=== PATIENT | female | born 1950 | race Caucasian/White ===

== ENCOUNTER → 2019-11-29 15:09 | Outpatient (BNVA) | payer MEDICARE, OTHER, SELFPAY | PROVIDERS: Family Provider Nurse Practitioner; PCP Urology; Visit Provider Nurse Practitioner | DX: R53.83 Other fatigue (principal) | CPT/HCPCS: 82728; 83540; 83550; 84443; 85025 ==

== ENCOUNTER → 2020-03-19 09:16 | Outpatient (BNVA) | payer MEDICARE, OTHER, SELFPAY | PROVIDERS: Family Provider Nurse Practitioner; PCP Nurse Practitioner; Referring Provider Nurse Practitioner; Visit Provider Specialist | DX: M25.531 Pain in right wrist (principal); M25.532 Pain in left wrist | CPT/HCPCS: 73110 ==

== ENCOUNTER → 2020-05-29 09:54 | Outpatient (BNVA) | payer MEDICARE, OTHER, SELFPAY | PROVIDERS: Family Provider Nurse Practitioner; PCP Nurse Practitioner; Visit Provider Internal Medicine | DX: Z11.59 Encounter for screening for other viral diseases (principal) | CPT/HCPCS: 87635 ==

== ENCOUNTER 2020-05-31 13:49 | Outpatient (CLI) | payer MEDICARE, OTHER, SELFPAY ==
--- NOTE | 2020-05-31 14:20 | PFTS_ITS ---
Date of Study:05/31/20 Date of Dictation: MECHANICS: Forced vital capacity (FVC) is normal. Forced expiratory volume in one second (FEV1) is normal. FEV1/FVC is normal. FLOW VOLUME LOOP: . LUNG VOLUMES: Total lung capacity (TLC) is normal. Residual volume (RV) is normal. DIFFUSING CAPACITY FOR CARBON MONOXIDE: Normal. INTERPRETATION: The pulmonary function tests are normal. Lung volumes are normal. Gas exchange (DLCO) is normal. MTDD
--- NOTE | 2020-05-31 14:41 | PFTS_ITS ---
Date of Study:05/31/20 Date of Dictation: 06/01/2020 MECHANICS: Forced vital capacity (FVC) is Normal Forced expiratory volume in one second (FEV1) is . Normal FEV1/FVC is Normal No significant bronchodilator response FLOW VOLUME LOOP: Slight scooping of expiratory limb suggestive of small airway obstruction . LUNG VOLUMES: Total lung capacity (TLC) is normal. Residual volume (RV) is . Normal DIFFUSING CAPACITY FOR CARBON MONOXIDE: Normal . INTERPRETATION: Normal study but FV loop showing slight scooping of expiratory limb suggestive of lower airway obstruction. Please correlate clinically MTDD
== END 2020-05-31 13:50 | disposition home or self-care (01) ==
LOC: RT 13:49
PROVIDERS: PCP Nurse Practitioner; Visit Provider Internal Medicine Pulmonary Disease
DX: J45.909 Unspecified asthma, uncomplicated (principal); K21.9 Gastro-esophageal reflux disease without esophagitis
CPT/HCPCS: 94060; 94070; 94726; 94729; J7611

== ENCOUNTER 2020-06-01 06:53 | Day surgery (SDC) | payer MEDICARE, OTHER, SELFPAY ==
[2020-05-31 13:18] VITALS: BMI 29.6
[2020-06-01 07:11] VITALS: BP 171/74; PULSE 77; RESP 18; TEMP 37.2; O2SAT 96
[2020-06-01] MEDS: CELEcoxib 200 mg Capsule 400 MG PO (07:21)
[2020-06-01] MEDS: sodium chloride 0.9% 1,000 ML 30 ML IV (07:40)
--- NOTE | 2020-06-01 07:53 | ANES.PREANE2 ---
Pre-Anesthetic Assessment Pre-Anesthetic Assessment: Height/Weight: Height 1.57 m Weight 73.482 kg Temp Pulse Resp BP Pulse Ox 99.0 F 77 18 171/74 96 06/01/20 07:11 06/01/20 07:11 06/01/20 07:11 06/01/20 07:11 06/01/20 07:11 Preop Diagnosis: Left carpal tunnel syndrome Proposed Procedure: Operation Date: 06/01/20 08:30 Proposed Procedures p Carpal Tunnel Release 53082 G56.02(Left) - Kristen Winters MD Familial anesthetic complications: None Was Beta Mp taken within 24 hours: N/A Last intake: Intake Last Liquid Date 05/31/20 Last Liquid Time 20:30 Last Solid Date 05/31/20 Last Solid Time 20:30 Social: Social History: No alcohol and No tobacco Exam: Pre-Anes Outpt Exam: alert, oriented x 3, clear to auscultation bilaterally and regular rate & rhythm Airway: Cervical ROM: WNL MP: 1 Dentition: Full Pulmonary: Pulmonary: Cough (seasonal allergies vs asthma (chronic) seeing Dr. Garcia - no dyspnea) GI: GI: GERD Metabolic: Metabolic: Hyperlipidemia and Thyroid Musc/skel: Comments: breast cancer L Neuropsych: Neuropsych: Neuropathy Anesthetic Plan: ASA status: 2 Anesthesia: MAC and Regional (specify below) Risk of > 500 ml blood loss (7ml/kg in children): No Meds/Allergies Current Medications: Current Medications Generic Name Dose Route Start Last Admin Trade Name Freq PRN Reason Stop Dose Admin Sodium Chloride 1,000 mls @ 30 ml s/hr 06/01/20 06:30 06/01/20 07:40 Sodium Chloride 0.9% IV 06/02/20 06:29 30 mls/hr .Q24H KAMILLA Administration PFSH Anesthesia PFSH: Medical History (Updated 05/31/20 @ 13:17 by Estefania Phelan) Breast cancer, left Chronic cystitis Chronic GERD Environmental and seasonal allergies Hx of radiation therapy Hyperlipidemia Hypertension 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 Surgical History (Updated 05/31/20 @ 13:18 by Estefania Phelan) History of cholecystectomy Laparoscopic 09/09/19 History of hysterectomy 1982 Hx of breast surgery Family History Other CAD (coronary artery disease) Cancer Chronic kidney disease (CKD) Diabetes Hyperlipidemia Hypertension Psychiatric illness Social History Smoking and tobacco status: never smoked Alcohol intake: never Adopted: No Caregiver/support person: No Lives independently: No Household members: spouse Housing: House Marital status: Number of children: 3 Number of grandchildren: 4 Current occupational status: retired Female Reproductive History: Date of last menstrual period: 02/19/82 Data Anesthesia Cardiac Studies: No Data to Display
--- NOTE | 2020-06-01 08:09 | W.PM.OPSUD ---
Surgery/Procedure H&P Update DATE OF PROCEDURE: June 01, 2020 DATE H&P PERFORMED: 05/14/20 H&P UPDATE INFORMATION: I have reviewed H&P completed within last 30 days, I have examined patient prior to procedure and Changes to prior documentation as noted here CHANGES TO PREVIOUS DOCUMENTATION: Recent pulmonary test and provisional diagnosis of asthma. To see Dr. Garcia. PREOP DIAGNOSIS: Left carpal tunnel syndrome PLANNED PROCEDURE: Operation Date: 06/01/20 08:30 Proposed Procedures p Carpal Tunnel Release 62373 G56.02(Left) - Kristen Winters MD Related Problem List Diagnoses (1) Carpal tunnel syndrome, left:
[2020-06-01 09:17] VITALS: BP 129/72; PULSE 75; RESP 18; TEMP 36.1; O2SAT 96
--- NOTE | 2020-06-01 09:20 | PM.OP ---
Operative Report Date of procedure: June 01, 2020 Pre-op Diagnosis: Left carpal tunnel syndrome Post-op diagnosis: same Post-op Findings: Severe compression across the carpal canal with hourglass shape and purplish discoloration of the median nerve. Procedure Done: Left carpal tunnel release Pathology: none sent Surgeon: Kristen Winters Network Services Project Manager: None Anesthesia: MAC (With Nina block) Estimated blood loss (mL): 5 Tourniquet time (min): 30 (At 250 mmHg) IV fluids (mL): 400 Urine output (mL): 0 Complications: None Findings: As noted above Condition: stable Disposition: same day Brief History: This 69-year-old woman presented with complaints of pain and numbness in left the hand secondary to symptoms consistent with carpal tunnel syndrome. She had difficulties with her activities of daily living. The patient wished to proceed with carpal tunnel release. Risks and complications were discussed with him and consents were signed. Procedure: The patient was brought to the operating theater. The patient had a [place] block with MAC. The tourniquet was elevated to 250 mmHg for a total tourniquet time of 30 minutes. The patient was also given Ancef 2 g preoperatively. The arm was then prepped and draped with DuraPrep in usual fashion with the arm draped free. A surgical pause was performed. At the time, the surgical pause, we confirmed the site and side of surgery. We also confirmed the patient's identity, appropriate and timely administration of preoperative antibiotics and preoperative surgical markings. An incision was then made along the thenar crease. The incision crossed the wrist joint in a curvilinear fashion. Dissection continued through skin and soft tissues using a scalpel. The palmaris longus was identified along with the transverse carpal ligament. Each of these was released carefully to avoid injury to the median nerve. We were able to dissect gently into the carpal canal which was noted to be quite tight with significant compression across the median nerve. The nerve was visualized and was an hourglass shape with purplish discoloration. The canal was subsequently palpated to assure there was no bony encroachment upon the canal. There was a quite thickened fibrous tissue within the canal, and this was opened longitudinally as well. The canal was then palpated distally and proximally to assure that my small finger was passed easily without impingement. Finding this to be so, attention was directed to closure. The wound was irrigated with ropivacaine plain. It was then closed with 3-0 nylon in an interrupted mattress fashion. Sterile dressing was then placed consisting of Xeroform gauze, fluffed fluffs, sterile soft roll, a volar splint, and an [place] wrap. The tourniquet was released after 30 minutes. There were no complications. There were no specimens. The procedure was well tolerated. Plan is the patient will be discharged home. Associated Problem List Diagnoses (1) Carpal tunnel syndrome, left:
[2020-06-01 09:31] VITALS: BP 131/60; PULSE 73; RESP 18; O2SAT 96
--- NOTE | 2020-06-01 10:10 | ANE.PACU2 ---
Inpatient post-anesthesia follow up: Airway intact: Yes Vital signs: Temperature 97.0 F Pulse Rate 73 Respiratory Rate 18 Blood Pressure 131/60 Pulse Oximetry 96 Oxygen Delivery Me thod Room Air Oxygen Flow Rate Fraction of Inspir ed Oxygen Hydration adequate: Yes Nausea and vomiting: No Pain level: 1 Mental status: Baseline
== END 2020-06-01 09:50 | disposition home or self-care (01) ==
PROVIDERS: PCP Nurse Practitioner; Visit Provider Specialist
PROC: (CPT 64721; principal; 2020-06-01 08:30)
DX: G56.02 Carpal tunnel syndrome, left upper limb (principal); E78.2 Mixed hyperlipidemia; I10 Essential (primary) hypertension
CPT/HCPCS: 64721; 12345; 96365; J0131; J0690; J2250; J2704; J3490; J7030

== ENCOUNTER 2020-07-12 01:13 | Emergency (ER) | payer MEDICARE, OTHER, SELFPAY ==
--- NOTE | 2020-07-12 01:14 | ECG_ITS ---
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 Measurements Intervals [place] Rate: 73 P: 11 AR: 183 QRS: -14 QRSD: 84 T: 15 QT: 391 QTc: 433 Interpretive Statements SINUS RHYTHM Compared to ECG 10/14/2018 12:08:56 No significant changes Electronically Signed On 07-12-2020 18:25:31 CDT by Kavon Koehler M.D. [email or web address]
--- NOTE | 2020-07-12 01:14 | XR_ITS ---
WS: [id number] Portable AP upright chest, 07/12/2020 Clinical Data: sob Comparison: Portable chest, 07/14/2019. Findings: Bilateral patchy opacities are seen throughout both lungs. No nodules, masses or effusions are seen. The heart is normal. The aortic arch and descending aorta shows mild tortuosity. Monitor le ads are on the chest wall. There are clips in the left upper quadrant and left axilla from surgery. XR/XR chest 1V portable [id number] Impression: 1. Diffuse bilateral patchy opacities most consistent with pneumonia. 2. Recommend repeat chest x-ray in one to 2 days.
[2020-07-12 01:20] VITALS: BP 171/80; PULSE 88; RESP 26; O2SAT 94; BMI 28.9
--- NOTE | 2020-07-12 01:25 | ED_ITS ---
HPI - SOB/Dyspnea General: Chief Complaint: Shortness of Breath/Dyspnea Stated Complaint: sob/covid recovered Time Seen by Provider: 07/12/20 01:16 Source: patient Mode of arrival: ambulatory Limitations: no limitations History of Present Illness: HPI Narrative: 69-year-old female states she been having cough low-grade wheezing or shortness of breath over the last week. Patient tested positive for Covid 10 days ago. Patient states she has been on steroids for 2 days along with inhalers with minimal improvement. Patient denies any vomiting or diarrhea. States her dyspnea improves with deep breaths and rest and is worse with exertion. Her pulse ox here is 93% on room air. MD elicited complaint: shortness of breath Associated symptoms: Deny abdominal pain, chest pain, fever(s), nausea or vomiting Review of Systems Const: Denies: fever(s), chills, body aches or change in appetite Eyes: Denies: blurry vision or eye discomfort ENMT: Denies: throat pain or dental pain Card: Denies: chest pain Resp: Reports: dyspnea GI: Denies: abdominal pain, nausea, vomiting or diarrhea : Denies: dysuria Musc: Denies: neck pain or back pain Skin/Breast: Denies: rash Neuro: Denies: headache(s) Psych: Denies: depression Kana/Lymph: Denies: easy bruising All/Imm: Denies: urticaria PFSH ED PFSH: Medical History Breast cancer, left Chronic cystitis Chronic GERD Environmental and seasonal allergies Hx of radiation therapy Hyperlipidemia Hypertension 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 Surgical History History of cholecystectomy Laparoscopic 09/09/19 History of hysterectomy 1982 Hx of breast surgery Family History Other CAD (coronary artery disease) Cancer Chronic kidney disease (CKD) Diabetes Hyperlipidemia Hypertension Psychiatric illness Social History Smoking and tobacco status: never smoked Second hand smoke exposure: Yes Alcohol intake: never Adopted: No Caregiver/support person: No Lives independently: Yes Household members: spouse and children Housing: House Marital status: Number of children: 3 Number of grandchildren: 4 Current occupational status: retired History of recent travel: No Current gender identity: Female Female Reproductive History: Date of last menstrual period: 02/19/82 Physical Exam Const: COMMON NORMALS: no acute distress, patient oriented x3 and healthy appearing HENMT: COMMON NORMALS: normocephalic and atraumatic HEAD & SCALP: normocephalic and atraumatic Eye: COMMON NORMALS: Equal, round and reactive pupils present and EOMs intact bilaterally PUPIL: Yes Equal, round and reactive pupils present Neck/C-Spine: COMMON NORMALS: full ROM and supple Chest: COMMONS NORMALS: normal inspection of the chest and normal palpation of entire chest wall Resp: COMMON NORMALS: normal respiratory effort, No retractions, No use of accessory muscles and clear to auscultation bilaterally AUSCULTATION: clear to auscultation bilaterally Cardio: COMMON NORMALS: regular rate, regular rhythm and No murmurs present (Cardio) RATE: regular rate RHYTHM: regular rhythm GI: COMMON NORMALS: Normal to inspection, nondistended, normoactive bowel sounds present, Soft to palpation, non-tender and no masses PALPATION: Yes Soft to palpation Extremity: COMMON NORMALS: normal to inspection and full ROM Neuro: COMMON NORMALS: patient oriented x3, moves all extremities and no focal motor deficits Psych: COMMON NORMALS: mental status grossly normal, Normal thought process present and cooperative THOUGHT PROCESS: Normal thought process present Skin: COMMON NORMALS: no rashes or lesions noted and no wounds GENERAL SKIN EXAM: no rashes or lesions noted Course Vital Signs: Vital signs: Vital Signs Pulse Rate 72 07/12/20 01:56 Respiratory Rate 18 07/12/20 01:56 Blood Pressure 155/77 07/12/20 01:56 Pulse Oximetry 93 07/12/20 01:56 MDM - SOB/Dyspnea MDM Narrative: Medical decision making narrative: Vanessa presents here with COVID-19 pneumonia. X-ray does show a left-sided infiltrate to be viral we will start her on doxycycline no. Patient here has normal saturation and blood work is all normal with no increased inflammatory markers. Patient's D-dimer is negative as well with no signs of pulmonary embolism. She does have a pulse ox at home and she is to return if she has any readings less than 90%. Patient is continue breathing treatments at home. She understands and agrees to the plan. Lab Data: Labs: Lab Results 07/12/20 07/12/20 07/12/20 Range/Units 01:49 01:49 01:49 WBC 3.8 L (4.0-10.0) 10^3/ uL RBC 3.81 L (4.1-5.3) 10^6/u L Hgb 11.5 (11.5-15.3) g/dL Hct 35.4 L (37.0-47.0) % MCV 92.9 (81-99) fL MCH 30.2 (28.0-34.0) pg MCHC 32.5 (30.0-36.0) g/dL RDW 15.3 H (12.1-15.1) % Plt Count 86 L (130-400) 10^3/c mm MPV 11.5 H (7.4-10.4) fL Neut % (Auto) 74.2 % Lymph % (Auto) 15.5 % [place] % (Auto) 9.5 % Eos % (Auto) 0.0 % Baso % (Auto) 0.0 % Neut # (Auto) 2.82 (1.8-7.7) 10^3/u L Lymph # (Auto) 0.6 L (0.8-4.8) 10^3/u L [place] # (Auto) 0.4 (0.2-0.9) 10^3/u L Eos # (Auto) 0.0 (0.0-0.8) 10^3/u L Baso # (Auto) 0.0 (0.0-0.1) 10^3/u L Nucleated RBC % (a uto) 0 % Nucleated RBCs # 0.0 /100WBC PT 14.50 (12.1-14.9) SECO NDS INR 1.09 (0.8-1.2) Fibrinogen (174-498) mg/dL D-Dimer 0.46 (0-0.59) ug/mIFE U Sodium 136 (136-145) mmol/L Potassium 3.8 (3.5-5.1) mmol/L Chloride 105 (98-107) mmol/L Carbon Dioxide 20 L (22-29) mmol/L Anion Gap 14.8 (5-19) BUN 8 (8-23) mg/dL Creatinine 0.6 (0.5-0.9) mg/dL GFR Calculation 98.8 (90-130) mL/min Glucose 159 H (65-115) mg/dL Calculated Osmolal ity 284 L (285-295) mOsm/k g Calcium 8.4 L (8.5-10.5) mg/dL Total Bilirubin 0.8 (0.15-1.2) mg/dL AST 56 H (0-32) U/L ALT 24 (0-33) U/L Alkaline Phosphata se 101 (35-105) IU/L C-Reactive Protein (0.0-4.9) mg/L NT-Pro-B Natriuret Pep 154 H (0-125) pg/mL Total Protein 5.5 L (6.6-8.7) g/dL Albumin 3.2 L (3.5-5.2) g/dL Globulin 2.3 (1.3-4.6) g/dL 07/12/20 07/12/20 Range/Units 01:49 01:49 WBC (4.0-10.0) 10^3/ uL RBC (4.1-5.3) 10^6/u L Hgb (11.5-15.3) g/dL Hct (37.0-47.0) % MCV (81-99) fL MCH (28.0-34.0) pg MCHC (30.0-36.0) g/dL RDW (12.1-15.1) % Plt Count (130-400) 10^3/c mm MPV (7.4-10.4) fL Neut % (Auto) % Lymph % (Auto) % [place] % (Auto) % Eos % (Auto) % Baso % (Auto) % Neut # (Auto) (1.8-7.7) 10^3/u L Lymph # (Auto) (0.8-4.8) 10^3/u L [place] # (Auto) (0.2-0.9) 10^3/u L Eos # (Auto) (0.0-0.8) 10^3/u L Baso # (Auto) (0.0-0.1) 10^3/u L Nucleated RBC % (a uto) % Nucleated RBCs # /100WBC PT (12.1-14.9) SECO NDS INR (0.8-1.2) Fibrinogen 334 (174-498) mg/dL D-Dimer (0-0.59) ug/mIFE U Sodium (136-145) mmol/L Potassium (3.5-5.1) mmol/L Chloride (98-107) mmol/L Carbon Dioxide (22-29) mmol/L Anion Gap (5-19) BUN (8-23) mg/dL Creatinine (0.5-0.9) mg/dL GFR Calculation (90-130) mL/min Glucose (65-115) mg/dL Calculated Osmolal ity (285-295) mOsm/k g Calcium (8.5-10.5) mg/dL Total Bilirubin (0.15-1.2) mg/dL AST (0-32) U/L ALT (0-33) U/L Alkaline Phosphata se (35-105) IU/L C-Reactive Protein 4.0 (0.0-4.9) mg/L NT-Pro-B Natriuret Pep (0-125) pg/mL Total Protein (6.6-8.7) g/dL Albumin (3.5-5.2) g/dL Globulin (1.3-4.6) g/dL Imaging Data^: CXR: Attestation: I personally reviewed and interpreted this imaging study as follows: My impression: infiltrates noted EKG Data^: EKG 1: Attestation: I personally reviewed and interpreted this EKG as follows: EKG Interpretation Date: 07/12/20 EKG interpretation time: 01:42 Interpretation: nsr hr [address] or t wave abnormalities qrs 84 qtc 417 Discharge Plan Discharge Patient Disposition: Home Clinical Impression: Pneumonia due to COVID-19 virus Condition: Stable Prescriptions: New doxycycline hyclate 100 mg tablet 100 mg PO BID 7 Days Qty: 14 RF: 0 No Action alendronate 70 mg tablet 70 mg PO DAILY RF: 0 Probiotic and Acidophilus 300-250 million cell-mg capsule 1 cap PO DAILY RF: 0 naproxen sodium [Aleve] 220 mg capsule 220 mg PO BID PRN (Reason: Pain) RF: 0 Hold Instructions: Resume on 06/29/20. calcium carbonate 500 mg calcium (1,250 mg) capsule 500 mg PO DAILY RF: 0 montelukast 10 mg tablet 10 mg PO DAILY Qty: 90 RF: 3 omeprazole 20 mg capsule,delayed release(DR/EC) 20 mg PO DAILY Qty: 90 RF: 3 simvastatin 20 mg tablet 20 mg PO DAILY Qty: 90 RF: 3 levothyroxine 100 mcg capsule 50 mcg PO DAILY RF: 0 albuterol sulfate [Ventolin HFA] 90 mcg/actuation HFA aerosol inhaler 2 puff INHALATION Q6H MDD 8 puffs PRN (Reason: shortness of breath or wheezing) Qty: 8.5 RF: 3 amoxicillin-pot clavulanate [Augmentin] 875-125 mg tablet 1 tab PO ONCE PRN (Reason: dysuria) Qty: 90 RF: 0 Symbicort 160-4.5 mcg/actuation HFA aerosol inhaler 2 puff INHALATION BID Qty: 10.2 RF: 3 fluticasone propionate 50 mcg/actuation spray,suspension 1 spray INTRANASAL BID RF: 0 ipratropium bromide 17 mcg/actuation Hfa Aerosol Inhaler 1 puff INHALATION BID RF: 0 Celebrex 200 mg capsule 200 mg PO DAILY Qty: 30 RF: 0 hydrocodone-acetaminophen 5-325 mg tablet 1 tab PO Q4H PRN (Reason: pain) Qty: 30 RF: 0 Discharge Orders: Discharge Order (Routine); Ordered 07/12/20 Ordered By: Mani Fuchs Referrals: Carlota Jefferson 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
[2020-07-12 01:55] LABS: Hematocrit 35.4 % (37.0-47.0); Hemoglobin 11.5 g/dL (11.5-15.3); Lymphocytes # 0.6 10^3/uL (0.8-4.8); Lymphocytes % 15.5 %; Mean Corpuscular HGB Conc 32.5 g/dL (30.0-36.0); Mean Corpuscular Hemoglobin 30.2 pg (28.0-34.0); Mean Corpuscular Volume 92.9 fL (81-99); Mean Platelet Volume 11.5 fL (7.4-10.4); Monocytes # 0.4 10^3/uL (0.2-0.9); Monocytes % 9.5 %; Neutrophils # 2.82 10^3/uL (1.8-7.7); Neutrophils % 74.2 %; Nucleated Red Blood Cells % 0 %; Platelet Count 86 10^3/cmm (130-400); Red Blood Count 3.81 10^6/uL (4.1-5.3); Red Cell Distribution Width 15.3 % (12.1-15.1); White Blood Count 3.8 10^3/uL (4.0-10.0)
[2020-07-12 01:56] VITALS: BP 155/77; PULSE 72; RESP 18; O2SAT 93
[2020-07-12] MEDS: dexamethasone 10 mg/mL INJ IVP (01:57)
[2020-07-12 02:06] LABS: INR 1.09 (0.8-1.2)
[2020-07-12 02:08] LABS: D Dimer 0.46 ug/mIFEU (0-0.59)
[2020-07-12 02:20] LABS: Fibrinogen 334 mg/dL (174-498)
[2020-07-12 02:22] LABS: Alanine Aminotransferase 24 U/L (0-33); Albumin Level 3.2 g/dL (3.5-5.2); Alkaline Phosphatase 101 IU/L (35-105); Anion Gap 14.8 (5-19); Aspartate Amino Transferase 56 U/L (0-32); Blood Urea Nitrogen 8 mg/dL (8-23); Calcium 8.4 mg/dL (8.5-10.5); Carbon Dioxide 20 mmol/L (22-29); Chloride 105 mmol/L (98-107); Globulin 2.3 g/dL (1.3-4.6); Glomerular Filtration Rate 98.8 mL/min (90-130); Glucose 159 mg/dL (65-115); NT Pro B Type Natriuretic Pept 154 pg/mL (0-125); Osmolality Calculated 284 mOsm/kg (285-295); Potassium 3.8 mmol/L (3.5-5.1); Sodium 136 mmol/L (136-145); Total Bilirubin 0.8 mg/dL (0.15-1.2); Total Protein 5.5 g/dL (6.6-8.7)
[2020-07-12 02:53] VITALS: BP 148/74; PULSE 65; RESP 20; O2SAT 94
[2020-07-12] MEDS: doxycycline 100 mg Tablet PO (02:53)
== END 2020-07-12 02:53 | disposition home or self-care (01) ==
PROVIDERS: Emergency Provider Emergency Medicine; PCP Nurse Practitioner
DX: U07.1 COVID-19 (principal); J12.89 Other viral pneumonia; Z77.22 Contact with and (suspected) exposure to environmental tobacco smoke (acute) (chronic); Z85.3 Personal history of malignant neoplasm of breast; E78.5 Hyperlipidemia, unspecified; I10 Essential (primary) hypertension; R06.02 Shortness of breath
CPT/HCPCS: 12345; 71045; 80053; 83880; 85025; 85378; 85384; 85610; 86140; 87040; 93005; 96374; 96375; 99282; 99283; J1100

== ENCOUNTER 2020-07-27 08:46 | Outpatient (CLI) | payer MEDICARE, OTHER, SELFPAY ==
--- NOTE | 2020-07-27 08:45 | USCV_ITS ---
Vanessa Stewart Age: 69 Gender: F : 1950 Exam Date: 07/27/2020 09:13 Ordering Phys: Ziyad Garcia Technologist: Sayra Lui Exam Location: [facility] [place]_ Indication: SOB 30 DAYS POST COVID PNEUMONIA BP: 117 / 67 HR: 46 Rhythm: Sinus Technical Quality: Fair MEASUREMENTS (Male / Female) Normal Values 2D ECHO LV Diastolic Diameter PLAX 3.9 cm 4.2 - 5.9 / 3.9 - 5.3 cm LV Systolic Diameter PLAX 2.7 cm LV Chamber Size 4.1 cm IVS Diastolic Thickness 1.0 cm 0.6 - 1.0 / 0.6 - 0.9 cm IVS Systolic Thickness 1.3 cm LVPW Diastolic Thickness 1.1 cm 0.6 - 1.0 / 0.6 - 0.9 cm LVPW Systolic Thickness 1.5 cm RV Chamber Size 2.8 cm LVOT Diameter 2.0 cm LV Ejection Fraction 2D Teich 57.2 % LV Ejection Fraction MOD 2C 64.6 % LV Ejection Fraction 2C AL 68.2 % LA Diameter 3.4 cm LA Width 3.1 cm LA Height 4.7 cm RA Width 3.7 cm RA Height 3.3 cm Aorta at Sinotubular Diameter 2.8 cm M-MODE LV Diastolic Diameter MM 4.4 cm 4.2 - 5.9 / 3.9 - 5.3 cm LV Systolic Diameter MM 2.5 cm LV Ejection Fraction MM Teich 76.2 % IVS Diastolic Thickness MM 1.3 cm 0.6 - 1.0 / 0.6 - 0.9 cm IVS Systolic Thickness MM 1.6 cm LVPW Diastolic Thickness MM 1.3 cm 0.6 - 1.0 / 0.6 - 0.9 cm LVPW Systolic Thickness MM 1.8 cm RV Diastolic Diameter MM 0.6 cm Aortic Annulus Diameter 3.5 cm LA Ao Ratio MM 1.1 MV E Point Septal Separation 0.3 cm DOPPLER AV Peak Velocity 182.0 cm/s LVOT Peak Velocity 91.7 cm/s AV Area Cont Eq vti 1.9 cm squared AV Area Cont Eq pk 1.6 cm squared MV Area PHT 2.5 cm squared Mitral E to A Ratio 0.8 MV E' Velocity 49.0 cm/s Mitral E to MV E' Ratio 11.1 Mitral E to LV E' Lateral Ratio 11.7 Mitral E to LV E' Septal Ratio 10.7 TR Peak Velocity 190.4 cm/s TR Peak Gradient 14.5 mmHg TR Mean Velocity 149.6 cm/s TR Mean Gradient 10.1 mmHg TR Velocity Time Integral 61.1 cm TV Peak E Velocity 66.0 cm/s Right Atrial Pressure 3.0 mmHg Pulmonary Artery Systolic Pressu 17.5 mmHg FINDINGS Left Ventricle Normal left ventricular size, systolic function and wall thickness, with no regional wall motion abnormalities. Left ventricular ejection fraction is estimated at 64%. Normal diastolic function. Right Ventricle Normal right ventricular size and systolic function. Right ventricular systolic pressure 17.5 mmHg. Right Atrium Normal right atrial size. Right atrial pressure estimated at 3 mmHg. Left Atrium Normal left atrial size. Mitral Valve Structurally normal mitral valve. No mitral valve stenosis. No mitral valve regurgitation. Aortic Valve Structurally normal trileaflet aortic valve. No aortic valve stenosis. No aortic valve regurgitation. Tricuspid Valve Structurally normal tricuspid valve. No tricuspid valve stenosis. Trace tricuspid valve regurgitation. Pulmonic Valve Pulmonic valve not well visualized. Trace pulmonary valve regurgitation. Pericardium No pericardial effusion. Aorta Normal size aortic root and proximal ascending aorta. Normal- sized inferior vena cava. CONCLUSIONS 1. Normal left ventricular size, systolic function and wall thickness, with no regional wall motion abnormalities. Left ventricular ejection fraction is estimated at 64%. Normal diastolic function. 2. Normal right ventricular size and systolic function. 3. Normal pulmonary artery pressure. 4. No significant valvular abnormality. 5. No prior similar studies to compare. Macrina Castillo MD (Electronically Signed) Final Date: 27 July 2020 13:55 S
== END 2020-07-27 08:47 | disposition home or self-care (01) ==
LOC: RAD 08:51
PROVIDERS: PCP Nurse Practitioner; Visit Provider Internal Medicine Pulmonary Disease
DX: R22.43 Localized swelling, mass and lump, lower limb, bilateral (principal); R05 Cough; K21.9 Gastro-esophageal reflux disease without esophagitis; J30.89 Other allergic rhinitis
CPT/HCPCS: 93306

== ENCOUNTER 2020-08-28 13:00 | Outpatient (CLI) | payer MEDICARE, OTHER, SELFPAY ==
--- NOTE | 2020-08-28 | USCV_ITS ---
Vanessa Stewart Age: 69 Gender: F : 1950 Exam Date: 08/28/2020 13:31 Ordering Phys: Carlota Jefferson Technologist: Sayra Lui Exam Location: [facility] [place] Indication: POST COVID AND EDEMA AND SOB BP: 116 / 62 HR: 57 Rhythm: Sinus Technical Quality: Adequate MEASUREMENTS (Male / Female) Normal Values 2D ECHO LV Diastolic Diameter PLAX 3.5 cm 4.2 - 5.9 / 3.9 - 5.3 cm LV Systolic Diameter PLAX 1.8 cm LV Chamber Size 3.5 cm IVS Diastolic Thickness 1.3 cm 0.6 - 1.0 / 0.6 - 0.9 cm IVS Systolic Thickness 2.1 cm LVPW Diastolic Thickness 1.2 cm 0.6 - 1.0 / 0.6 - 0.9 cm LVPW Systolic Thickness 1.5 cm RV Chamber Size 2.3 cm LVOT Diameter 2.0 cm LV Ejection Fraction 2D Teich 79.4 % LV Ejection Fraction MOD 2C 80.5 % LV Ejection Fraction 2C AL 81.4 % LA Diameter 3.2 cm LA Width 3.4 cm LA Height 4.7 cm RA Width 3.5 cm RA Height 3.6 cm Aorta at Sinotubular Diameter 3.0 cm M-MODE LV Diastolic Diameter MM 5.0 cm 4.2 - 5.9 / 3.9 - 5.3 cm LV Systolic Diameter MM 2.5 cm LV Ejection Fraction MM Teich 80.7 % IVS Diastolic Thickness MM 1.0 cm 0.6 - 1.0 / 0.6 - 0.9 cm IVS Systolic Thickness MM 1.4 cm LVPW Diastolic Thickness MM 0.8 cm 0.6 - 1.0 / 0.6 - 0.9 cm LVPW Systolic Thickness MM 1.3 cm RV Diastolic Diameter MM 0.3 cm Aortic Annulus Diameter 3.1 cm LA Ao Ratio MM 1.3 MV E Point Septal Separation 0.4 cm DOPPLER AV Peak Velocity 142.0 cm/s LVOT Peak Velocity 122.0 cm/s AV Area Cont Eq vti 3.0 cm squared AV Area Cont Eq pk 2.8 cm squared MV Area PHT 2.4 cm squared Mitral E to A Ratio 0.8 MV E' Velocity 43.5 cm/s Mitral E to MV E' Ratio 11.6 Mitral E to LV E' Lateral Ratio 12.9 Mitral E to LV E' Septal Ratio 10.7 TR Peak Velocity 263.0 cm/s TR Peak Gradient 27.7 mmHg TR Mean Velocity 199.7 cm/s TR Mean Gradient 17.7 mmHg TR Velocity Time Integral 81.8 cm TV Peak E Velocity 93.0 cm/s Right Atrial Pressure 3.0 mmHg Pulmonary Artery Systolic Pressu 30.7 mmHg PV Peak Velocity 108.0 cm/s RV Acceleration Time 0.1 s RV Ejection Time 0.4 s RV AcT/ET 0.3 FINDINGS Left Ventricle Normal left ventricular size and systolic function, EF 67 %. Mild left ventricular hypertrophy. No regional wall motion abnormalities. Grade I/IV diastolic dysfunction (abnormal relaxation filling pattern), normal to mildly elevated filling pressures. Right Ventricle The right ventricle is normal in size and function. Right Atrium The right atrium is normal in size. Left Atrium Mildly increased left atrial size. Mitral Valve No gross abnormalities noted Aortic Valve Structurally normal aortic valve without significant sclerosis or stenosis. There is no aortic regurgitation. Tricuspid Valve Trace tricuspid valve regurgitation. Pulmonic Valve Pulmonic valve not well visualized. Pericardium Normal pericardium without effusion. Aorta Normal ascending aorta dimension. CONCLUSIONS Normal left ventricular size and systolic function, EF 67 %. Mild left ventricular hypertrophy. No regional wall motion abnormalities. Grade I/IV diastolic dysfunction (abnormal relaxation filling pattern), normal to mildly elevated filling pressures. Mildly increased left atrial size. Trace tricuspid valve regurgitation. Normal pulmonary artery peak systolic pressure. There is no pericardial effusion. There are no intracardiac masses. Compared to the study from 07/27/2020, there may not be a significant change Dr Darci Hazel MD FAC (Electronically Signed) Final Date: 29 August 2020 09:38 S
== END 2020-08-28 13:01 | disposition home or self-care (01) ==
PROVIDERS: PCP Nurse Practitioner; Visit Provider Nurse Practitioner
DX: R60.9 Edema, unspecified (principal); R06.02 Shortness of breath; I07.1 Rheumatic tricuspid insufficiency
CPT/HCPCS: 93306

== ENCOUNTER 2020-10-22 10:05 | Outpatient (CLI) | payer MEDICARE, OTHER, SELFPAY ==
[2020-10-22 11:00] LABS: Alanine Aminotransferase 29 U/L (0-33); Albumin Level 2.2 g/dL (3.5-5.2); Alkaline Phosphatase 86 IU/L (35-105); Anion Gap 12.7 (5-19); Aspartate Amino Transferase 58 U/L (0-32); Blood Urea Nitrogen 8 mg/dL (8-23); Calcium 8.2 mg/dL (8.5-10.5); Carbon Dioxide 26 mmol/L (22-29); Chloride 97 mmol/L (98-107); Globulin 1.9 g/dL (1.3-4.6); Glucose 98 mg/dL (65-115); Osmolality Calculated 272 mOsm/kg (285-295); Potassium 3.7 mmol/L (3.5-5.1); Sodium 132 mmol/L (136-145); Total Bilirubin 4.8 mg/dL (0.15-1.2); Total Protein 4.1 g/dL (6.6-8.7)
== END 2020-10-22 10:06 | disposition home or self-care (01) ==
PROVIDERS: PCP Nurse Practitioner; Visit Provider Nurse Practitioner
DX: N28.9 Disorder of kidney and ureter, unspecified (principal)
CPT/HCPCS: 80053

== ENCOUNTER 2020-11-06 15:10 | Outpatient (CLI) | payer MEDICARE, OTHER, SELFPAY ==
[2020-11-06 15:49] LABS: Alanine Aminotransferase 35 U/L (0-33); Albumin Level 2.4 g/dL (3.5-5.2); Alkaline Phosphatase 87 IU/L (35-105); Anion Gap 11.6 (5-19); Aspartate Amino Transferase 73 U/L (0-32); Blood Urea Nitrogen 9 mg/dL (8-23); Calcium 8.1 mg/dL (8.5-10.5); Carbon Dioxide 25 mmol/L (22-29); Chloride 98 mmol/L (98-107); Glucose 98 mg/dL (65-115); Osmolality Calculated 271 mOsm/kg (285-295); Potassium 3.6 mmol/L (3.5-5.1); Sodium 131 mmol/L (136-145); Total Protein 4.4 g/dL (6.6-8.7)
== END 2020-11-06 15:11 | disposition home or self-care (01) ==
PROVIDERS: PCP Nurse Practitioner; Visit Provider Nurse Practitioner
DX: K75.81 Nonalcoholic steatohepatitis (NASH) (principal)
CPT/HCPCS: 80053

== ENCOUNTER 2020-12-06 10:52 | Outpatient (CLI) | payer MEDICARE, OTHER, SELFPAY ==
[2020-12-06 11:34] LABS: Free T4 Free Thyroxine 1.14 ng/dL (0.82-1.77); T3 Free 1.9 PG/ML (2.0-4.4); Thyroid Stimulating Hormone 6.89 uIU/mL (0.27-4.20)
== END 2020-12-06 10:53 | disposition home or self-care (01) ==
PROVIDERS: PCP Nurse Practitioner; Visit Provider Nurse Practitioner
DX: E03.9 Hypothyroidism, unspecified (principal)
CPT/HCPCS: 84439; 84443; 84481

== ENCOUNTER → 2021-01-03 11:44 | Day surgery (SDC) | payer MEDICARE, OTHER, SELFPAY ==
[2021-01-03 12:11] VITALS: BP 122/62; PULSE 80; RESP 18; TEMP 36.5
[2021-01-03 12:49] LABS: INR 3.76 (0.8-1.2)
--- NOTE | 2021-01-03 13:43 | SUR.PREOP ---
RADIOLOGIST (DR. STEVENSON) DID NOT PREFORM PROCEDURE DUE TO PT/INR LEVELS. DR. MILLER (REFERRING DR) OFFICE RECOMMENDED PATIENT GO THROUGH ER TO BE SEEN AND POSSIBLY DRAINED.
== END ==
PROVIDERS: PCP Nurse Practitioner; Visit Provider Internal Medicine Gastroenterology
DX: R18.8 Other ascites (principal)
CPT/HCPCS: 85610

== ENCOUNTER 2021-01-08 10:50 | Outpatient (RCR) | payer MEDICARE, OTHER, SELFPAY | END 2021-01-18 23:59 | disposition home or self-care (01) | LOC: SPT 10:50 | PROVIDERS: PCP Nurse Practitioner; Referring Provider Transplant Surgery; Visit Provider Transplant Surgery | DX: K74.60 Unspecified cirrhosis of liver (principal); K75.81 Nonalcoholic steatohepatitis (NASH); Z01.818 Encounter for other preprocedural examination; R53.81 Other malaise | CPT/HCPCS: 97110; 97161 ==

== ENCOUNTER 2021-01-19 06:00 | Outpatient (RCR) | payer MEDICARE, OTHER, SELFPAY | END 2021-02-18 23:59 | disposition home or self-care (01) | LOC: SPT 06:00 | PROVIDERS: PCP Nurse Practitioner; Referring Provider Transplant Surgery; Visit Provider Transplant Surgery | DX: K75.81 Nonalcoholic steatohepatitis (NASH) (principal); K74.60 Unspecified cirrhosis of liver; R53.81 Other malaise | CPT/HCPCS: 97110 ==

== ENCOUNTER 2021-02-19 06:00 | Outpatient (RCR) | payer MEDICARE, OTHER, SELFPAY | END 2021-03-20 23:59 | disposition home or self-care (01) | LOC: SPT 06:00 | PROVIDERS: PCP Nurse Practitioner; Referring Provider Transplant Surgery; Visit Provider Transplant Surgery | DX: K75.81 Nonalcoholic steatohepatitis (NASH) (principal); K74.60 Unspecified cirrhosis of liver; R53.81 Other malaise | CPT/HCPCS: 97110 ==

== ENCOUNTER 2021-03-21 06:00 | Outpatient (RCR) | payer MEDICARE, OTHER, SELFPAY | END 2021-04-20 23:59 | disposition home or self-care (01) | LOC: SPT 06:00 | PROVIDERS: PCP Nurse Practitioner; Referring Provider Transplant Surgery; Visit Provider Transplant Surgery | DX: K75.81 Nonalcoholic steatohepatitis (NASH) (principal); K74.60 Unspecified cirrhosis of liver; R53.81 Other malaise | CPT/HCPCS: 97110 ==

== ENCOUNTER 2021-04-21 06:00 | Outpatient (RCR) | payer MEDICARE, OTHER, SELFPAY | END 2021-05-21 23:59 | disposition home or self-care (01) | LOC: SPT 06:00 | PROVIDERS: PCP Nurse Practitioner; Referring Provider Transplant Surgery; Visit Provider Transplant Surgery | DX: K75.81 Nonalcoholic steatohepatitis (NASH) (principal); K74.60 Unspecified cirrhosis of liver; Z01.818 Encounter for other preprocedural examination; R53.81 Other malaise | CPT/HCPCS: 97110 ==

== ENCOUNTER 2021-05-22 06:00 | Outpatient (RCR) | payer MEDICARE, OTHER, SELFPAY | END 2021-06-20 23:59 | disposition home or self-care (01) | LOC: SPT 06:00 | PROVIDERS: Referring Provider Transplant Surgery; Visit Provider Transplant Surgery | DX: K74.60 Unspecified cirrhosis of liver (principal); R53.81 Other malaise | CPT/HCPCS: 97110 ==

== ENCOUNTER 2021-05-25 22:25 | Emergency (ER) | payer MEDICARE, OTHER, SELFPAY ==
[2021-05-25 22:38] VITALS: BP 130/64; PULSE 72; RESP 18; TEMP 36.7; O2SAT 97; BMI 23.8
--- NOTE | 2021-05-25 23:15 | XRR_ITS ---
PROCEDURE INFORMATION: Exam: XR Chest Exam date and time: 05/25/2021 11:15 PM Age: 70 years old Clinical indication: Pain; Other: Tightness; Additional info: Chest tightness TECHNIQUE: Imaging protocol: XR of the chest. Views: 1 view. COMPARISON: CR XR chest 2V* [id number] 03/20/2021 12:51 PM FINDINGS: Tubes, catheters and devices: Surgical haim overlie the lower left thorax. Lungs: No consolidative pulmonary infiltrates are noted. Pleural spaces: No pleural effusion. No pneumothorax. Heart/Mediastinum: No cardiomegaly. Bones/joints: Mild degenerative thoracic spine changes. XR/XR chest 1V portable [id number] IMPRESSION: 1. No acute abnormality demonstrated. 2. There is no interval change from the prior examination.
--- NOTE | 2021-05-25 23:16 | ECG_ITS ---
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1950 Requested By: Patrick Vela Order Number: [id number] Radha MD: ROSCOE JULIAN Measurements Intervals [place] Rate: 72 P: SD: QRS: 3 QRSD: 86 T: 34 QT: 392 QTc: 431 Interpretive Statements Sinus RHYTHM POSSIBLE ANTERIOR MYOCARDIAL INFARCTION [30 ms Q WAVE IN V3/V4, OR R < 0.2 mV IN V4], OF INDETERMINATE AGE INTERPRETATION BASED ON A DEFAULT AGE OF 40 YEARS Compared to ECG 07/12/2020 01:42:05 Supraventricular rhythm now present Myocardial infarct finding now present Sinus rhythm no longer present Electronically Signed On 05-26-2021 15:03:51 CDT by ROSCOE JULIAN [id number]
[2021-05-26] MEDS: sodium chloride 0.9% 500 ML IV (00:46)
[2021-05-26 00:52] LABS: Add Urine Microscopic? NO; Charge for UA Resulting for Rev
[2021-05-26 00:55] LABS: Bilirubin Urine Neg (Negative); Blood Urine Neg (Negative); Glucose Urine UA Norm (Normal); Ketones Urine Negative (Negative); Leukocyte Esterase Urine Negative (Negative); Nitrate Urine Negative (Negative); Protein Urine Neg (Negative); Urine Appearance Clear (CLEAR); Urine Color Yellow (Yellow); Urobilinogen Urine 1 mg/dL (Negative); pH Urine 5 (5-7)
[2021-05-26 00:56] LABS: Basophils % 0.4 %; Eosinophils # 0.1 10^3/uL (0.0-0.8); Eosinophils % 1.1 %; Hematocrit 29.3 % (37.0-47.0); Hemoglobin 9.9 g/dL (11.5-15.3); Lymphocytes # 1.1 10^3/uL (0.8-4.8); Lymphocytes % 11.2 %; Mean Corpuscular HGB Conc 33.8 g/dL (30.0-36.0); Mean Corpuscular Volume 100.7 fl (81-99); Mean Platelet Volume 11.1 fL (7.4-10.4); Monocytes # 1.2 10^3/uL (0.2-0.9); Monocytes % 12.3 %; Neutrophils # 7.24 10^3/uL (1.8-7.7); Neutrophils % 74.4 %; Nucleated Red Blood Cells % 0 %; Platelet Count 97 10^3/cmm (130-400); Red Blood Count 2.91 10^6/uL (4.1-5.3); Red Cell Distribution Width 13.6 % (12.1-15.1); White Blood Count 9.7 10^3/uL (4.0-10.0)
[2021-05-26 01:08] LABS: INR 1.87 (0.8-1.2)
[2021-05-26 01:15] LABS: Troponin(5th) Baseline 12 ng/L (0-10)
--- NOTE | 2021-05-26 01:16 | ECG_ITS ---
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
[2021-05-26 01:17] LABS: Alanine Aminotransferase 17 U/L (0-33); Albumin Level 3.3 g/dL (3.5-5.2); Alkaline Phosphatase 103 IU/L (35-105); Anion Gap 16.3 (5-19); Aspartate Amino Transferase 30 U/L (0-32); Blood Urea Nitrogen 18 mg/dL (8-23); C Reactive Protein 2.5 mg/L (0.0-4.9); Calcium 8.9 mg/dL (8.5-10.5); Carbon Dioxide 21 mmol/L (22-29); Chloride 100 mmol/L (98-107); Globulin 1.7 g/dL (1.3-4.6); Glucose 108 mg/dL (65-115); Magnesium 1.6 mg/dL (1.7-2.3); Osmolality Calculated 278 mOsm/kg (285-295); Potassium 4.3 mmol/L (3.5-5.1); Sodium 133 mmol/L (136-145); Total Bilirubin 3.4 mg/dL (0.15-1.2)
[2021-05-26 01:18] LABS: Ammonia 24 umol/L (11-51)
[2021-05-26 01:23] LABS: Procalcitonin 0.19 ng/mL (0-0.5)
[2021-05-26 01:55] LABS: Troponin 5 2HR 11.09 ng/L (0-10)
[2021-05-26 01:56] LABS: Troponin 5 2HR Delta -0.91 ABS# (0-10)
[2021-05-26] MEDS: LORazepam 2 mg/mL INJ 1 mL 0.5 MG IVP (01:57)
--- NOTE | 2021-05-26 02:08 | W.ED.ANXIETY ---
HPI - Anxiety General: Chief Complaint: Anxiety Stated Complaint: Panic Attach Time Seen by Provider: 05/25/21 22:54 History of Present Illness: HPI narrative: 70-year-old female with a history of chronic liver disease, on a transplant list at [facility], presents with what she believes is a panic attack. She has had some chest tightness, trouble breathing, and a feeling of anxiety earlier in the evening. She calmed her self down, and went to sleep, but got out of bed with the same feelings around 11 PM. She denies fever. She does state that she has had some pressure in her head over her sinuses and is prone to sinus infections. MD complaint: anxiety and shortness of breath Symptoms: dyspnea, chest pain and palpitations Severity: moderate Quality: improving Place: home History of similar episodes: Yes Provoking factors: other Relieving factors: nothing Exacerbating factors: nothing Associated symptoms: Reports chest pain, diaphoresis, palpitations and short of breath; Deny anorexia, fever(s), nausea, syncope or vomiting Review of Systems Const: Reports: diaphoresis; Denies: fever(s) Card: Reports: chest pain and palpitations; Denies: syncope Resp: Reports: dyspnea; Denies: productive cough or non-productive cough GI: Denies: nausea or vomiting PFS ED PFSH: Medical History (Updated 05/26/21 @ 02:17 by Patrick Jimenez DO) Breast cancer, left Chronic cystitis Chronic GERD Environmental and seasonal allergies Hx of radiation therapy Hyperlipidemia Hypertension 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 Surgical History History of cholecystectomy Laparoscopic 09/09/19 History of hysterectomy 1982 Hx of breast surgery Family History Other CAD (coronary artery disease) Cancer Chronic kidney disease (CKD) Diabetes Hyperlipidemia Hypertension Psychiatric illness Social History Smoking and tobacco status: never smoked Second hand smoke exposure: Yes Alcohol intake: never Adopted: No Caregiver/support person: No Lives independently: Yes Household members: spouse and children Housing: House Marital status: Number of children: 3 Number of grandchildren: 4 Current occupational status: retired History of recent travel: No Current gender identity: Female Female Reproductive History: Date of last menstrual period: 02/19/82 Physical Exam Const: GENERAL APPEARANCE: cooperative, anxious (mildly) and frail appearing ORIENTATION/CONSCIOUSNESS: Yes awake, Yes oriented to person, Yes oriented to place and Yes oriented to time HENMT: COMMON NORMALS: normocephalic HEAD & SCALP: normocephalic Chest: COMMONS NORMALS: normal inspection of the chest Resp: COMMON NORMALS: normal respiratory effort, No use of accessory muscles and clear to auscultation bilaterally AUSCULTATION: clear to auscultation bilaterally Cardio: COMMON NORMALS: regular rate and regular rhythm RATE: regular rate RHYTHM: regular rhythm HEART SOUNDS: Murmur heart sound present Neuro: SENSORIUM/ORIENTATION: Yes oriented to person, Yes oriented to place and Yes oriented to time Course Vital Signs: Vital signs: Vital Signs Temperature 98.0 F 05/25/21 22:38 Pulse Rate 78 05/26/21 02:41 Respiratory Rate 18 05/26/21 02:41 Blood Pressure 139/82 05/26/21 02:41 Pulse Oximetry 98 05/26/21 02:41 MDM - Anxiety MDM Narrative: Medical decision making narrative: Patient is improved after Ativan and IV fluid. Hemoglobin is 10 which is stable for her. Bicarbonate is 21. Chest x-ray is negative for any acute disease. INR is 1.87 which is improved from her last. Urinalysis is negative. Troponin did not elevated 2 hours significantly. She will be treated for a sinus infection. Because of this, Covid PCR was sent. Lab Data: Labs: Lab Results 05/25/21 05/26/21 05/26/21 Range/Units 23:21 00:30 00:30 WBC 9.7 (4.0-10.0) 10^3/ uL RBC 2.91 L (4.1-5.3) 10^6/u L Hgb 9.9 L (11.5-15.3) g/dL Hct 29.3 L (37.0-47.0) % MCV 100.7 H (81-99) fl MCH 34.0 (28.0-34.0) pg MCHC 33.8 (30.0-36.0) g/dL RDW 13.6 (12.1-15.1) % Plt Count 97 L (130-400) 10^3/c mm MPV 11.1 H (7.4-10.4) fL Neut % (Auto) 74.4 % Lymph % (Auto) 11.2 % Foard % (Auto) 12.3 % Eos % (Auto) 1.1 % Baso % (Auto) 0.4 % Neut # (Auto) 7.24 (1.8-7.7) 10^3/u L Lymph # (Auto) 1.1 (0.8-4.8) 10^3/u L Foard # (Auto) 1.2 H (0.2-0.9) 10^3/u L Eos # (Auto) 0.1 (0.0-0.8) 10^3/u L Baso # (Auto) 0.0 (0.0-0.1) 10^3/u L Nucleated RBC % (a uto) 0 % Nucleated RBCs # 0.0 /100WBC PT 22.00 H (12.1-14.9) SECO NDS INR 1.87 H (0.8-1.2) Sodium (136-145) mmol/L Potassium (3.5-5.1) mmol/L Chloride (98-107) mmol/L Carbon Dioxide (22-29) mmol/L Anion Gap (5-19) BUN (8-23) mg/dL Creatinine (0.5-0.9) mg/dL GFR Calculation Glucose (65-115) mg/dL Calculated Osmolal ity (285-295) mOsm/k g Calcium (8.5-10.5) mg/dL Magnesium (1.7-2.3) mg/dL Total Bilirubin (0.15-1.2) mg/dL AST (0-32) U/L ALT (0-33) U/L Alkaline Phosphata se (35-105) IU/L Ammonia (11-51) umol/L Troponin T Baselin e (0-10) ng/L Troponin T 120 [place] (0-10) ng/L Delta Troponin T (0-10) ABS# C-Reactive Protein (0.0-4.9) mg/L Total Protein (6.6-8.7) g/dL Albumin (3.5-5.2) g/dL Globulin (1.3-4.6) g/dL Procalcitonin (0-0.5) ng/mL Urine Color Yellow (Yellow) Urine Appearance Clear (CLEAR) Urine pH 5 (5-7) Ur Specific Gravit y 1.020 (1.005-1.030) Urine Protein Neg (Negative) Urine Glucose (UA) Norm (Normal) Urine Ketones Negative (Negative) Urine Blood Neg (Negative) Urine Nitrate Negative (Negative) Urine Bilirubin Neg (Negative) Urine Urobilinogen 1 H (Negative) mg/dL Ur Leukocyte Vivi ase Negative (Negative) 05/26/21 05/26/21 05/26/21 Range/Units 00:30 00:30 00:30 WBC (4.0-10.0) 10^3/ uL RBC (4.1-5.3) 10^6/u L Hgb (11.5-15.3) g/dL Hct (37.0-47.0) % MCV (81-99) fl MCH (28.0-34.0) pg MCHC (30.0-36.0) g/dL RDW (12.1-15.1) % Plt Count (130-400) 10^3/c mm MPV (7.4-10.4) fL Neut % (Auto) % Lymph % (Auto) % Foard % (Auto) % Eos % (Auto) % Baso % (Auto) % Neut # (Auto) (1.8-7.7) 10^3/u L Lymph # (Auto) (0.8-4.8) 10^3/u L Foard # (Auto) (0.2-0.9) 10^3/u L Eos # (Auto) (0.0-0.8) 10^3/u L Baso # (Auto) (0.0-0.1) 10^3/u L Nucleated RBC % (a uto) % Nucleated RBCs # /100WBC PT (12.1-14.9) SECO NDS INR (0.8-1.2) Sodium 133 L (136-145) mmol/L Potassium 4.3 (3.5-5.1) mmol/L Chloride 100 (98-107) mmol/L Carbon Dioxide 21 L (22-29) mmol/L Anion Gap 16.3 (5-19) BUN 18 (8-23) mg/dL Creatinine 1.0 H (0.5-0.9) mg/dL GFR Calculation Not Reportable Glucose 108 (65-115) mg/dL Calculated Osmolal ity 278 L (285-295) mOsm/k g Calcium 8.9 (8.5-10.5) mg/dL Magnesium 1.6 L (1.7-2.3) mg/dL Total Bilirubin 3.4 H (0.15-1.2) mg/dL AST 30 (0-32) U/L ALT 17 (0-33) U/L Alkaline Phosphata se 103 (35-105) IU/L Ammonia 24 (11-51) umol/L Troponin T Baselin e 12 H (0-10) ng/L Troponin T 120 [place] (0-10) ng/L Delta Troponin T (0-10) ABS# C-Reactive Protein 2.5 (0.0-4.9) mg/L Total Protein 5.0 L (6.6-8.7) g/dL Albumin 3.3 L (3.5-5.2) g/dL Globulin 1.7 (1.3-4.6) g/dL Procalcitonin 0.19 (0-0.5) ng/mL Urine Color (Yellow) Urine Appearance (CLEAR) Urine pH (5-7) Ur Specific Gravit y (1.005-1.030) Urine Protein (Negative) Urine Glucose (UA) (Normal) Urine Ketones (Negative) Urine Blood (Negative) Urine Nitrate (Negative) Urine Bilirubin (Negative) Urine Urobilinogen (Negative) mg/dL Ur Leukocyte Vivi ase (Negative) 05/26/21 Range/Units 01:30 WBC (4.0-10.0) 10^3/ uL RBC (4.1-5.3) 10^6/u L Hgb (11.5-15.3) g/dL Hct (37.0-47.0) % MCV (81-99) fl MCH (28.0-34.0) pg MCHC (30.0-36.0) g/dL RDW (12.1-15.1) % Plt Count (130-400) 10^3/c mm MPV (7.4-10.4) fL Neut % (Auto) % Lymph % (Auto) % Foard % (Auto) % Eos % (Auto) % Baso % (Auto) % Neut # (Auto) (1.8-7.7) 10^3/u L Lymph # (Auto) (0.8-4.8) 10^3/u L Foard # (Auto) (0.2-0.9) 10^3/u L Eos # (Auto) (0.0-0.8) 10^3/u L Baso # (Auto) (0.0-0.1) 10^3/u L Nucleated RBC % (a uto) % Nucleated RBCs # /100WBC PT (12.1-14.9) SECO NDS INR (0.8-1.2) Sodium (136-145) mmol/L Potassium (3.5-5.1) mmol/L Chloride (98-107) mmol/L Carbon Dioxide (22-29) mmol/L Anion Gap (5-19) BUN (8-23) mg/dL Creatinine (0.5-0.9) mg/dL GFR Calculation Glucose (65-115) mg/dL Calculated Osmolal ity (285-295) mOsm/k g Calcium (8.5-10.5) mg/dL Magnesium (1.7-2.3) mg/dL Total Bilirubin (0.15-1.2) mg/dL AST (0-32) U/L ALT (0-33) U/L Alkaline Phosphata se (35-105) IU/L Ammonia (11-51) umol/L Troponin T Baselin e (0-10) ng/L Troponin T 120 [place] 11.09 H (0-10) ng/L Delta Troponin T -0.91 L (0-10) ABS# C-Reactive Protein (0.0-4.9) mg/L Total Protein (6.6-8.7) g/dL Albumin (3.5-5.2) g/dL Globulin (1.3-4.6) g/dL Procalcitonin (0-0.5) ng/mL Urine Color (Yellow) Urine Appearance (CLEAR) Urine pH (5-7) Ur Specific Gravit y (1.005-1.030) Urine Protein (Negative) Urine Glucose (UA) (Normal) Urine Ketones (Negative) Urine Blood (Negative) Urine Nitrate (Negative) Urine Bilirubin (Negative) Urine Urobilinogen (Negative) mg/dL Ur Leukocyte Vivi ase (Negative) Discharge Plan Discharge Patient Disposition: Home Clinical Impression: Acute anxiety Sinusitis Qualifiers: Sinusitis location: maxillary Chronicity: acute Recurrence: non-recurrent Qualified Code(s): J01.00 - Acute maxillary sinusitis, unspecified Condition: Stable Prescriptions: New doxycycline hyclate 100 mg tablet 100 mg PO BID 10 Days Qty: 20 RF: 0 Afrin (oxymetazoline) 0.05 % spray,non-aerosol 2 spray intranasal Q12H PRN (Reason: nasal congestion) 3 Days Qty: 15 RF: 0 No Action alendronate 70 mg tablet 70 mg PO DAILY RF: 0 Probiotic and Acidophilus 300-250 million cell-mg capsule 1 cap PO DAILY RF: 0 naproxen sodium [Aleve] 220 mg capsule 220 mg PO BID PRN (Reason: Pain) RF: 0 Hold Instructions: Resume on 06/29/20. calcium carbonate 500 mg calcium (1,250 mg) capsule 500 mg PO DAILY RF: 0 montelukast 10 mg tablet 10 mg PO DAILY Qty: 90 RF: 3 omeprazole 20 mg capsule,delayed release(DR/EC) 20 mg PO DAILY Qty: 90 RF: 3 simvastatin 20 mg tablet 20 mg PO DAILY Qty: 90 RF: 3 levothyroxine 100 mcg capsule 50 mcg PO DAILY RF: 0 albuterol sulfate [Ventolin HFA] 90 mcg/actuation HFA aerosol inhaler 2 puff INHALATION Q6H MDD 8 puffs PRN (Reason: shortness of breath or wheezing) Qty: 8.5 RF: 3 Symbicort 160-4.5 mcg/actuation HFA aerosol inhaler 2 puff INHALATION BID Qty: 10.2 RF: 3 fluticasone propionate 50 mcg/actuation spray,suspension 1 spray INTRANASAL BID RF: 0 nystatin 100,000 unit/mL suspension 1 ml PO BID Qty: 2 RF: 0 ipratropium bromide 17 mcg/actuation Hfa Aerosol Inhaler 1 puff INHALATION BID RF: 0 Discharge Orders: Discharge ED (Routine); Ordered 05/26/21 Ordered By: Patrick Jimenez Patient Instructions: Sinusitis (ED), Anxiety (ED) Activity Restrictions/Additional Instructions: Return for worsening symptoms despite treatment including worsening chest discomfort, shortness of breath, any mental status changes, other concerns. Coding Level of Care Code ED Adjunct Phlebotomy Instructor for Chg Fwd Exam Detailed
[2021-05-26 02:41] VITALS: BP 139/82; PULSE 78; RESP 18; O2SAT 98
[2021-05-26 02:58] VITALS: BP 141/72; PULSE 75; RESP 18; O2SAT 99
[2021-05-27 19:58] LABS: Quest SARS-CoV-2 RNA NOT DETECTED (NOT DETECTED)
== END 2021-05-26 02:50 | disposition home or self-care (01) ==
PROVIDERS: Emergency Provider Emergency Medicine
DX: F41.9 Anxiety disorder, unspecified (principal); J01.00 Acute maxillary sinusitis, unspecified; Z85.3 Personal history of malignant neoplasm of breast; E78.5 Hyperlipidemia, unspecified; I10 Essential (primary) hypertension; Z77.22 Contact with and (suspected) exposure to environmental tobacco smoke (acute) (chronic); Z20.822 Contact with and (suspected) exposure to COVID-19
CPT/HCPCS: 71045; 80053; 81003; 82140; 83735; 84145; 84484; 85025; 85610; 86140; 87635; 93005; 96361; 96374; 99283; J2060; J7040

== ENCOUNTER 2021-06-01 20:26 | Emergency (ER) | payer MEDICARE, OTHER, SELFPAY ==
[2021-06-01 20:32] VITALS: BP 102/64; PULSE 68; RESP 16; TEMP 36.1; O2SAT 95; BMI 23.6
[2021-06-01 22:48] VITALS: BP 111/45; PULSE 70; RESP 16; O2SAT 98
--- NOTE | 2021-06-01 23:08 | W.ED.ANXIETY ---
HPI - Anxiety General: Chief Complaint: Anxiety Stated Complaint: anxity Time Seen by Provider: 06/01/21 23:08 History of Present Illness: HPI narrative: Ms. 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 She reports no longstanding history of psychiatric concerns however for the past year has had intermittent increasing anxiety regarding her medical illness. She has difficulty precisely describing symptoms however notes episodes where she has racing thoughts and just cannot stop thinking about her medical illness. These are not usually provoked by any specific changes or findings. The description of symptoms is not the classic panic attack type. She earlier today endorsed having gradual onset of symptoms that have pretty much lasted all day. She tried Valium which she had leftover from a procedure which did provide mild relief. She has never been diagnosed with any psychiatric diagnosis and has not been treated with medication. Otherwise she denies specific medical complaints. Of note her liver disease has actually been somewhat improving with a number of weeks now where she has not had to have paracentesis. No HI or SI. No other specific exacerbating, alleviating, or provoking factors identified. Review of Systems General: Reports: 10 or more systems reviewed and unremarkable except in HPI and below Narrative: CONSTITUTIONAL: denies fever, fatigue, weakness EYES - denies pain, denies loss of vision NOSE - denies congestion or rhinorrhea. THROAT - denies sore throat or difficulty swallowing. CARDIOVASCULAR - denies chest pain and palpitations RESPIRATORY - denies shortness of breath and cough GASTROINTESTINAL - denies abdominal pain, no nausea vomiting, no changes in bowel habits GENITOURINARY - denies dysuria or urinary frequency MUSCULOSKELETAL- denies deformity or pain SKIN - denies rashes or new changed skin lesions NEUROLOGIC - denies focal weakness or sensory changes HEMATOLOGIC/LYMPHATIC -positive for easy bruising. Denies lymphadenopathy. Psych- see HPI PFS ED PFSH: Medical History Breast cancer, left Chronic cystitis Chronic GERD Environmental and seasonal allergies Hx of radiation therapy Hyperlipidemia Hypertension 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 Surgical History History of cholecystectomy Laparoscopic 09/09/19 History of hysterectomy 1982 Hx of breast surgery Family History Other CAD (coronary artery disease) Cancer Chronic kidney disease (CKD) Diabetes Hyperlipidemia Hypertension Psychiatric illness Social History Smoking and tobacco status: never smoked Second hand smoke exposure: Yes Alcohol intake: never Adopted: No Caregiver/support person: No Lives independently: Yes Household members: spouse and children Housing: House Marital status: Number of children: 3 Number of grandchildren: 4 Current occupational status: retired History of recent travel: No Current gender identity: Female Female Reproductive History: Date of last menstrual period: 02/19/82 Physical Exam Narrative: EXAM NARRATIVE: GENERAL/CONSTITUTIONAL - well-appearing. No acute distress. Mildly anxious Eyes - PERRL, no conjunctival injection ENMT - Atraumatic external nose and ears. Moist mucous membranes NECK - supple. trachea midline CARDIOVASCULAR - regular rate and rhythm. Peripheral pulses 2+ and equal RESPIRATORY -clear to auscultation bilaterally. No retractions or accessory muscle use. ABDOMEN/GI - Nontender/Nondistended. No tenderness to percussion or evidence of peritonitis MSK - Extremities without obvious deformity or tenderness to palpation SKIN - Warm, Dry NEURO - alert and appropriately oriented. strength and sensation intact. Moves all extremities equally. PSYCH -anxious affect Course ED course: - Patient was seen and evaluated by me at bedside - Patient placed on cardiac monitors, IV access obtained - Initial evaluation notable for somewhat anxious appearance, no acute distress. - Given complex past medical history including thyroid disorder which the patient reports is poorly controlled and absence of longstanding anxiety disorder reviewed labs are warranted. - Labs notable for similar to baseline findings. - I discussed the case with Dr. Lauren of the psychiatry department who said I could consider starting the patient on buspirone. - I had extensive discussion with the patient regarding the challenges of medication initiation from the emergency department. I did offer her buspirone but discussed the risks of hepatic metabolism associated with this medication. At this time she declined this medication. She did receive some relief with Valium, I will give the patient a short course of these so that she can have decent quality of life and functionality between now and follow-up with a primary care provider. I discussed the risks of benzodiazepines. The patient verbalized understanding. - Based on patient history, evaluation, labs, and imaging as interpreted the most likely cause of the patient's condition is anxiety related to medical condition - The results of ED evaluation were discussed with the patient including prescriptions and/or symptomatic cares (if applicable) including appropriate and responsible use, followup plan, and return precautions. The patient verbalized understanding and felt safe for discharge. - Patient discharged in satisfactory condition. Vital Signs: Vital signs: Vital Signs Temperature 96.9 F L 06/01/21 20:32 Pulse Rate 73 06/02/21 03:48 Respiratory Rate 15 06/02/21 03:48 Blood Pressure 107/56 06/02/21 03:48 Pulse Oximetry 97 06/02/21 03:48 MDM - Anxiety Medical Records: Attestation: I reviewed the patient's medical records. EKG Data^: EKG 1: Attestation: I personally reviewed and interpreted this EKG as follows: EKG interpretation date: 06/01/21 EKG interpretation time: 23:53 Prior EKG tracings: available for review Interpretation: Chest X-Ray 06/01/21 23:53 IMPRESSION: 1. Mild emphysema. 2. No acute disease. Twelve-lead EKG shows a regular sinus rhythm at a rate 71. DC interval 181, QRS duration 83, QTc 377. Left axis deviation. Interpretation: Sinus rhythm, nonspecific ST segment abnormalities. Other EKG comments: Chest X-Ray 06/01/21 23:53 IMPRESSION: 1. Mild emphysema. 2. No acute disease. EKG 2: Attestation: I personally reviewed and interpreted this EKG as follows: EKG interpretation date: 06/02/12 EKG interpretation time: 02:15 Prior EKG tracings: available for review Interpretation: Chest X-Ray 06/01/21 23:53 IMPRESSION: 1. Mild emphysema. 2. No acute disease. EKG shows a regular sinus rhythm at a rate of 72. DC interval 178, QRS duration 86, QTc 472. Left axis deviation. Interpretation: Sinus rhythm. Nonspecific ST segment abnormalities. Similar to prior. Other EKG comments: Chest X-Ray 06/01/21 23:53 IMPRESSION: 1. Mild emphysema. 2. No acute disease. Lab Data: Attestation: I reviewed the patient's lab results. Labs: Lab Results 06/01/21 06/01/21 06/01/21 Range/Units 23:11 23:11 23:21 WBC 9.6 (4.0-10.0) 10^3/ uL RBC 2.83 L (4.1-5.3) 10^6/u L Hgb 9.8 L (11.5-15.3) g/dL Hct 29.2 L (37.0-47.0) % MCV 103.2 H (81-99) fl MCH 34.6 H (28.0-34.0) pg MCHC 33.6 (30.0-36.0) g/dL RDW 14.3 (12.1-15.1) % Plt Count 95 L (130-400) 10^3/c mm MPV 11.3 H (7.4-10.4) fL Neut % (Auto) 62.5 % Lymph % (Auto) 19.8 % Sutton % (Auto) 14.3 % Eos % (Auto) 2.6 % Baso % (Auto) 0.3 % Neut # (Auto) 6.01 (1.8-7.7) 10^3/u L Lymph # (Auto) 1.9 (0.8-4.8) 10^3/u L Sutton # (Auto) 1.4 H (0.2-0.9) 10^3/u L Eos # (Auto) 0.3 (0.0-0.8) 10^3/u L Baso # (Auto) 0.0 (0.0-0.1) 10^3/u L Nucleated RBC % (a uto) 0 % Nucleated RBCs # 0.0 /100WBC Sodium 135 L (136-145) mmol/L Potassium 4.8 (3.5-5.1) mmol/L Chloride 104 (98-107) mmol/L Carbon Dioxide 23 (22-29) mmol/L Anion Gap 12.8 (5-19) BUN 19 (8-23) mg/dL Creatinine 1.0 H (0.5-0.9) mg/dL GFR Calculation Not Reportable Glucose 105 (65-115) mg/dL Calculated Osmolal ity 283 L (285-295) mOsm/k g Calcium 8.3 L (8.5-10.5) mg/dL Total Bilirubin 2.9 H (0.15-1.2) mg/dL AST 29 (0-32) U/L ALT 16 (0-33) U/L Alkaline Phosphata se 91 (35-105) IU/L Troponin T Baselin e 11 H (0-10) ng/L Troponin T 120 Min [place] (0-10) ng/L Delta Troponin T (0-10) ABS# Total Protein 4.7 L (6.6-8.7) g/dL Albumin 3.0 L (3.5-5.2) g/dL Globulin 1.7 (1.3-4.6) g/dL TSH 7.78 H (0.27-4.20) uIU/ mL Free T4 (0.82-1.77) ng/d L Urine Color (Yellow) Urine Appearance (CLEAR) Urine pH (5-7) Ur Specific Gravit y (1.005-1.030) Urine Protein (Negative) Urine Glucose (UA) (Normal) Urine Ketones (Negative) Urine Blood (Negative) Urine Nitrate (Negative) Urine Bilirubin (Negative) Urine Urobilinogen (Negative) mg/dL Ur Leukocyte Vivi ase (Negative) 06/02/21 06/02/21 06/02/21 Range/Units 00:21 02:15 02:15 WBC (4.0-10.0) 10^3/ uL RBC (4.1-5.3) 10^6/u L Hgb (11.5-15.3) g/dL Hct (37.0-47.0) % MCV (81-99) fl MCH (28.0-34.0) pg MCHC (30.0-36.0) g/dL RDW (12.1-15.1) % Plt Count (130-400) 10^3/c mm MPV (7.4-10.4) fL Neut % (Auto) % Lymph % (Auto) % Sutton % (Auto) % Eos % (Auto) % Baso % (Auto) % Neut # (Auto) (1.8-7.7) 10^3/u L Lymph # (Auto) (0.8-4.8) 10^3/u L Sutton # (Auto) (0.2-0.9) 10^3/u L Eos # (Auto) (0.0-0.8) 10^3/u L Baso # (Auto) (0.0-0.1) 10^3/u L Nucleated RBC % (a uto) % Nucleated RBCs # /100WBC Sodium (136-145) mmol/L Potassium (3.5-5.1) mmol/L Chloride (98-107) mmol/L Carbon Dioxide (22-29) mmol/L Anion Gap (5-19) BUN (8-23) mg/dL Creatinine (0.5-0.9) mg/dL GFR Calculation Glucose (65-115) mg/dL Calculated Osmolal ity (285-295) mOsm/k g Calcium (8.5-10.5) mg/dL Total Bilirubin (0.15-1.2) mg/dL AST (0-32) U/L ALT (0-33) U/L Alkaline Phosphata se (35-105) IU/L Troponin T Baselin e (0-10) ng/L Troponin T 120 Min [place] 11.01 H (0-10) ng/L Delta Troponin T 0.01 (0-10) ABS# Total Protein (6.6-8.7) g/dL Albumin (3.5-5.2) g/dL Globulin (1.3-4.6) g/dL TSH (0.27-4.20) uIU/ mL Free T4 1.33 (0.82-1.77) ng/d L Urine Color Yellow (Yellow) Urine Appearance Clear (CLEAR) Urine pH 5 (5-7) Ur Specific Gravit y 1.025 (1.005-1.030) Urine Protein Neg (Negative) Urine Glucose (UA) Norm (Normal) Urine Ketones 1+ H (Negative) Urine Blood Neg (Negative) Urine Nitrate Negative (Negative) Urine Bilirubin 1+ H (Negative) Urine Urobilinogen 4 H (Negative) mg/dL Ur Leukocyte Vivi ase Negative (Negative) Discharge Plan Discharge Patient Disposition: Home Clinical Impression: Anxiety and depression Condition: Stable Prescriptions: New Valium 2 mg tablet 2 mg PO BID PRN (Reason: anxiety) Qty: 10 RF: 0 No Action alendronate 70 mg tablet 70 mg PO DAILY RF: 0 Probiotic and Acidophilus 300-250 million cell-mg capsule 1 cap PO DAILY RF: 0 naproxen sodium [Aleve] 220 mg capsule 220 mg PO BID PRN (Reason: Pain) RF: 0 Hold Instructions: Resume on 06/29/20. calcium carbonate 500 mg calcium (1,250 mg) capsule 500 mg PO DAILY RF: 0 montelukast 10 mg tablet 10 mg PO DAILY Qty: 90 RF: 3 omeprazole 20 mg capsule,delayed release(DR/EC) 20 mg PO DAILY Qty: 90 RF: 3 simvastatin 20 mg tablet 20 mg PO DAILY Qty: 90 RF: 3 levothyroxine 100 mcg capsule 50 mcg PO DAILY RF: 0 albuterol sulfate [Ventolin HFA] 90 mcg/actuation HFA aerosol inhaler 2 puff INHALATION Q6H MDD 8 puffs PRN (Reason: shortness of breath or wheezing) Qty: 8.5 RF: 3 Symbicort 160-4.5 mcg/actuation HFA aerosol inhaler 2 puff INHALATION BID Qty: 10.2 RF: 3 fluticasone propionate 50 mcg/actuation spray,suspension 1 spray INTRANASAL BID RF: 0 nystatin 100,000 unit/mL suspension 1 ml PO BID Qty: 2 RF: 0 doxycycline hyclate 100 mg tablet 100 mg PO BID 10 Days Qty: 20 RF: 0 ipratropium bromide 17 mcg/actuation Hfa Aerosol Inhaler 1 puff INHALATION BID RF: 0 Discharge Orders: Discharge ED (Routine); Ordered 06/02/21 Ordered By: Miguel Verma Discharge Diet: Usual diet Discharge Activity: Resume usual activity Patient Instructions: Medication Safety, Depression (ED), Anxiety (ED) Activity Restrictions/Additional Instructions: Thank you for visiting the emergency department. You were seen and evaluated for anxiety and depression. There is no obvious laboratory abnormality to explain your symptoms so they will likely primary symptoms. As discussed, this is best handled by a primary care provider. Please follow-up with your primary care provider. Please return to the emergency department for anything that you are concerned about and feel needs emergency department evaluation. Coding Level of Care Code ED Branch Operations Manager for Jessica Boyd
--- NOTE | 2021-06-01 23:12 | ECG_ITS ---
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 Measurements Intervals [place] Rate: 71 P: 25 CT: 181 QRS: -5 QRSD: 83 T: 5 QT: 347 QTc: 377 Interpretive Statements SINUS RHYTHM POSSIBLE LEFT ATRIAL ENLARGEMENT [-0.1mV P-WAVE IN V1/V2] LOW QRS VOLTAGE IN PRECORDIAL LEADS [QRS DEFLECTION < 1.0 mV IN CHEST LEADS] POSSIBLE ANTERIOR MYOCARDIAL INFARCTION , PROBABLY OLD [30 ms Q WAVE IN V3/V4, OR R < 0.2 mV IN V4] Compared to ECG 05/26/2021 01:15:00 Low QRS voltage now present Myocardial infarct finding now present T-wave abnormality no longer present Electronically Signed On 06-03-2021 21:36:39 CDT by Macrina Castillo M.D. [id number]
[2021-06-01 23:41] LABS: Basophils % 0.3 %; Eosinophils # 0.3 10^3/uL (0.0-0.8); Eosinophils % 2.6 %; Hematocrit 29.2 % (37.0-47.0); Hemoglobin 9.8 g/dL (11.5-15.3); Lymphocytes # 1.9 10^3/uL (0.8-4.8); Lymphocytes % 19.8 %; Mean Corpuscular HGB Conc 33.6 g/dL (30.0-36.0); Mean Corpuscular Hemoglobin 34.6 pg (28.0-34.0); Mean Corpuscular Volume 103.2 fl (81-99); Mean Platelet Volume 11.3 fL (7.4-10.4); Monocytes # 1.4 10^3/uL (0.2-0.9); Monocytes % 14.3 %; Neutrophils # 6.01 10^3/uL (1.8-7.7); Neutrophils % 62.5 %; Nucleated Red Blood Cells % 0 %; Platelet Count 95 10^3/cmm (130-400); Red Blood Count 2.83 10^6/uL (4.1-5.3); Red Cell Distribution Width 14.3 % (12.1-15.1); White Blood Count 9.6 10^3/uL (4.0-10.0)
--- NOTE | 2021-06-01 23:53 | XRR_ITS ---
PROCEDURE INFORMATION: Exam: XR Chest Exam date and time: 06/01/2021 11:53 PM Age: 70 years old Clinical indication: Pain; Chest pressure; Additional info: Chest pain TECHNIQUE: Imaging protocol: XR of the chest. Views: 1 view. COMPARISON: CR (CHEST, ) 05/25/2021 11:21 PM FINDINGS: Lungs: Mild emphysema. Pleural spaces: Unremarkable. No pleural effusion. No pneumothorax. Heart/Mediastinum: Unremarkable. No cardiomegaly. Bones/joints: Anterior cervical fixation hardware is in place. Soft tissues: Surgical clips overlie the region of the left chest wall. Organs: There has been a cholecystectomy. XR/XR chest 1V portable [id number] IMPRESSION: 1. Mild emphysema. 2. No acute disease.
[2021-06-02 00:16] LABS: Alanine Aminotransferase 16 U/L (0-33); Alkaline Phosphatase 91 IU/L (35-105); Anion Gap 12.8 (5-19); Aspartate Amino Transferase 29 U/L (0-32); Blood Urea Nitrogen 19 mg/dL (8-23); Calcium 8.3 mg/dL (8.5-10.5); Carbon Dioxide 23 mmol/L (22-29); Chloride 104 mmol/L (98-107); Globulin 1.7 g/dL (1.3-4.6); Glucose 105 mg/dL (65-115); Osmolality Calculated 283 mOsm/kg (285-295); Potassium 4.8 mmol/L (3.5-5.1); Sodium 135 mmol/L (136-145); Thyroid Stimulating Hormone 7.78 uIU/mL (0.27-4.20); Total Bilirubin 2.9 mg/dL (0.15-1.2); Total Protein 4.7 g/dL (6.6-8.7)
[2021-06-02 00:32] LABS: Add Urine Microscopic? NO; Charge for UA Resulting for Rev
[2021-06-02 00:40] LABS: Bilirubin Urine 1+ (Negative); Blood Urine Neg (Negative); Glucose Urine UA Norm (Normal); Ketones Urine 1+ (Negative); Leukocyte Esterase Urine Negative (Negative); Nitrate Urine Negative (Negative); Protein Urine Neg (Negative); Specific Gravity, Urine 1.025 (1.005-1.030); Urine Appearance Clear (CLEAR); Urine Color Yellow (Yellow); Urobilinogen Urine 4 mg/dL (Negative); pH Urine 5 (5-7)
[2021-06-02 01:22] LABS: Troponin(5th) Baseline 11 ng/L (0-10)
[2021-06-02 01:45] VITALS: BP 122/51; PULSE 75; RESP 15; O2SAT 96
--- NOTE | 2021-06-02 01:53 | ECG_ITS ---
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 Measurements Intervals [place] Rate: 72 P: 22 VT: 178 QRS: -2 QRSD: 86 T: 11 QT: 430 QTc: 472 Interpretive Statements SINUS RHYTHM POSSIBLE LEFT ATRIAL ENLARGEMENT [-0.1mV P-WAVE IN V1/V2] LOW QRS VOLTAGE IN PRECORDIAL LEADS [QRS DEFLECTION < 1.0 mV IN CHEST LEADS] POSSIBLE ANTERIOR MYOCARDIAL INFARCTION , PROBABLY OLD [30 ms Q WAVE IN V3/V4, OR R < 0.2 mV IN V4] Compared to ECG 06/01/2021 23:47:15 No significant changes Electronically Signed On 06-03-2021 21:36:28 CDT by Macrina Castillo M.D. [id number]
[2021-06-02 02:48] LABS: Troponin 5 2HR 11.01 ng/L (0-10); Troponin 5 2HR Delta 0.01 ABS# (0-10)
[2021-06-02 02:57] LABS: Free T4 Free Thyroxine 1.33 ng/dL (0.82-1.77)
[2021-06-02 03:48] VITALS: BP 107/56; PULSE 73; RESP 15; O2SAT 97
== END 2021-06-02 03:36 | disposition home or self-care (01) ==
PROVIDERS: Emergency Provider Emergency Medicine
DX: F41.8 Other specified anxiety disorders (principal); Z85.3 Personal history of malignant neoplasm of breast; E78.5 Hyperlipidemia, unspecified; I10 Essential (primary) hypertension; Z77.22 Contact with and (suspected) exposure to environmental tobacco smoke (acute) (chronic)
CPT/HCPCS: 71045; 80053; 81003; 84439; 84443; 84484; 85025; 93005; 99283

== ENCOUNTER 2021-06-21 06:00 | Outpatient (RCR) | payer MEDICARE, OTHER, SELFPAY | END 2021-07-21 23:59 | disposition home or self-care (01) | LOC: SPT 06:00 | PROVIDERS: PCP Nurse Practitioner; Visit Provider Transplant Surgery | DX: Z01.818 Encounter for other preprocedural examination (principal); K75.81 Nonalcoholic steatohepatitis (NASH); R53.81 Other malaise | CPT/HCPCS: 97110 ==

== ENCOUNTER 2021-07-03 08:34 | Outpatient (CLI) | payer MEDICARE, OTHER, SELFPAY ==
--- NOTE | 2021-07-03 08:42 | USCV_ITS ---
Vanessa Stewart Age: 70 Gender: F : 1950 Exam Date: 07/03/2021 09:21 Ordering Phys: Carlota Jefferson Technologist: Sayra Lui Exam Location: [facility] [place] Indication: MURMUR BP: 110 / 48 HR: 67 Rhythm: Sinus Technical Quality: Adequate MEASUREMENTS (Male / Female) Normal Values 2D ECHO LV Diastolic Diameter PLAX 3.8 cm 4.2 - 5.9 / 3.9 - 5.3 cm LV Systolic Diameter PLAX 2.6 cm LV Chamber Size 3.0 cm IVS Diastolic Thickness 1.1 cm 0.6 - 1.0 / 0.6 - 0.9 cm IVS Systolic Thickness 1.5 cm LVPW Diastolic Thickness 0.8 cm 0.6 - 1.0 / 0.6 - 0.9 cm LVPW Systolic Thickness 1.3 cm RV Chamber Size 3.1 cm LVOT Diameter 2.0 cm LV Ejection Fraction 2D Teich 59.2 % LV Ejection Fraction MOD 2C 60.2 % LV Ejection Fraction 2C AL 59.6 % LA Diameter 4.2 cm LA Width 2.8 cm LA Height 5.2 cm RA Width 3.2 cm RA Height 3.8 cm Aorta at Sinotubular Diameter 2.6 cm M-MODE LV Diastolic Diameter MM 4.1 cm 4.2 - 5.9 / 3.9 - 5.3 cm LV Systolic Diameter MM 1.8 cm LV Ejection Fraction MM Teich 87.5 % IVS Diastolic Thickness MM 0.9 cm 0.6 - 1.0 / 0.6 - 0.9 cm IVS Systolic Thickness MM 1.6 cm LVPW Diastolic Thickness MM 0.9 cm 0.6 - 1.0 / 0.6 - 0.9 cm LVPW Systolic Thickness MM 1.4 cm RV Diastolic Diameter MM 1.1 cm Aortic Annulus Diameter 3.2 cm LA Ao Ratio MM 1.5 MV E Point Septal Separation 0.3 cm DOPPLER AV Peak Velocity 211.0 cm/s LVOT Peak Velocity 141.0 cm/s AV Area Cont Eq vti 2.2 cm squared AV Area Cont Eq pk 2.1 cm squared MV Area PHT 2.7 cm squared Mitral E to A Ratio 1.1 MV E' Velocity 72.0 cm/s Mitral E to MV E' Ratio 10.7 Mitral E to LV E' Lateral Ratio 10.9 Mitral E to LV E' Septal Ratio 10.4 TR Peak Velocity 195.8 cm/s TR Peak Gradient 15.3 mmHg TR Mean Velocity 152.9 cm/s TR Mean Gradient 10.3 mmHg TR Velocity Time Integral 55.1 cm TV Peak E Velocity 86.0 cm/s Right Atrial Pressure 3.0 mmHg Pulmonary Artery Systolic Pressu 18.3 mmHg PV Peak Velocity 108.0 cm/s RV Acceleration Time 0.2 s RV Ejection Time 0.4 s RV AcT/ET 0.6 FINDINGS Left Ventricle Normal left ventricular size and wall thickness. Hyperdynamic left ventricular systolic function with no regional wall motion abnormalities. Left ventricular ejection fraction is estimated at 75 %. Normal diastolic function. Right Ventricle Normal right ventricular size and systolic function. Right ventricular systolic pressure 22 mmHg. Right Atrium Normal right atrial size. Right atrial pressure estimated at 3 mmHg. Left Atrium Mildly increased left atrial size. Mitral Valve Mild bowing of posterior mitral valve leaflet without significant prolapse. No mitral valve stenosis. No significant mitral valve regurgitation. Aortic Valve Structurally normal trileaflet aortic valve. No aortic valve stenosis. No aortic valve regurgitation. Tricuspid Valve Structurally normal tricuspid valve. Mild tricuspid valve regurgitation. Pulmonic Valve Structurally normal pulmonic valve. No pulmonary valve stenosis. Trace pulmonary valve regurgitation. Pericardium No pericardial effusion. Aorta Normal size aortic root and proximal ascending aorta. Normal- sized inferior vena cava with greater than 50% respiratory variation. CONCLUSIONS 1. Normal left ventricular size and mildly increased wall thickness. Hyperdynamic left ventricular systolic function with no regional wall motion abnormalities. Left ventricular ejection fraction is estimated at 75 %. Normal diastolic function. 2. Normal right ventricular size and systolic function. 3. Mild tricuspid valve regurgitation. 4. Mild bowing of posterior mitral valve leaflet without significant prolapse. 5. Normal pulmonary artery pressure. 6. No significant change when compared to prior echocardiogram dated 10/29/2019. Macrina Castillo MD (Electronically Signed) Final Date: 04 July 2021 13:45 S
== END 2021-07-03 08:35 | disposition home or self-care (01) ==
LOC: RAD 08:40
PROVIDERS: PCP Nurse Practitioner; Visit Provider Nurse Practitioner
DX: R01.1 Cardiac murmur, unspecified (principal); I07.1 Rheumatic tricuspid insufficiency
CPT/HCPCS: 93306

== ENCOUNTER 2021-07-22 06:00 | Outpatient (RCR) | payer MEDICARE, OTHER, SELFPAY | END 2021-08-20 23:59 | disposition home or self-care (01) | LOC: SPT 06:00 | PROVIDERS: PCP Nurse Practitioner; Visit Provider Transplant Surgery | DX: K75.81 Nonalcoholic steatohepatitis (NASH) (principal); K74.60 Unspecified cirrhosis of liver; R53.81 Other malaise | CPT/HCPCS: 97110 ==

== ENCOUNTER 2021-08-21 06:00 | Outpatient (RCR) | payer MEDICARE, OTHER, SELFPAY | END 2021-09-20 23:59 | disposition home or self-care (01) | LOC: SPT 06:00 | PROVIDERS: PCP Nurse Practitioner; Visit Provider Transplant Surgery | DX: K75.81 Nonalcoholic steatohepatitis (NASH) (principal); K74.60 Unspecified cirrhosis of liver; Z01.818 Encounter for other preprocedural examination; R53.81 Other malaise | CPT/HCPCS: 97110 ==

== ENCOUNTER 2021-09-09 14:58 | Outpatient (CLI) | payer MEDICARE, OTHER, SELFPAY ==
--- NOTE | 2021-09-09 15:02 | XR_ITS ---
WS: [id number] Exam: XR DEXA axial skeleton* [id number] Date/Time of Exam: 09/09/2021 3:02 PM Reason For Exam: POST MENOPAUSAL DEXA BONE DENSITOMETRY Outbrain The L1-L4 bone mineral density measures 0.988 g/cm2. This corresponds to a T score of -1.6 and Z scor e of 0.3. Left femoral neck bone mineral density measures 0.828 g/cm2. This corresponds to T score of -1.4 and Z score of 0.3. Right femoral neck bone mineral density measures 0.877 g/cm2. This corresponds to a T score of -1.0 a nd Z score of 0.7. Mean femoral neck bone mineral density measures 0.853 g/cm2. This corresponds to a T score of -1.2 an d Z score of 0.5 XR/XR DEXA axial skeleton* [id number] IMPRESSION: Bone mineral density lies in the osteopenic range. Refer to detailed summary.
== END 2021-09-09 14:59 | disposition home or self-care (01) ==
PROVIDERS: PCP Nurse Practitioner; Visit Provider Nurse Practitioner
DX: Z78.0 Asymptomatic menopausal state (principal)
CPT/HCPCS: 77080

== ENCOUNTER 2021-09-21 06:00 | Outpatient (RCR) | payer MEDICARE, OTHER, SELFPAY | END 2021-10-21 23:59 | disposition home or self-care (01) | LOC: SPT 06:00 | PROVIDERS: PCP Nurse Practitioner; Visit Provider Transplant Surgery | DX: K75.81 Nonalcoholic steatohepatitis (NASH) (principal); K74.60 Unspecified cirrhosis of liver; R53.81 Other malaise | CPT/HCPCS: 97110 ==

== ENCOUNTER 2021-10-22 06:00 | Outpatient (RCR) | payer MEDICARE, OTHER, SELFPAY | END 2021-11-18 23:59 | disposition home or self-care (01) | LOC: SPT 06:00 | PROVIDERS: PCP Nurse Practitioner; Visit Provider Transplant Surgery | DX: K75.81 Nonalcoholic steatohepatitis (NASH) (principal); K74.60 Unspecified cirrhosis of liver; R53.81 Other malaise | CPT/HCPCS: 97110 ==

== ENCOUNTER 2021-11-19 06:00 | Outpatient (RCR) | payer MEDICARE, OTHER, SELFPAY | END 2021-12-19 23:59 | disposition home or self-care (01) | LOC: SPT 06:00 | PROVIDERS: PCP Nurse Practitioner; Visit Provider Transplant Surgery | DX: K75.81 Nonalcoholic steatohepatitis (NASH) (principal); K74.60 Unspecified cirrhosis of liver; Z01.818 Encounter for other preprocedural examination; R53.81 Other malaise | CPT/HCPCS: 97110 ==

== ENCOUNTER 2022-02-04 06:00 | Outpatient (RCR) | payer MEDICARE, OTHER, SELFPAY | END 2022-02-18 23:59 | disposition home or self-care (01) | LOC: SPT 06:00 | PROVIDERS: PCP Nurse Practitioner; Visit Provider Transplant Surgery | DX: M62.81 Muscle weakness (generalized) (principal); Z94.4 Liver transplant status | CPT/HCPCS: 97110; 97161 ==

== ENCOUNTER 2022-02-19 06:00 | Outpatient (RCR) | payer MEDICARE, OTHER, SELFPAY | END 2022-03-20 23:59 | disposition home or self-care (01) | LOC: SPT 06:00 | PROVIDERS: PCP Nurse Practitioner; Visit Provider Transplant Surgery | DX: M62.81 Muscle weakness (generalized) (principal); Z94.4 Liver transplant status | CPT/HCPCS: 97110 ==

== ENCOUNTER 2022-03-21 06:00 | Outpatient (RCR) | payer MEDICARE, OTHER, SELFPAY | END 2022-04-20 23:59 | disposition home or self-care (01) | LOC: SPT 06:00 | PROVIDERS: PCP Nurse Practitioner; Visit Provider Transplant Surgery | DX: R53.1 Weakness (principal); Z48.23 Encounter for aftercare following liver transplant | CPT/HCPCS: 97110 ==

== ENCOUNTER 2022-04-21 06:00 | Outpatient (RCR) | payer MEDICARE, OTHER, SELFPAY | END 2022-05-21 23:59 | disposition home or self-care (01) | LOC: SPT 06:00 | PROVIDERS: PCP Nurse Practitioner; Visit Provider Transplant Surgery | DX: M62.81 Muscle weakness (generalized) (principal); Z94.4 Liver transplant status | CPT/HCPCS: 97110 ==

== ENCOUNTER 2022-05-22 06:00 | Outpatient (RCR) | payer MEDICARE, OTHER, SELFPAY | END 2022-06-20 23:59 | disposition home or self-care (01) | LOC: SPT 06:00 | PROVIDERS: PCP Nurse Practitioner; Visit Provider Transplant Surgery | DX: M62.81 Muscle weakness (generalized) (principal); Z94.4 Liver transplant status | CPT/HCPCS: 97110 ==

== ENCOUNTER 2022-06-21 06:00 | Outpatient (RCR) | payer MEDICARE, OTHER, SELFPAY | END 2022-07-21 23:59 | disposition home or self-care (01) | LOC: SPT 06:00 | PROVIDERS: PCP Nurse Practitioner; Visit Provider Transplant Surgery | DX: R55 Syncope and collapse (principal) | CPT/HCPCS: 97110 ==

== ENCOUNTER 2022-07-22 06:00 | Outpatient (RCR) | payer MEDICARE, OTHER, SELFPAY | END 2022-08-20 23:59 | disposition home or self-care (01) | LOC: SPT 06:00 | PROVIDERS: PCP Nurse Practitioner; Visit Provider Transplant Surgery | DX: R55 Syncope and collapse (principal) | CPT/HCPCS: 97110; 97164 ==

== ENCOUNTER 2022-08-21 06:00 | Outpatient (RCR) | payer MEDICARE, OTHER, SELFPAY | END 2022-09-20 23:59 | disposition home or self-care (01) | LOC: SPT 06:00 | PROVIDERS: PCP Nurse Practitioner; Visit Provider Transplant Surgery | DX: R55 Syncope and collapse (principal) | CPT/HCPCS: 97110 ==

== ENCOUNTER → 2023-05-01 10:07 | Outpatient (BNVA) | payer MEDICARE, OTHER, SELFPAY | PROVIDERS: PCP Nurse Practitioner; Visit Provider Dermatology | DX: L72.0 Epidermal cyst (principal); L82.1 Other seborrheic keratosis; D18.01 Hemangioma of skin and subcutaneous tissue; D69.2 Other nonthrombocytopenic purpura; L81.8 Other specified disorders of pigmentation; Z92.25 Personal history of immunosuppression therapy; L57.0 Actinic keratosis | CPT/HCPCS: 17000; 99213 ==

== ENCOUNTER → 2023-07-21 12:54 | Outpatient (BNVA) | payer MEDICARE, OTHER, SELFPAY | PROVIDERS: PCP Nurse Practitioner; Visit Provider Student in an Organized Health Care Education/Training Program | DX: M65.311 Trigger thumb, right thumb; R20.0 Anesthesia of skin; R20.2 Paresthesia of skin | CPT/HCPCS: 73130; 99214 ==

== ENCOUNTER → 2023-08-06 14:01 | Outpatient (BNVA) | payer MEDICARE, OTHER, SELFPAY | PROVIDERS: PCP Nurse Practitioner; Visit Provider Orthopaedic Surgery | DX: M54.2 Cervicalgia (principal); Z98.1 Arthrodesis status | CPT/HCPCS: 72050; 99204 ==

== ENCOUNTER 2023-09-10 08:34 | Outpatient (CLI) | payer MEDICARE, OTHER, SELFPAY ==
--- NOTE | 2023-09-10 08:45 | MR_ITS ---
WS: [id number] MRI CERVICAL SPINE NONCONTRAST HISTORY: cervical pain COMPARISON: Radiograph 08/06/2023 Technique: Multiplanar, multisequence noncontrast imaging of the cervical spine. Prior anterior cervical fusion from C4-C6. Straightening of the normal cervical lordosis. Advanced degenerative disc disease with loss of height and osteophytosis throughout the cervical spine. No signal abnormality within the cervical cord. Craniocervical junction, C1 and C2 relationship, odontoid process and soft tissues are normal. C2-C3: Diffuse annular disc bulging and osteophytic ridging. No stenosis. C3-C4: Osteophytic ridging encroaching upon the ventral thecal sac. Mild facet arthritis. Very mild L EFT foraminal narrowing. Mild central stenosis. C4-C5: Small LEFT foraminal osteophyte with only mild narrowing. C5-C6: Mild annular disc bulge and osteophytic ridging. Mild bilateral foraminal stenosis, RIGHT grea ter than LEFT due to an osteophyte. C6-C7: Small disc osteophyte proximal LEFT foramen causing a moderate stenosis. Very mild central can al stenosis. C7-T1: Facet joint arthritis encroaching into the posterior lateral thecal sac. Mild bilateral forami nal narrowing. T1-T2: Mild annular disc bulging. Paraspinal soft tissue are normal. IMPRESSION: 1. Prior anterior cervical fusion from C4-C6. 2. C3-4: Mild central and LEFT foraminal stenosis due to disc osteophyte disease and facet arthritis. 3. C4-5: Very small LEFT foraminal osteophyte. 4. C5-6: Mild bilateral foraminal stenosis, RIGHT greater than LEFT. 5. C6-7: Small disc osteophyte proximal LEFT foramen causing moderate stenosis. Mild central stenosis . 6. Mild bilateral foraminal stenosis at C7-T1.
== END 2023-09-10 08:35 | disposition home or self-care (01) ==
LOC: RAD 08:34
PROVIDERS: PCP Physician Assistant; Visit Provider Orthopaedic Surgery
DX: M48.02 Spinal stenosis, cervical region (principal); M25.78 Osteophyte, vertebrae; M48.03 Spinal stenosis, cervicothoracic region; M54.2 Cervicalgia; Z98.1 Arthrodesis status
CPT/HCPCS: 72141

== ENCOUNTER → 2023-09-17 10:30 | Outpatient (BNVA) | payer MEDICARE, OTHER, SELFPAY | PROVIDERS: PCP Physician Assistant; Visit Provider Physician Assistant | DX: M47.812 Spondylosis without myelopathy or radiculopathy, cervical region; M50.30 Other cervical disc degeneration, unspecified cervical region; Z98.1 Arthrodesis status | CPT/HCPCS: 99213 ==

== ENCOUNTER → 2023-11-23 13:26 | Outpatient (BNVA) | payer MEDICARE, OTHER, SELFPAY | PROVIDERS: PCP Physician Assistant; Visit Provider Podiatrist Foot & Ankle Surgery | DX: M72.2 Plantar fascial fibromatosis; G57.91 Unspecified mononeuropathy of right lower limb | CPT/HCPCS: 20550; 73630; 99203; J1100; J3301; J3490 ==

== ENCOUNTER → 2023-11-25 10:14 | Outpatient (BNVA) | payer MEDICARE, OTHER, SELFPAY | PROVIDERS: PCP Physician Assistant; Referring Provider Physician Assistant; Visit Provider Anesthesiology Pain Medicine | DX: M50.30 Other cervical disc degeneration, unspecified cervical region; Z98.1 Arthrodesis status; M47.812 Spondylosis without myelopathy or radiculopathy, cervical region; M79.18 Myalgia, other site | CPT/HCPCS: 99204 ==

== ENCOUNTER → 2023-12-09 14:24 | Outpatient (BNVA) | payer MEDICARE, OTHER, SELFPAY | PROVIDERS: PCP Physician Assistant; Visit Provider Anesthesiology Pain Medicine | DX: M79.18 Myalgia, other site (principal); M54.9 Dorsalgia, unspecified; M50.30 Other cervical disc degeneration, unspecified cervical region; Z98.1 Arthrodesis status; M47.812 Spondylosis without myelopathy or radiculopathy, cervical region | CPT/HCPCS: 20553; 99213; J1030; J3490 ==

== ENCOUNTER → 2023-12-21 12:58 | Outpatient (BNVA) | payer MEDICARE, OTHER, SELFPAY | PROVIDERS: PCP Physician Assistant; Visit Provider Podiatrist Foot & Ankle Surgery | DX: M72.2 Plantar fascial fibromatosis (principal); G57.91 Unspecified mononeuropathy of right lower limb | CPT/HCPCS: 99213 ==

== ENCOUNTER 2024-03-01 06:00 | Outpatient (RCR) | payer MEDICARE, OTHER, SELFPAY | END 2024-03-20 23:59 | disposition home or self-care (01) | LOC: SPT 06:00 | PROVIDERS: Visit Provider Chiropractor | DX: M54.50 Low back pain, unspecified (principal) | CPT/HCPCS: 97110; 97162 ==

== ENCOUNTER → 2024-03-10 11:11 | Outpatient (BNVA) | payer MEDICARE, OTHER, SELFPAY | PROVIDERS: Visit Provider Anesthesiology Pain Medicine | DX: M79.18 Myalgia, other site (principal); M50.30 Other cervical disc degeneration, unspecified cervical region; Z98.1 Arthrodesis status; M47.812 Spondylosis without myelopathy or radiculopathy, cervical region | CPT/HCPCS: 20553; 99214; J1010; J3490 ==

== ENCOUNTER → 2024-03-20 17:01 | Outpatient (BNVA) | payer MEDICARE, OTHER, SELFPAY | PROVIDERS: Visit Provider Emergency Medicine | DX: U07.1 COVID-19 (principal); D84.9 Immunodeficiency, unspecified; Z20.822 Contact with and (suspected) exposure to COVID-19; Z94.4 Liver transplant status | CPT/HCPCS: 87426 ==

== ENCOUNTER 2024-03-21 06:00 | Outpatient (RCR) | payer MEDICARE, OTHER, SELFPAY | END 2024-04-20 23:59 | disposition home or self-care (01) | LOC: SPT 06:00 | PROVIDERS: Visit Provider Chiropractor | DX: M54.50 Low back pain, unspecified (principal) | CPT/HCPCS: 97110 ==

== ENCOUNTER 2024-04-21 06:00 | Outpatient (RCR) | payer MEDICARE, OTHER, SELFPAY | END 2024-05-21 23:59 | disposition home or self-care (01) | LOC: SPT 06:00 | PROVIDERS: Visit Provider Chiropractor | DX: M54.50 Low back pain, unspecified (principal) | CPT/HCPCS: 97110 ==

== ENCOUNTER 2024-05-09 10:50 | Outpatient (CLI) | payer MEDICARE, OTHER, SELFPAY ==
--- NOTE | 2024-05-09 11:03 | MR_ITS ---
WS: [id number] MRI LUMBAR SPINE NONCONTRAST TECHNIQUE: Sagittal T1, T2 and STIR imaging. Axial T1 and T2 imaging. CLINICAL INFORMATION: MYELOPATHY COMPARISON: None. FINDINGS: Mild lumbar curve. No acute compression. Slight anterolisthesis L4 on L5. Disc bulging worse at L3-L4 L4-L5. L1-L2: Mild annular bulging. Mild facet arthropathy. Small LEFT foraminal protrusion with mild LEFT f oraminal narrowing. L2-L3: Mild annular bulging. Mild facet arthropathy. Mild LEFT foraminal narrowing. Spinal canal is p atent. L3-L4: Mild annular bulging with mild central canal stenosis. Slight impingement of the subarticular recess bilaterally. Moderate facet arthropathy. Mild bilateral foraminal narrowing. L4-L5: Slight anterolisthesis. Mild annular bulging with impingement on the LEFT subarticular recess and traversing LEFT L5 nerve root. LEFT foraminal protrusion with moderate LEFT foraminal narrowing. Moderate facet arthropathy. L5-S1: Mild annular bulging with endplate ridging. Moderate facet arthropathy with small facet effusi ons. Foramen are patent. Visualized pelvic bony structures: Normal. Paravertebral soft tissues: Normal. MR/MR lumbar spine wo con* [id number] IMPRESSION: 1. Mild lumbar curve. No acute compression. Slight anterolisthesis L4 on L5 wi th endplate degenerative changes. 2. Mild central canal stenosis L4-5 with impingement on the LEFT subarticular recess and traversing LEFT L5 nerve root. 3. Moderate LEFT L4-5 foraminal narrowing impinges the exiting LEFT L4 nerve r oot. 4. Mild central canal stenosis L3-4 with impingement on the subarticular reces s bilaterally. Mild bilateral foraminal narrowing. 5. Moderate facet arthropathy L3-L4 L4-L5 and L5-S1.
== END 2024-05-09 10:51 | disposition home or self-care (01) ==
LOC: RAD 10:52
PROVIDERS: PCP Physician Assistant; Visit Provider Physician Assistant
DX: M48.061 Spinal stenosis, lumbar region without neurogenic claudication (principal); M99.63 Osseous and subluxation stenosis of intervertebral foramina of lumbar region; M47.896 Other spondylosis, lumbar region
CPT/HCPCS: 72148

== ENCOUNTER → 2024-05-31 13:20 | Outpatient (BNVA) | payer MEDICARE, OTHER, SELFPAY | PROVIDERS: PCP Physician Assistant; Visit Provider Nurse Practitioner Family | DX: L82.1 Other seborrheic keratosis (principal); D18.01 Hemangioma of skin and subcutaneous tissue; L81.4 Other melanin hyperpigmentation; D69.2 Other nonthrombocytopenic purpura; L81.8 Other specified disorders of pigmentation; L81.1 Chloasma; L57.0 Actinic keratosis; Z92.25 Personal history of immunosuppression therapy | CPT/HCPCS: 17000; 99213 ==

== ENCOUNTER → 2024-07-18 07:55 | Outpatient (BNVA) | payer MEDICARE, OTHER, SELFPAY | PROVIDERS: PCP Physician Assistant; Visit Provider Podiatrist Foot & Ankle Surgery | DX: M72.2 Plantar fascial fibromatosis (principal) | CPT/HCPCS: 20550; J1100; J3301; J3490 ==

== ENCOUNTER → 2024-09-06 13:50 | Outpatient (BNVA) | payer MEDICARE, OTHER, SELFPAY | PROVIDERS: PCP Physician Assistant; Visit Provider Podiatrist Foot & Ankle Surgery | DX: M72.2 Plantar fascial fibromatosis (principal) | CPT/HCPCS: 99213 ==

== ENCOUNTER 2024-10-16 09:02 | Inpatient (IN) | payer MEDICARE, OTHER, SELFPAY ==
[2024-10-16] VITALS (19 sets, daily range): BP systolic 95–115; BP diastolic 56–68; PULSE 68–128; RESP 16–174; TEMP 36.5–37.2; O2SAT 89–96; BMI 25.4; BMI 27.3
--- NOTE | 2024-10-16 09:17 | ECG_ITS ---
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 Measurements Intervals [place] Rate: 113 P: 30 AK: 173 QRS: 3 QRSD: 80 T: 43 QT: 303 QTc: 416 Interpretive Statements SINUS TACHYCARDIA POSSIBLE LEFT ATRIAL ENLARGEMENT [-0.1mV P-WAVE IN V1/V2] Compared to ECG 06/02/2021 02:12:38 Sinus rhythm no longer present Myocardial infarct finding no longer present Electronically Signed On 10-22-2024 13:26:27 [employer]PER[employer] by Kavon Koehler M.D. [id number]
--- NOTE | 2024-10-16 09:18 | XRR_ITS ---
PROCEDURE INFORMATION: Exam: XR Chest Exam date and time: 10/16/2024 9:35 AM Age: 74 years old Clinical indication: Dyspnea TECHNIQUE: Imaging protocol: Radiologic exam of the chest. Views: 1 view. COMPARISON: CR XR chest 2V* [id number] 09/17/2021 4:12 PM FINDINGS: Lungs: Hypoinflation with bronchovascular crowding. Left retrocardiac and lower lobe opacity obscuring the left cardiac border. Streaky opacity at the right costophrenic angle. Pleural spaces: See Lungs finding. Heart/Mediastinum: Unremarkable. No cardiomegaly. Bones/joints: Status post ACDF of the lower cervical spine. Mild degenerative change of the thoracic spine with slight dextroconvex curvature. Soft tissues: Probable surgical material within the left breast. Intraperitoneal space: Surgical haim within the right upper quadrant. XR/XR chest 1V portable [id number] IMPRESSION: Left lingular and lower lobe consolidation.
[2024-10-16 09:42] LABS: Basophils % 0.1 %; Eosinophils # 0.1 10^3/uL (0.0-0.8); Eosinophils % 0.8 %; Hematocrit 36.1 % (36-47); Lymphocytes # 1.6 10^3/uL (0.8-4.8); Mean Corpuscular HGB Conc 33.2 g/dL (30-55); Mean Corpuscular Volume 87.2 fl (85-98); Mean Platelet Volume 8.9 fL (7.4-10.4); Monocytes # 1.2 10^3/uL (0.2-0.9); Monocytes % 8.1 %; Neutrophils # 11.53 10^3/uL (1.8-7.7); Neutrophils % 79.4 %; Nucleated Red Blood Cells % 0 %; Platelet Count 196 10^3/cmm (157-399); Red Blood Count 4.14 10^6/uL (3.85-5.65); Red Cell Distribution Width 13.4 % (12.1-15.1); White Blood Count 14.51 10^3/uL (3.29-11.43)
--- NOTE | 2024-10-16 09:58 | W.ED.SOB ---
HPI - SOB/Dyspnea General: Chief Complaint: Upper Respiratory Infection Stated Complaint: n/v, cough Time Seen by Provider: 10/16/24 09:19 History of Present Illness: HPI Narrative: 74-year-old female with a history of liver transplant for nonalcoholic cirrhosis 3 years ago who presents to the emergency department with 3 weeks of illness that she felt she was recovering from this week and then suddenly started getting worse over the last 24 hours. Patient explains that she takes tacrolimus as an immunosuppressant which puts her at risk of increased infection. Both her and her got sick 3 weeks ago with cough cold and flulike symptoms. She took a course of Augmentin from her primary care doctor and thought she was getting better until yesterday. She has decreased appetite, shortness of breath, generalized weakness, increased cough, sometimes with sputum production. She reports she has had her pneumonia vaccination. Associated symptoms: Reports chest congestion and lightheadedness; Deny chest pain, hemoptysis or palpitations Related Data Home Medications Medication Instructions Recorded Confirmed fluticasone propionate 50 1 spray intranasal BID PRN 06/07/20 10/16/24 mcg/actuation nasal allergies spray,suspension aspirin 325 mg tablet 325 mg PO QAM 10/16/22 10/16/24 buspirone 5 mg tablet 5 mg PO BID 10/16/22 10/16/24 calcium carbonate 500 mg PO BID 11/25/23 10/16/24 cetirizine 10 mg tablet 10 mg PO QAM 10/16/24 10/16/24 fluticasone furoate 100 1 inh inhalation .9AM 10/16/24 10/16/24 mcg-vilanterol 25 mcg/dose inhalation powder (Breo Ellipta) ipratropium 0.5 mg-albuterol 3 mg 3 ml inhalation Q4H PRN Shortness 10/16/24 10/16/24 (2.5 mg base)/3 mL nebulization Of Breath soln levothyroxine 50 mcg tablet 50 mcg PO QAM 10/16/24 10/16/24 melatonin 3 mg tablet 6 mg PO QPM 10/16/24 10/16/24 multivitamin 1 tab PO QAM 10/16/24 10/16/24 omeprazole 20 mg capsule,delayed 20 mg PO QAM 10/16/24 10/16/24 release sodium zirconium cyclosilicate 5 5 g PO DAILY 10/16/24 10/16/24 gram oral powder packet (Lokelma) tacrolimus 1 mg tablet,extended 1 mg PO QAM 10/16/24 10/16/24 release 24 hr (Envarsus XR) Previous Rx's Medication Instructions Recorded albuterol sulfate 90 mcg/actuation 2 puff inhalation Q6H PRN 09/22/19 aerosol inhaler (Ventolin HFA) shortness of breath or wheezing #8.5 grams montelukast 10 mg tablet 10 mg PO DAILY #90 tabs 11/30/19 Allergies Allergy/AdvReac Type Severity Reaction Status Date / Time No Known Allergies Allergy Verified 10/16/24 09:09 Review of Systems Const: Reports: chills, body aches, change in appetite, fatigue and malaise Card: Reports: lightheadedness and dyspnea on exertion; Denies: chest pain, palpitations or irregular heart rhythm Resp: Reports: dyspnea, productive cough, wheezing and chest congestion; Denies: pain on inspiration or hemoptysis Musc: Reports: other (body aches) [facility] ED PFSH: Medical History (Updated 10/16/24 @ 10:44 by Elio Franco MD) Mixed stress and urge urinary incontinence Hx of radiation therapy Chronic GERD Hyperlipidemia Chronic cystitis Environmental and seasonal allergies Hypertension Hypothalamic hypothyroidism Breast cancer, left Surgical History Hx of breast surgery History of cholecystectomy Laparoscopic 09/09/19 History of hysterectomy 1982 Family History Other CAD (coronary artery disease) Cancer Chronic kidney disease (CKD) Diabetes Hyperlipidemia Hypertension Psychiatric illness Social History Smoking and tobacco/nicotine status: never used tobacco/nicotine Second hand smoke exposure: Yes Alcohol intake: never Substance/Drug Use: never Adopted: No Caregiver/support person: No Lives independently: Yes Household members: spouse and children Housing: House Marital status: Number of children: 3 Number of grandchildren: 4 Current occupational status: retired Do you think of yourself as: Straight/Heterosexual Current gender identity: Female Physical Exam Const: COMMON NORMALS: no limitations, alert and well nourished EXAM LIMITATIONS: no altered mental status HENMT: COMMON NORMALS: normocephalic, atraumatic and external ears normal HEAD & SCALP: normocephalic and atraumatic EXTERNAL EAR: Yes external ears normal MOUTH: no muffled voice Eye: COMMON NORMALS: EOMs intact bilaterally, conjunctivae normal and no scleral icterus CONJUNCTIVA: Yes conjunctivae normal Neck/C-Spine: COMMON NORMALS: no JVD GENERAL: Yes normal visual inspection and Yes trachea midline Resp: OTHER: cough, tachypnea, rales, increased work of breathing Cardio: COMMON NORMALS: no JVD and regular rhythm RHYTHM: regular rhythm Extremity: COMMON NORMALS: normal to inspection Neuro: COMMON NORMALS: moves all extremities, no focal motor deficits and no sensory deficits noted SENSORIUM/ORIENTATION: Yes alert SPEECH: speech normal Psych: COMMON NORMALS: mental status grossly normal, Normal thought process present, cooperative, normal affect and speech normal SPEECH: Yes normal speech THOUGHT PROCESS: Normal thought process present Skin: COMMON NORMALS: no rashes or lesions noted, turgor normal and no jaundice GENERAL SKIN EXAM: no rashes or lesions noted and turgor normal Course Vital Signs: Vital signs: Vital Signs Temperature 99.0 F 10/16/24 09:09 Pulse Rate 99 10/16/24 10:33 Respiratory Rate 21 H 10/16/24 10:33 Blood Pressure 115/66 10/16/24 10:33 Pulse Oximetry 96 10/16/24 10:33 MDM - SOB/Dyspnea Medical Decision Making Patient presents with positive systemic inflammatory response syndrome along with suggestion of pneumonia based on history and physical exam. Sepsis protocol has been initiated. Patient's mean arterial pressure is 66 during the examination. She has risk factors including immunosuppression on tacrolimus. She has tachycardia, borderline hypotension, tachypnea, low-grade fever, and SpO2 ranging from 91 to 96% on room air with a history of obstructive lung disease and sleep apnea on CPAP. IV fluids, blood cultures, lactic acid, broad-spectrum antibiotics will be initiated. Chest x-ray shows infiltrate primarily in the left lower lung. Flu and COVID are pending. Pulmonary embolism lower on the differential diagnosis. Expect patient will require admission to the hospital. EKG obtained at 9:54 AM. EP interpretation. Sinus tachycardia, pulmonary P wave pattern suggesting left atrial enlargement, axis is borderline left, QRS duration 80 ms, no concerning ST segment elevations or depressions to suggest ischemia. Update 10:45 AM Patient's white blood cell count is elevated to 14.5, her BUN is elevated to 27 and her creatinine is up to 1.4. Both her sodium and chloride are low. The support clinical dehydration along with the physical exam and history. 2 L of IV fluid are being given. After 1 L of IV fluid, her heart rate has already improved and her blood pressure is already improved. Her lactic acid is within normal limits. Her COVID, flu, RSV PCR was negative for COVID and flu but positive for RSV. This must have been what caused the initial illness 3 weeks ago. I recommend that the patient be admitted overnight at least overnight for IV fluids, antibiotics, trending of vital signs. I have reached out to a hospitalist for admission. Lab Data 10/16/24 09:37 10/16/24 09:37 Labs/Radiology: Laboratory Results WBC 14.51 10^3/uL (3.29-11.43) H 10/16/24 09:37 RBC 4.14 10^6/uL (3.85-5.65) 10/16/24 09:37 Hgb 12.00 g/dL (11.27-16.99) 10/16/24 09:37 Hct 36.1 % (36-47) 10/16/24 09:37 MCV 87.2 fl (85-98) 10/16/24 09:37 MCH 29.0 pg (27-33) 10/16/24 09:37 MCHC 33.2 g/dL (30-55) 10/16/24 09:37 RDW 13.4 % (12.1-15.1) 10/16/24 09:37 Plt Count 196 10^3/cmm (157-399) 10/16/24 09:37 MPV 8.9 fL (7.4-10.4) 10/16/24 09:37 Neut % (Auto) 79.4 % 10/16/24 09:37 Lymph % (Auto) 11.0 % 10/16/24 09:37 Burke % (Auto) 8.1 % 10/16/24 09:37 Eos % (Auto) 0.8 % 10/16/24 09:37 Baso % (Auto) 0.1 % 10/16/24 09:37 Neut # (Auto) 11.53 10^3/uL (1.8-7.7) H 10/16/24 09:37 Lymph # (Auto) 1.6 10^3/uL (0.8-4.8) 10/16/24 09:37 Burke # (Auto) 1.2 10^3/uL (0.2-0.9) H 10/16/24 09:37 Eos # (Auto) 0.1 10^3/uL (0.0-0.8) 10/16/24 09:37 Baso # (Auto) 0.0 10^3/uL (0.0-0.1) 10/16/24 09:37 Nucleated RBC % (auto) 0 % 10/16/24 09:37 Nucleated RBCs # 0.0 /100WBC 10/16/24 09:37 Sodium 131 mmol/L (136-145) L 10/16/24 09:37 Potassium 4.1 mmol/L (3.5-5.1) 10/16/24 09:37 Chloride 96 mmol/L (98-107) L 10/16/24 09:37 Carbon Dioxide 23 mmol/L (22-29) 10/16/24 09:37 Anion Gap 16.1 (5-19) 10/16/24 09:37 BUN 27 mg/dL (8-23) H 10/16/24 09:37 Creatinine 1.4 mg/dL (0.5-0.9) H 10/16/24 09:37 GFR Calculation Not Reportable 10/16/24 09:37 Glucose 109 mg/dL (65-115) 10/16/24 09:37 Calculated Osmolality 278 mOsm/kg (285-295) L 10/16/24 09:37 Lactic Acid 1.1 mmol/L (0.5-2.2) 10/16/24 09:37 Calcium 9.0 mg/dL (8.5-10.5) 10/16/24 09:37 Magnesium 1.3 mg/dL (1.7-2.3) L 10/16/24 09:37 Total Bilirubin 0.7 mg/dL (0.15-1.2) 10/16/24 09:37 AST 24 U/L (0-32) 10/16/24 09:37 ALT 18 U/L (0-33) 10/16/24 09:37 Alkaline Phosphatase 69 U/L (35-105) 10/16/24 09:37 Total Protein 6.7 g/dL (6.6-8.7) 10/16/24 09:37 Albumin 3.5 g/dL (3.5-5.2) 10/16/24 09:37 Globulin 3.2 g/dL (1.3-4.6) 10/16/24 09:37 Coronavirus (PCR) Negative (Negative) 10/16/24 09:22 Influenza A (PCR) Negative (Negative) 10/16/24 09:22 Influenza Type B (PCR) Negative (Negative) 10/16/24 09:22 RSV (PCR) Positive (Negative) A 10/16/24 09:22 XR interpretation done by ED provider, pending radiology final review Discharge Plan Discharge Patient Disposition: Placed in Observation Clinical Impression: Community acquired pneumonia, Sepsis, Acute dehydration, Hypomagnesemia, Acquired immunocompromised state Condition: Stable Prescriptions: No Action montelukast 10 mg tablet 10 mg PO DAILY Qty: 90 3RF albuterol sulfate [Ventolin HFA] 90 mcg/actuation HFA aerosol inhaler 2 puff INHALATION Q6H MDD 8 puffs PRN (Reason: shortness of breath or wheezing) Qty: 8.5 3RF fluticasone propionate 50 mcg/actuation spray,suspension 1 spray INTRANASAL BID PRN (Reason: allergies) Rx Instructions: administer into each nostril buspirone 5 mg tablet 5 mg PO BID aspirin 325 mg tablet 325 mg PO QAM calcium carbonate 500 mg calcium (1,250 mg) tablet 500 mg PO BID multivitamin Tablet 1 tab PO QAM ipratropium-albuterol [DuoNeb] 0.5 mg-3 mg(2.5 mg base)/3 mL Solution For Nebulization 3 ml INHALATION Q4H PRN (Reason: Shortness Of Breath) cetirizine 10 mg tablet 10 mg PO QAM melatonin 3 mg Tablet 6 mg PO QPM levothyroxine 50 mcg tablet 50 mcg PO QAM fluticasone furoate-vilanterol [Breo Ellipta] 100-25 mcg/dose blister with device 1 inh INHALATION .9AM Envarsus XR 1 mg Tablet Extended Release 24 Hr 1 mg PO QAM Rx Instructions: must be taken on empty stomach Lokelma 5 gram Powder In Packet 5 g PO DAILY omeprazole 20 mg capsule,delayed release(DR/EC) 20 mg PO QAM Referrals: Julia Ortiz PA [Primary Care Provider] - Coding Level of Care Code [employer] Consultant for Jessica Boyd
[2024-10-16 10:01] LABS: Covid PCR NEGATIVE (Negative); Influenza A NEGATIVE (Negative); Influenza B NEGATIVE (Negative)
[2024-10-16] MEDS: ondansetron 2 mg/ML SDV 2 mL 4 MG IVP (10:06)
[2024-10-16] MEDS: sodium chloride 0.9% 1,000 ML 999 ML IV ×2 (10:06→11:13)
[2024-10-16 10:07] LABS: Alanine Aminotransferase 18 U/L (0-33); Albumin Level 3.5 g/dL (3.5-5.2); Alkaline Phosphatase 69 U/L (35-105); Anion Gap 16.1 (5-19); Aspartate Amino Transferase 24 U/L (0-32); Blood Urea Nitrogen 27 mg/dL (8-23); Carbon Dioxide 23 mmol/L (22-29); Chloride 96 mmol/L (98-107); Creatinine Clr Calc Pharmacy 27.8918; Globulin 3.2 g/dL (1.3-4.6); Glucose 109 mg/dL (65-115); Magnesium 1.3 mg/dL (1.7-2.3); Osmolality Calculated 278 mOsm/kg (285-295); Potassium 4.1 mmol/L (3.5-5.1); Sodium 131 mmol/L (136-145); Total Bilirubin 0.7 mg/dL (0.15-1.2); Total Protein 6.7 g/dL (6.6-8.7)
[2024-10-16 10:08] LABS: Lactic Sepsis W/Reflex 1.1 mmol/L (0.5-2.2)
[2024-10-16 10:17] LABS: Respiratory Syncytial Virus Ce POSITIVE (Negative)
[2024-10-16] MEDS: piperacillin-tazobactam 3.375 GM in sodium chloride 0.9% (plus) 50 ML IV ×2 (10:17→17:46)
--- NOTE | 2024-10-16 10:32 | PC.PHAR ---
Pt is a transplant and has a current med list and medications with her. Updated on pts' chart
--- NOTE | 2024-10-16 11:07 | CTR_ITS ---
PROCEDURE INFORMATION: Exam: CTA Chest With Contrast Exam date and time: 10/16/2024 11:23 AM Age: 74 years old Clinical indication: Shortness of breath; Additional info: SOB TECHNIQUE: Imaging protocol: Computed tomographic angiography of the chest with contrast. Exam focused on the arteries. 3D rendering (Not supervised by radiologist): MIP and/or 3D reconstructed images were created by the technologist. Radiation optimization: All CT scans at this facility use at least one of these dose optimization techniques: automated exposure control; mA and/or kV adjustment per patient size (includes targeted exams where dose is matched to clinical indication); or iterative reconstruction. Contrast material: OMNI 350; Contrast volume: 60 ml; Contrast route: INTRAVENOUS (IV); COMPARISON: CR (CHEST, ) 10/16/2024 9:35 AM RADIATION DOSE METRICS: Total DLP (mGy-cm): 243.7 FINDINGS: Tubes, catheters and devices: Nonspecific surgical material at the right upper quadrant. Pulmonary arteries: Contrast in the main pulmonary artery only measures 170 Hounsfield units. Ideally, for the exclusion of pulmonary emboli, contrast should measure 250 Hounsfield units or greater. No definite filling defects are appreciated in the main pulmonary artery, proximal right pulmonary artery, or proximal left pulmonary artery. Aorta: Unremarkable. No aortic aneurysm. No aortic dissection. Thyroid: Prominent right thyroid lobe. Lungs: Consolidation within the left lingula with air bronchograms and patchy opacities within the left lower lobe with bronchial wall thickening. Scattered patchy opacities within the right lower lobe. Pleural spaces: Unremarkable. No pneumothorax. No pleural effusion. Heart: Unremarkable. No cardiomegaly. No pericardial effusion. Lymph nodes: Scattered prominent mediastinal lymph nodes largest of which is precarinal and measures 9 mm in short axis. Left calcified hilar nodes. Prominent right hilar lymph node measuring 1.3 cm. Liver: Mild nodularity of the liver with left hepatic lobe hypertrophy suggestive of cirrhosis. Gallbladder and biliary ducts: Status post cholecystectomy. Mild associated intrahepatic ductal dilatation. Spleen: Splenic granulomas. Adrenal glands: Query right adrenalectomy. Bones/joints: Unremarkable. No acute fracture. Soft tissues: Unremarkable. CT/CT angio chest PE protcl [id number] IMPRESSION: 1. No large pulmonary embolism. 2. Left lingular consolidation. Patchy opacities within the bilateral bases, [id number] likely representing multifocal pneumonia. 3. Other chronic findings as above.
[2024-10-16] MEDS: magnesium sulfate premix 2 GM/50 ML PIGGYBACK IV (11:12)
--- NOTE | 2024-10-16 11:12 | P.HP_ITS ---
Providers/Chief Complaint 2 Primary Care Provider: Julia Ortiz Chief Complaint: n/v, cough History of Present Illness Vanessa Stewart is a 74 year old female with a past medical history of liver transplant 3 years ago for READ, on tacrolimus, follows up with her packager machine at [facility] every 6 months, history of asthma, hyperlipidemia, history of pulmonary embolism not on anticoagulation therapy associate with COVID, history of right lower extremity DVT off anticoagulant therapy, who presents for shortness of breath, cough, fatigue, malaise, chills. Patient tells me that she has chronic shortness of breath, her tobacco stemmer Dr. King has referred her to cardiology for further evaluation, she has had multiple stress test which have been within normal limits. She is supposed to follow-up with cardiology. She tells me that for the last 3 weeks she has been sick, she saw her primary care provider was given a shot of steroids but continues to have worsening shortness of breath, fatigue, malaise, cough, shortness of breath with exertion. This morning she had fatigue, malaise, feeling unwell, lightheadedness no chest pain, no palpitations, no abdominal pain, does have a poor appetite so she presented to [facility] for evaluation Review of Systems 2 Const: Reports: chills, fatigue and malaise; Denies: fever(s) Card: Denies: chest pain Resp: Reports: dyspnea GI: Reports: nausea; Denies: abdominal pain or vomiting Medications/Allergies Home Medications Medication Instructions Recorded Confirmed Last Taken Type albuterol sulfate 90 mcg/actuation 2 puff inhalation Q6H PRN 09/22/19 10/16/24 Unknown Rx aerosol inhaler (Ventolin HFA) shortness of breath or wheezing #8.5 grams montelukast 10 mg tablet 10 mg PO DAILY #90 tabs 11/30/19 10/16/24 10/15/24 Rx fluticasone propionate 50 1 spray intranasal BID PRN 06/07/20 10/16/24 Unknown History mcg/actuation nasal allergies spray,suspension aspirin 325 mg tablet 325 mg PO QAM 10/16/22 10/16/24 10/15/24 History buspirone 5 mg tablet 5 mg PO BID 10/16/22 10/16/24 10/15/24 History calcium carbonate 500 mg PO BID 11/25/23 10/16/24 10/15/24 History cetirizine 10 mg tablet 10 mg PO QAM 10/16/24 10/16/24 10/15/24 History fluticasone furoate 100 1 inh inhalation .9AM 10/16/24 10/16/24 10/15/24 History mcg-vilanterol 25 mcg/dose inhalation powder (Breo Ellipta) ipratropium 0.5 mg-albuterol 3 mg 3 ml inhalation Q4H PRN Shortness 10/16/24 10/16/24 Unknown History (2.5 mg base)/3 mL nebulization Of Breath soln levothyroxine 50 mcg tablet 50 mcg PO QAM 10/16/24 10/16/24 10/15/24 History melatonin 3 mg tablet 6 mg PO QPM 10/16/24 10/16/24 10/15/24 History multivitamin 1 tab PO QAM 10/16/24 10/16/24 10/15/24 History omeprazole 20 mg capsule,delayed 20 mg PO QAM 10/16/24 10/16/24 10/15/24 History release sodium zirconium cyclosilicate 5 5 g PO DAILY 10/16/24 10/16/24 10/15/24 History gram oral powder packet (Lokelma) tacrolimus 1 mg tablet,extended 1 mg PO QAM 10/16/24 10/16/24 10/15/24 History release 24 hr (Envarsus XR) Allergies Allergy/AdvReac Type Severity Reaction Status Date / Time No Known Allergies Allergy Verified 10/16/24 09:09 PFSH Acute 2 PFSH: Medical History (Updated 10/16/24 @ 11:17 by Elvis Benitez MD) Mixed stress and urge urinary incontinence Hx of radiation therapy Chronic GERD Hyperlipidemia Chronic cystitis Environmental and seasonal allergies Hypertension Hypothalamic hypothyroidism Breast cancer, left Surgical History Hx of breast surgery History of cholecystectomy Laparoscopic 09/09/19 History of hysterectomy 1982 Family History Other CAD (coronary artery disease) Cancer Chronic kidney disease (CKD) Diabetes Hyperlipidemia Hypertension Psychiatric illness Social History Smoking and tobacco/nicotine status: never used tobacco/nicotine Second hand smoke exposure: Yes Alcohol intake: never Substance/Drug Use: never Adopted: No Caregiver/support person: No Lives independently: Yes Household members: spouse and children Housing: House Marital status: Number of children: 3 Number of grandchildren: 4 Current occupational status: retired Do you think of yourself as: Straight/Heterosexual Current gender identity: Female Vitals/I&O/Wt Last Vital Signs Temp 99.0 F 10/16/24 09:09 Pulse 105 H 10/16/24 11:05 Resp 18 10/16/24 11:05 BP 111/61 10/16/24 11:05 Pulse Ox 90 10/16/24 11:05 10/15/24 10/16/24 10/16/24 22:59 06:59 14:59 Intake Total 0 / 0 Balance 0 / 0 Weight last 48 hrs Weight 58.967 kg Physical Exam 2 Const: COMMON NORMALS: no acute distress and patient oriented x3 HENMT: COMMON NORMALS: normocephalic HEAD & SCALP: normocephalic Eye: COMMON NORMALS: Equal, round and reactive pupils present and EOMs intact bilaterally Neck/C-Spine: COMMON NORMALS: no JVD Lymph: LYMPHATIC: no lymphadenopathy noted Resp: EFFORT & INSPECTION: Yes symmetric chest movement, Yes tachypneic, Yes Actively coughing, Yes retractions and Yes uses accessory muscles A USCULTATION: crackles OTHER: Tachypnea, sob with a few words, mild to moderate respiratory distress Cardio: COMMON NORMALS: no JVD, regular rhythm, S1 normal heart sound present and S2 normal heart sound present RATE: tachycardic RHYTHM: regular rhythm HEART SOUNDS: S1 normal heart sound present and S2 normal heart sound present GI: COMMON NORMALS: Normal to inspection, nondistended, normoactive bowel sounds present, Soft to palpation and non-tender PALPATION: Yes No hepatosplenomegaly present Extremity: COMMON NORMALS: no calf tenderness and no pedal edema Neuro: COMMON NORMALS: patient oriented x3, CN's II-XII intact bilaterally and moves all extremities Psych: COMMON NORMALS: mental status grossly normal Sepsis: Is patient septic: Yes Focused sepsis exam performed: Yes F ocused sepsis exam: No mottling lower extremities, Date exam was performed: 10/16/24 Time exam was performed: 11:16 Data 10/16/24 09:37 10/16/24 09:37 Micro: Microbiology 10/16/24 10:06 Blood Culture - Preliminary Blood SPECIMEN COLLECTED 10/16/24 10:04 Blood Culture - Preliminary Blood SPECIMEN COLLECTED A&P Assessment and plan (1) Acute hypoxic respiratory failure: (2) RSV infection: (3) Sepsis: (4) Pneumonia: (5) Hyponatremia: (6) JAMES (acute kidney injury): (7) Hypomagnesemia: Plan Acute hypoxic respiratory failure -Secondary to pneumonia -Secondary to RSV Plan -Monitor respiratory status closely -Order ABG -CT angiogram the chest -Solu-Medrol 125 mg -DuoNeb -Budesonide -Vancomycin -Zosyn -Blood culture -Sputum culture History of chronic shortness of breath -Troponin series ordered -Will order cardiac echo based on clinical progress Sepsis -Sepsis features met given source of infection pneumonia, RSV, tachycardia, tachypnea, leukocytosis and limited kidney function Acute kidney injury -IV fluids Hyponatremia -Status post IV fluids History of immunocompromise state with liver transplant History of READ, history of liver transplant -Continue tacrolimus -Check Tac level History of DVT and PE secondary to COVID, surgery -Off anticoagulation Full code Protonix for GI prophylaxis Lovenox for DVT prophylaxis Attestations 2 Medical Necessity Statement*: Patient requires hospitalization, inpatient, greater than 2 midnights for acute hypoxic respiratory failure secondary to pneumonia, sepsis, RSV, JAMES, hyponatremia Diagnoses Acute hypoxic respiratory failure J96.01 RSV infection B33.8 Sepsis A41.9 Pneumonia J18.9 Hyponatremia E87.1 JAMSE (acute kidney injury) N17.9 Hypomagnesemia E83.42
[2024-10-16 11:14] LABS: C Reactive Protein 34.8 mg/L (0.0-4.9)
[2024-10-16 11:20] LABS: Procalcitonin 0.44 ng/mL (0-0.5)
[2024-10-16 11:25] LABS: Troponin(5th) Baseline 21 ng/L (0-10)
[2024-10-16 11:28] LABS: Estmated Average Glucose 103; Hemoglobin A1C 5.2 % (4.0-6.0)
[2024-10-16] MEDS: iohexol 350 mg/mL 500 mL Btl (per mL) IV (11:30)
--- NOTE | 2024-10-16 11:34 | ECG_ITS ---
[facility]24[facility] Pat Name: Vanessa Stewart Department: Room: Gender: Female Website Admin: : 1950 Requested By: Elvis Benitez Order Number: [id number] Radha MD: Kavon Koehler M.D. Measurements Intervals [place] Rate: 105 P: 40 OR: 172 QRS: 11 QRSD: 67 T: 52 QT: 311 QTc: 411 Interpretive Statements SINUS TACHYCARDIA LOW QRS VOLTAGE IN PRECORDIAL LEADS [QRS DEFLECTION < 1.0 mV IN CHEST LEADS] Compared to ECG 10/16/2024 09:54:13 Low QRS voltage now present Electronically Signed On 10-22-2024 13:25:50 ARCHITECTURAL JOB CAPTAIN by Kavon Koehler M.D. [email or web address]
[2024-10-16 11:36] LABS: NT Pro B Type Natriuretic Pept 460 pg/mL (0-450)
[2024-10-16 11:41] LABS: ABG PCO2 26.4 mmHg (35-45); ABG PH Result 7.48 (7.35-7.45); Arterial Blood Gas Hematocrit 33.6 % (37-47); Base Excess ABG -2.7 mmol/L (-2.0-2.0); Blood Gas Allen Test Pos; Blood Gas Operator Identificat MONRO; Blood Gas Sample Site Radial, left; Blood Gas Sample Type Arterial; HCO3 ABG 19.7 mmol/L (22-26); Oxygen Device ROOM AIR; PO2 ABG 61.4 mmHg (80.0-100.0); PO2 FiO2 Ratio Arterial Blood 292
[2024-10-16 12:06] LABS: Troponin 5 2HR 18.47 ng/L (0-10)
[2024-10-16 12:07] LABS: Troponin 5 2HR Delta -2.53 ABS# (0-10)
--- NOTE | 2024-10-16 12:44 | ECG_ITS ---
[employer] [facility] Test Date: 2024-10-16 Pat Name: Vanessa Stewart Department: Room: EDIP Gender: Female [place]: : 1950 Requested By: Elvis Benitez Order Number: [id number] Reading MD: Kavon Koehler M.D. Measurements Intervals [place] Rate: 95 P: 37 OR: 194 QRS: -8 QRSD: 87 T: 47 QT: 340 QTc: 429 Interpretive Statements SINUS RHYTHM WITH OCCASIONAL ECTOPIC PREMATURE COMPLEXES LOW QRS VOLTAGE IN PRECORDIAL LEADS [QRS DEFLECTION < 1.0 mV IN CHEST LEADS] Compared to ECG 10/16/2024 11:34:19 Sinus tachycardia no longer present Electronically Signed On 10-22-2024 13:59:59 VICE PRESIDENT OF BUSINESS DEVELOPMENT by Kavon Koehler M.D. [email or web address]
--- NOTE | 2024-10-16 12:44 | PC.NURSE ---
Pts SPO2 was 86, placed pt on 2L nasal cannula.
[2024-10-16] MEDS: vancomycin 1,250 MG/250 ML PIGGYBACK 166.67 MG IV (12:51)
--- NOTE | 2024-10-16 15:57 | USCV_ITS ---
Vanessa Stewart Age: 74 Gender: F : 1950 Exam Date: 10/16/2024 19:39 Ordering Phys: Elvis Benitez MD Technologist: Arpit Rea Exam Location: [facility] [place] Indication: nstemi BP: 100 / 56 HR: 68 Rhythm: Sinus Technical Quality: Adequate MEASUREMENTS (Male / Female) Normal Values 2D ECHO LV Diastolic Diameter PLAX 4.5 cm 4.2 - 5.9 / 3.9 - 5.3 cm IVS Diastolic Thickness 0.8 cm 0.6 - 1.0 / 0.6 - 0.9 cm IVS Systolic Thickness 1.3 cm LVPW Diastolic Thickness 1.3 cm 0.6 - 1.0 / 0.6 - 0.9 cm LVPW Systolic Thickness 1.3 cm LVOT Diameter 2.0 cm LV Ejection Fraction 2D Teich 72.6 % LV Ejection Fraction MOD 4C 65.8 % LV Ejection Fraction MOD 2C 71.9 % LV Ejection Fraction 2C AL 74.3 % LA Diameter 3.0 cm RA Systolic Volume 4C AL 21.1 ml RA Systolic Volume 4C MOD 21.0 ml LA Sys Volume AL 34.4 cm cubed LA Sys Volume Index AL 20.8 cm cubed/m squared Aorta at Sinotubular Diameter 2.1 cm IVC Diameter 1.4 cm M-MODE LA Ao Ratio MM 1.0 AV Cusp Separation MM 1.9 cm DOPPLER AV Peak Velocity 133.0 cm/s AV Area Cont Eq vti 2.0 cm squared AV Area Cont Eq pk 2.6 cm squared MV Peak Velocity 117.0 cm/s MV Area PHT 4.5 cm squared Mitral E to A Ratio 1.0 TV Peak Velocity 251.5 cm/s TR Peak Velocity 257.0 cm/s TR Peak Gradient 26.4 mmHg TR Mean Velocity 193.0 cm/s TR Mean Gradient 16.4 mmHg TR Velocity Time Integral 71.8 cm PV Peak Velocity 102.3 cm/s RV Ejection Time 0.4 s FINDINGS Left Ventricle Left ventricle is normal in size. LV systolic function is normal with EF of 60-65%. No regional wall motion abnormalities are seen. Right Ventricle Normal in size and function Right Atrium Normal in size. Left Atrium Normal in size. Mitral Valve Mild mitral annular calcification. Mitral mitral regurgitation. Aortic Valve Aortic valve is thickened. No significant stenosis or regurgitation. Tricuspid Valve Mild tricuspid regurgitation. Insufficient TR jet to calculate RVSP Pulmonic Valve Not well visualized Pericardium Normal Aorta Normal in size IVC Appears to be normal CONCLUSIONS LV systolic function is normal with EF of 60-65% Mild mitral regurgitation Mild tricuspid regurgitation Compared to prior echocardiogram from 2020, no significant changes are seen Kavon Koehler MD (Electronically Signed) Final Date: 18 October 2024 09:30 S
[2024-10-16 16:11] LABS: Troponin 5 6HR 16.53 ng/L (0-10)
[2024-10-16 16:13] LABS: Troponin 5 6HR Delta -4.47 ng/L (0-12)
[2024-10-16 17:07] LABS: Thyroid Stimulating Hormone 1.99 uIU/mL (0.27-4.20)
--- NOTE | 2024-10-16 17:19 | PHA.VACGOAL ---
Vancomycin Goal - Goal Vancomycin Goal:: 15-20 mg/L Vancomycin Indication:: Pneumonia (SEPSIS) - Therapy Current therapy:: Pip/Tazo Day of therpy:: Day [1]of [] . Actual body weight (kg): 63.458 kg - Data Labs: WBC 14.51 10^3/uL (3.29-11.43) H 10/16/24 09:37 RBC 4.14 10^6/uL (3.85-5.65) 10/16/24 09:37 Hgb 12.00 g/dL (11.27-16.99) 10/16/24 09:37 Hct 36.1 % (36-47) 10/16/24 09:37 MCV 87.2 fl (85-98) 10/16/24 09:37 MCH 29.0 pg (27-33) 10/16/24 09:37 MCHC 33.2 g/dL (30-55) 10/16/24 09:37 RDW 13.4 % (12.1-15.1) 10/16/24 09:37 Sodium 131 mmol/L (136-145) L 10/16/24 09:37 Potassium 4.1 mmol/L (3.5-5.1) 10/16/24 09:37 Chloride 96 mmol/L (98-107) L 10/16/24 09:37 Carbon Dioxide 23 mmol/L (22-29) 10/16/24 09:37 Anion Gap 16.1 (5-19) 10/16/24 09:37 BUN 27 mg/dL (8-23) H 10/16/24 09:37 Creatinine 1.4 mg/dL (0.5-0.9) H 10/16/24 09:37 GFR Calculation Not Reportable 10/16/24 09:37 Treatment plan:: new consult Regimen:: New start vancomycin for pneumonia/sepsis. No history of vancomycin found. Received 1750 mg load dose. Due to patient's calculated creatinine clearance being <30 ml/min will start on pulse dosing. Vancomycin level ordered for 10/17 @1300.
--- NOTE | 2024-10-16 17:38 | ECG_ITS ---
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 Measurements Intervals [place] Rate: 74 P: 28 ME: 200 QRS: -12 QRSD: 85 T: 30 QT: 376 QTc: 418 Interpretive Statements SINUS RHYTHM WITH OCCASIONAL ECTOPIC PREMATURE COMPLEXES LOW QRS VOLTAGE IN PRECORDIAL LEADS [QRS DEFLECTION < 1.0 mV IN CHEST LEADS] INFERIOR MYOCARDIAL INFARCTION , PROBABLY OLD [40+ ms Q WAVE AND/OR ST/T ABNORMALITY IN II/aVF] Compared to ECG 10/16/2024 12:44:46 Myocardial infarct finding now present Electronically Signed On 10-22-2024 13:59:24 SAMPLE TESTER by Kavon Koehler M.D. [email or web address]
[2024-10-16] MEDS: vancomycin 500 MG in sodium chloride 0.9% (plus) 100 ML 200 MG IV (17:43)
[2024-10-16] MEDS: enoxaparin 40 mg/0.4 mL Syringe SUBCUT (17:44)
[2024-10-16] MEDS: methylPREDNISolone sod succ 125 mg/2 mL INJ IVP (17:44)
[2024-10-16] MEDS: pantoprazole 40 mg SDV IVP (17:45)
[2024-10-16] MEDS: BuSPIRONE 10 mg Tablet 5 MG PO (17:46)
[2024-10-16 19:17] LABS: Bilirubin Urine Negative (Negative); Blood Urine Negative (Negative); Glucose Urine UA Negative (Normal); Ketones Urine Negative (Negative); Leukocyte Esterase Urine Negative (Negative); Nitrate Urine Negative (Negative); Protein Urine Negative (Negative); Specific Gravity, Urine 1.022 (1.005-1.030); Urine Appearance Clear (CLEAR); Urine Color Yellow (Yellow); Urobilinogen Urine 0.2 mg/dL (Negative)
[2024-10-16 19:20] LABS: Add Urine Microscopic? YES; Bacteria Urine None Seen /hpf; RBC Urine 0-2 /hpf (0-2); Squamous Epithelial Cell Urine 0-5 /hpf (0-5); WBC Urine 0-5 /hpf (0-5)
[2024-10-16] MEDS: budesonide 0.5 mg/2 mL Neb INHALATION (20:37)
[2024-10-16] MEDS: ipratropium-albuterol 3 mL Neb INHALATION (20:38)
[2024-10-17] VITALS (14 sets, daily range): BP systolic 101–151; BP diastolic 60–68; PULSE 53–108; RESP 15–20; TEMP 36.4–36.6; O2SAT 93–99
[2024-10-17] MEDS: piperacillin-tazobactam 3.375 GM in sodium chloride 0.9% (plus) 50 ML IV ×3 (00:54→19:53)
[2024-10-17 05:32] LABS: Basophils % 0.1 %; Hematocrit 31.1 % (36-47); Lymphocytes # 0.7 10^3/uL (0.8-4.8); Lymphocytes % 7.7 %; Mean Corpuscular HGB Conc 31.8 g/dL (30-55); Mean Corpuscular Hemoglobin 28.6 pg (27-33); Mean Corpuscular Volume 89.9 fl (85-98); Mean Platelet Volume 10.1 fL (7.4-10.4); Monocytes # 0.1 10^3/uL (0.2-0.9); Monocytes % 1.2 %; Neutrophils # 8.27 10^3/uL (1.8-7.7); Neutrophils % 90.5 %; Nucleated Red Blood Cells % 0 %; Platelet Count 174 10^3/cmm (157-399); Red Blood Count 3.46 10^6/uL (3.85-5.65); Red Cell Distribution Width 13.5 % (12.1-15.1); White Blood Count 9.14 10^3/uL (3.29-11.43)
[2024-10-17] MEDS: levothyroxine 50 mcg Tablet PO (05:34)
[2024-10-17] MEDS: aspirin 325 mg Tablet PO (05:34)
[2024-10-17] MEDS: TACROLIMUS 1 MG 1 EACH PO (05:36)
[2024-10-17 05:56] LABS: Alanine Aminotransferase 17 U/L (0-33); Alkaline Phosphatase 63 U/L (35-105); Anion Gap 15.6 (5-19); Aspartate Amino Transferase 18 U/L (0-32); Blood Urea Nitrogen 25 mg/dL (8-23); Calcium 8.6 mg/dL (8.5-10.5); Carbon Dioxide 20 mmol/L (22-29); Chloride 103 mmol/L (98-107); Creatinine Clr Calc Pharmacy 28.8765; Globulin 2.9 g/dL (1.3-4.6); Glucose 179 mg/dL (65-115); Magnesium 2.1 mg/dL (1.7-2.3); Osmolality Calculated 287 mOsm/kg (285-295); Phosphorus 3.7 mg/dL (2.5-4.5); Potassium 4.6 mmol/L (3.5-5.1); Sodium 134 mmol/L (136-145); Total Bilirubin 0.5 mg/dL (0.15-1.2); Total Protein 5.9 g/dL (6.6-8.7)
[2024-10-17] MEDS: budesonide 0.5 mg/2 mL Neb INHALATION (09:40)
[2024-10-17] MEDS: ipratropium-albuterol 3 mL Neb INHALATION ×3 (09:40→15:57)
[2024-10-17] MEDS: sodium chloride 0.9% 1,000 ML 50 ML IV (09:52)
[2024-10-17] MEDS: BuSPIRONE 10 mg Tablet 5 MG PO ×2 (09:55→17:43)
--- NOTE | 2024-10-17 11:45 | PICC.NOTE ---
Referred to vascular access nurse for US guided IV. Left arm assessed with no viable veins noted below AC. Right arm assessed. First US guided IV to right forearm unsuccessful. Second US guided attempt to right AC successful. Good blood return noted. Flushes without difficulty. Pt vessels very fragile. Suggested to bedside nurse that midline may be more appropriate if current IV fails.
[2024-10-17 13:58] LABS: Vancomycin Trough 12.1 ug/mL (10-15)
[2024-10-17] MEDS: pantoprazole 40 mg SDV IVP (15:56)
[2024-10-17] MEDS: enoxaparin 40 mg/0.4 mL Syringe SUBCUT (15:56)
[2024-10-17] MEDS: vancomycin 500 MG in sodium chloride 0.9% (plus) 100 ML 200 MG IV (17:36)
[2024-10-17] MEDS: SODIUM ZIRCONIUM CYCLOSILICATE 5 EACH PO (17:41)
--- NOTE | 2024-10-17 18:01 | P.PN_ITS ---
Subjective 2 Subjective: Patient was seen this morning, she feels better this morning she is on 2 L, no nausea, no vomiting, no chest pain, does report shortness of breath but improving, no fevers overnight Vitals/I&O/Wt Last Vital Signs Temp 97.5 F L 10/17/24 15:36 Pulse 80 10/17/24 15:57 Resp 18 10/17/24 15:57 BP 110/60 10/17/24 15:36 Pulse Ox 98 10/17/24 15:57 O2 Del Method Nasal Cannula 10/17/24 15:57 O2 Flow Rate 2 10/17/24 15:57 10/17/24 10/17/24 10/17/24 06:59 14:59 22:59 Intake Total 50 / 2850 410 / 410 120 / 530 Output Total 300 / 600 Balance -250 / 2250 410 / 410 120 / 530 Weight last 48 hrs Weight 63.458 kg Weight 63.458 kg Weight 58.967 kg Physical Exam 2 Const: COMMON NORMALS: no acute distress and patient oriented x3 Resp: COMMON NORMALS: normal respiratory effort, No retractions, No use of accessory muscles and clear to auscultation bilaterally AUSCULTATION: clear to auscultation bilaterally Cardio: COMMON NORMALS: regular rate, regular rhythm, S1 normal heart sound present and S2 normal heart sound present RATE: regular rate RHYTHM: r egular rhythm HEART SOUNDS: S1 normal heart sound present and S2 normal heart sound present GI: COMMON NORMALS: Normal to inspection, nondistended, normoactive bowel sounds present and non-tender Extremity: COMMON NORMALS: no pedal edema Neuro: COMMON NORMALS: patient oriented x3 Psych: COMMON NORMALS: mental status grossly normal Data 10/17/24 04:20 10/17/24 04:20 Micro: Microbiology 10/16/24 10:06 Blood Culture - Preliminary Blood NEGATIVE TO DATE 10/16/24 10:04 Blood Culture - Preliminary Blood NEGATIVE TO DATE 10/16/24 16:03 Gram Stain - Final Sputum - Expectorated Sputum Sputum Culture - Preliminary 10/16/24 11:52 Urine Culture - Preliminary Urine,Clean Catch A&P Assessment and plan (1) Acute hypoxic respiratory failure: (2) RSV infection: (3) Sepsis: (4) Pneumonia: (5) Hyponatremia: (6) JAMES (acute kidney injury): (7) Hypomagnesemia: Plan Acute hypoxic respiratory failure -Secondary to pneumonia -Secondary to RSV Plan -Monitor respiratory status closely -Order ABG -CT angiogram the chest 2. Left lingular consolidation. Patchy opacities within the bilateral bases, [id number]-right likely representing multifocal pneumonia. 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
[2024-10-17] MEDS: methylPREDNISolone sod succ 40 mg/mL INJ IVP (19:53)
[2024-10-18] MEDS: piperacillin-tazobactam 3.375 GM in sodium chloride 0.9% (plus) 50 ML IV ×2 (03:24→11:22)
[2024-10-18 03:43] VITALS: PULSE 91
[2024-10-18 04:00] VITALS: BP 110/60; PULSE 84; RESP 19; TEMP 36.5; O2SAT 98
[2024-10-18] MEDS: aspirin 325 mg Tablet PO (06:09)
[2024-10-18] MEDS: levothyroxine 50 mcg Tablet PO (06:09)
[2024-10-18] MEDS: sodium chloride 0.9% 1,000 ML 50 ML IV (06:09)
[2024-10-18] MEDS: TACROLIMUS 1 MG 1 EACH PO (06:10)
[2024-10-18 07:27] VITALS: BP 133/78; PULSE 53; RESP 16; TEMP 36.7; O2SAT 96
[2024-10-18 07:44] LABS: Basophils % 0.1 %; Hematocrit 29.2 % (36-47); Lymphocytes # 0.9 10^3/uL (0.8-4.8); Lymphocytes % 6.8 %; Mean Corpuscular HGB Conc 32.9 g/dL (30-55); Mean Corpuscular Hemoglobin 29.6 pg (27-33); Mean Corpuscular Volume 90.1 fl (85-98); Mean Platelet Volume 9.4 fL (7.4-10.4); Monocytes # 0.4 10^3/uL (0.2-0.9); Monocytes % 3.1 %; Neutrophils % 88.7 %; Nucleated Red Blood Cells % 0 %; Platelet Count 176 10^3/cmm (157-399); Red Blood Count 3.24 10^6/uL (3.85-5.65); Red Cell Distribution Width 13.9 % (12.1-15.1); White Blood Count 12.96 10^3/uL (3.29-11.43)
[2024-10-18 08:00] VITALS: PULSE 68; RESP 18; O2SAT 96
[2024-10-18 08:00] LABS: Vancomycin Random 13.9 ug/mL (20.0-40.0)
[2024-10-18 08:03] LABS: Alanine Aminotransferase 16 U/L (0-33); Albumin Level 2.9 g/dL (3.5-5.2); Alkaline Phosphatase 59 U/L (35-105); Anion Gap 17.8 (5-19); Blood Urea Nitrogen 29 mg/dL (8-23); Calcium 8.7 mg/dL (8.5-10.5); Carbon Dioxide 18 mmol/L (22-29); Chloride 104 mmol/L (98-107); Creatinine Clr Calc Pharmacy 26.8677; Globulin 2.5 g/dL (1.3-4.6); Glucose 163 mg/dL (65-115); Magnesium 1.9 mg/dL (1.7-2.3); Osmolality Calculated 289 mOsm/kg (285-295); Phosphorus 3.6 mg/dL (2.5-4.5); Potassium 4.8 mmol/L (3.5-5.1); Sodium 135 mmol/L (136-145); Total Bilirubin 0.2 mg/dL (0.15-1.2); Total Protein 5.4 g/dL (6.6-8.7)
[2024-10-18 08:10] LABS: Aspartate Amino Transferase 15 U/L (0-32)
[2024-10-18] MEDS: vancomycin 500 MG in sodium chloride 0.9% (plus) 100 ML 200 MG IV (08:35)
[2024-10-18] MEDS: BuSPIRONE 10 mg Tablet 5 MG PO (08:36)
[2024-10-18] MEDS: methylPREDNISolone sod succ 40 mg/mL INJ IVP (08:36)
[2024-10-18] MEDS: budesonide 0.5 mg/2 mL Neb INHALATION (08:46)
[2024-10-18] MEDS: ipratropium-albuterol 3 mL Neb INHALATION ×2 (08:46→11:47)
[2024-10-18 11:27] VITALS: BP 131/76; PULSE 59; RESP 15; TEMP 36.7; O2SAT 95
[2024-10-18 11:53] VITALS: PULSE 74; RESP 18; O2SAT 95
--- NOTE | 2024-10-18 12:13 | PM.DCS ---
Discharge Providers Date of Admission: 10/16/24 11:00 Date of Discharge: October 18, 2024 Attending Provider at Admission: Elvis Benitez MD Attending Provider at Discharge: Elvis Benitez MD Primary Care Provider: Julia Ortiz Diagnoses at Discharge Discharge Diagnosis (1) Acute hypoxic respiratory failure: Status: Resolved (2) RSV infection: Status: Resolved (3) Sepsis: Status: Resolved (4) Pneumonia: Status: Resolved (5) Hyponatremia: Status: Resolved (6) JAMES (acute kidney injury): Status: Resolved (7) Hypomagnesemia: Status: Resolved Reason for Visit Reason for Visit: n/v, cough Hospital Course Hospital Course Vanessa Stewart is a 74 year old female with a past medical history of liver transplant 3 years ago for READ, on tacrolimus, follows up with 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 Patient tells me that she has chronic shortness of breath, her overlay operator Dr. King has referred her to cardiology for further evaluation, she has had multiple stress test which have been within normal limits. She is supposed to follow-up with cardiology. She tells me that for the last 3 weeks she has been sick, she saw her primary care provider was given a shot of steroids but continues to have worsening shortness of breath, fatigue, malaise, cough, shortness of breath with exertion. This morning she had fatigue, malaise, feeling unwell, lightheadedness no chest pain, no palpitations, no abdominal pain, does have a poor appetite so she presented to [facility] for evaluation Patient was admitted to [facility] for acute hypoxic respiratory failure secondary pneumonia, RSV, received broad-spectrum antibiotic therapy, monitored as an inpatient, overall clinically improved, discharged home with close follow-up primary care provider as outpatient JAMES received IV fluids resolved Hyponatremia, received IV fluids resolved Tacrolimus level came low at 3.4 spoke to patient, her transplant team had drawn her Tac level, and they want it under 5, so on 10/26/2024 they want to keep her at her current dose - Please continue to hydrate well drink plenty of electrolyte balanced fluids - follow-up with cardiology -Follow-up with Dr. Rocha next week -You do have a prominent right hilar lymph node 1.3 cm, with scattered prominent mediastinal lymph nodes largest of which precarinal measures 9 mm in short axis, this should be followed up as outpatient either through Dr. Rocha or your primary care for repeat CT imaging in 1 month Physical Exam Const: COMMON NORMALS: no acute distress and patient oriented x3 Resp: COMMON NORMALS: normal respiratory effort, No retractions, No use of accessory muscles and clear to auscultation bilaterally AUSCULTATION: clear to auscultation bilaterally Cardio: COMMON NORMALS: regular rate, regular rhythm, S1 normal heart sound present and S2 normal heart sound present RATE: regular rate RHYTHM: regular rhythm HEART SOUNDS: S1 normal heart sound present and S2 normal heart sound present GI: COMMON NORMALS: Normal to inspection, nondistended, normoactive bowel sounds present and non-tender Extremity: COMMON NORMALS: no pedal edema Neuro: COMMON NORMALS: patient oriented x3 Psych: COMMON NORMALS: mental status grossly normal Discharge Data Studies Completed and Pending Completed Studies During Hospitalization Category Date Time Status CT angio chest PE protcl [id number] Stat Cat Scan 10/16/24 11:07 Completed XR chest 1V portable [id number] Stat Exams 10/16/24 09:18 Completed CV. echo complete* [id number] Routine Ultrasound 10/16/24 15:57 Completed Pending at discharge Category Date Time Status Blood Culture Stat Lab 10/16/24 10:06 Results Complete Blood Count w/Auto AM LABS Lab 10/19/24 04:00 Ordered Comprehensive Metabolic Panel AM LABS Lab 10/19/24 04:00 Ordered Magnesium AM LABS Lab 10/19/24 04:00 Ordered Phosphorus AM LABS Lab 10/19/24 04:00 Ordered Sputum Culture and Gram Stain Stat Lab 10/16/24 16:03 Results Tacrolimus, LS/MS/MS Routine Lab 10/16/24 11:41 Received Vancomycin Random AM LABS Lab 10/19/24 04:00 Ordered US renal BI* [id number] Routine Ultrasound 10/18/24 08:58 Ordered Radiology Impressions Chest X-Ray 10/16/24 09:18 IMPRESSION: Left lingular and lower lobe consolidation. Chest CTA 10/16/24 11:07 IMPRESSION: 1. No large pulmonary embolism. 2. Left lingular consolidation. Patchy opacities within the bilateral bases, [id number]-right likely representing multifocal pneumonia. 3. Other chronic findings as above. Laboratory Results WBC 12.96 10^3/uL (3.29-11.43) H 10/18/24 07:21 RBC 3.24 10^6/uL (3.85-5.65) L 10/18/24 07:21 Hgb 9.60 g/dL (11.27-16.99) L 10/18/24 07:21 Hct 29.2 % (36-47) L 10/18/24 07:21 MCV 90.1 fl (85-98) 10/18/24 07:21 MCH 29.6 pg (27-33) 10/18/24 07:21 MCHC 32.9 g/dL (30-55) 10/18/24 07:21 RDW 13.9 % (12.1-15.1) 10/18/24 07:21 Plt Count 176 10^3/cmm (157-399) 10/18/24 07:21 MPV 9.4 fL (7.4-10.4) 10/18/24 07:21 Neut % (Auto) 88.7 % 10/18/24 07:21 Lymph % (Auto) 6.8 % 10/18/24 07:21 [place] % (Auto) 3.1 % 10/18/24 07:21 Eos % (Auto) 0.0 % 10/18/24 07:21 Baso % (Auto) 0.1 % 10/18/24 07:21 Neut # (Auto) 11.50 10^3/uL (1.8-7.7) H 10/18/24 07:21 Lymph # (Auto) 0.9 10^3/uL (0.8-4.8) 10/18/24 07:21 [place] # (Auto) 0.4 10^3/uL (0.2-0.9) 10/18/24 07:21 Eos # (Auto) 0.0 10^3/uL (0.0-0.8) 10/18/24 07:21 Baso # (Auto) 0.0 10^3/uL (0.0-0.1) 10/18/24 07:21 Nucleated RBC % (auto) 0 % 10/18/24 07:21 Nucleated RBCs # 0.0 /100WBC 10/18/24 07:21 D-Dimer 0.70 ug/mLFEU (0-0.59) H 10/16/24 09:37 Specimen Type Arterial 10/16/24 11:28 Sample Site Radial, left 10/16/24 11:28 ABG pH 7.48 (7.35-7.45) H 10/16/24 11:28 ABG pCO2 26.4 mmHg (35-45) L 10/16/24 11:28 ABG pO2 61.4 mmHg (80.0-100.0) L 10/16/24 11:28 ABG PO2/FiO2 Ratio 292 10/16/24 11:28 ABG HCO3 19.7 mmol/L (22-26) L 10/16/24 11:28 ABG Base Excess -2.7 mmol/L (-2.0-2.0) L 10/16/24 11:28 Tayo Test Pos 10/16/24 11:28 Hematocrit 33.6 % (37-47) L 10/16/24 11:28 O2 Delivery Device Room air 10/16/24 11:28 FiO2 21.0 % 10/16/24 11:28 Embroidery Specialist ID [place] 10/16/24 11:28 Sodium 135 mmol/L (136-145) L 10/18/24 07:21 Potassium 4.8 mmol/L (3.5-5.1) 10/18/24 07:21 Chloride 104 mmol/L (98-107) 10/18/24 07:21 Carbon Dioxide 18 mmol/L (22-29) L 10/18/24 07:21 Anion Gap 17.8 (5-19) 10/18/24 07:21 BUN 29 mg/dL (8-23) H 10/18/24 07:21 Creatinine 1.5 mg/dL (0.5-0.9) H 10/18/24 07:21 GFR Calculation Not Reportable 10/18/24 07:21 Glucose 163 mg/dL (65-115) H 10/18/24 07:21 Estimat Average Glucose 103 10/16/24 09:37 Hemoglobin A1c 5.2 % (4.0-6.0) 10/16/24 09:37 Calculated Osmolality 289 mOsm/kg (285-295) 10/18/24 07:21 Lactic Acid 1.1 mmol/L (0.5-2.2) 10/16/24 09:37 Calcium 8.7 mg/dL (8.5-10.5) 10/18/24 07:21 Phosphorus 3.6 mg/dL (2.5-4.5) 10/18/24 07:21 Magnesium 1.9 mg/dL (1.7-2.3) 10/18/24 07:21 Total Bilirubin 0.2 mg/dL (0.15-1.2) 10/18/24 07:21 AST 15 U/L (0-32) 10/18/24 07:21 ALT 16 U/L (0-33) 10/18/24 07:21 Alkaline Phosphatase 59 U/L (35-105) 10/18/24 07:21 Troponin T Baseline 21 ng/L (0-10) H 10/16/24 09:37 Troponin T 120 Minute 18.47 ng/L (0-10) H 10/16/24 11:41 Delta Troponin T -2.53 ABS# (0-10) L 10/16/24 11:41 Troponin T Hi Sens 6Hr 16.53 ng/L (0-10) H 10/16/24 15:35 Troponin T Hi Sens 6Hr Delta -4.47 ng/L (0-12) L 10/16/24 15:35 C-Reactive Protein 34.8 mg/L (0.0-4.9) H 10/16/24 09:37 NT-Pro-B Natriuret Pep 460 pg/mL (0-450) H 10/16/24 09:37 Total Protein 5.4 g/dL (6.6-8.7) L 10/18/24 07:21 Albumin 2.9 g/dL (3.5-5.2) L 10/18/24 07:21 Globulin 2.5 g/dL (1.3-4.6) 10/18/24 07:21 Procalcitonin 0.44 ng/mL (0-0.5) 10/16/24 09:37 TSH 1.99 uIU/mL (0.27-4.20) 10/16/24 11:41 Urine Color Yellow (Yellow) 10/16/24 17:51 Urine Appearance Clear (CLEAR) 10/16/24 17:51 Urine pH 5.0 (5-7) 10/16/24 17:51 Ur Specific [place] 1.022 (1.005-1.030) 10/16/24 17:51 Urine Protein Negative (Negative) 10/16/24 17:51 Urine Glucose (UA) Negative (Normal) 10/16/24 17:51 Urine Ketones Negative (Negative) 10/16/24 17:51 Urine Blood Negative (Negative) 10/16/24 17:51 Urine Nitrate Negative (Negative) 10/16/24 17:51 Urine Bilirubin Negative (Negative) 10/16/24 17:51 Urine Urobilinogen 0.2 mg/dL (Negative) 10/16/24 17:51 Ur Leukocyte Esterase Negative (Negative) 10/16/24 17:51 Urine RBC 0-2 /hpf (0-2) 10/16/24 17:51 Urine WBC 0-5 /hpf (0-5) 10/16/24 17:51 Ur Squamous Epith Cells 0-5 /hpf (0-5) 10/16/24 17:51 Amorphous Sediment Not Reportable 10/16/24 17:51 Urine Bacteria None seen /hpf (NONE) 10/16/24 17:51 Hyaline Casts 3.30 /lpf 10/16/24 17:51 Vancomycin Trough 12.1 ug/mL (10-15) 10/17/24 13:35 Random Vancomycin 13.9 ug/mL (20.0-40.0) L 10/18/24 07:21 Coronavirus (PCR) Negative (Negative) 10/16/24 09:22 Influenza A (PCR) Negative (Negative) 10/16/24 09:22 Influenza Type B (PCR) Negative (Negative) 10/16/24 09:22 RSV (PCR) Positive (Negative) A 10/16/24 09:22 Vitals Last Vital Signs Temp 98.1 F 10/18/24 11:27 Pulse 74 10/18/24 11:53 Resp 18 10/18/24 11:53 BP 131/76 10/18/24 11:27 Pulse Ox 95 10/18/24 11:53 O2 Del Method Room Air 10/18/24 11:53 O2 Flow Rate 1 10/18/24 07:27 Discharge Plan Discharge Patient Disposition: Home Condition: Stable Prescriptions: Continued montelukast 10 mg tablet 10 mg PO DAILY Qty: 90 3RF albuterol sulfate [Ventolin HFA] 90 mcg/actuation HFA aerosol inhaler 2 puff INHALATION Q6H MDD 8 puffs PRN (Reason: shortness of breath or wheezing) Qty: 8.5 3RF fluticasone propionate 50 mcg/actuation spray,suspension 1 spray INTRANASAL BID PRN (Reason: allergies) Rx Instructions: administer into each nostril buspirone 5 mg tablet 5 mg PO BID aspirin 325 mg tablet 325 mg PO QAM calcium carbonate 500 mg calcium (1,250 mg) tablet 500 mg PO BID multivitamin Tablet 1 tab PO QAM ipratropium-albuterol 0.5 mg-3 mg(2.5 mg base)/3 mL Solution For Nebulization 3 ml INHALATION Q4H PRN (Reason: Shortness Of Breath) cetirizine 10 mg tablet 10 mg PO QAM melatonin 3 mg Tablet 6 mg PO QPM levothyroxine 50 mcg tablet 50 mcg PO QAM fluticasone furoate-vilanterol [Breo Ellipta] 100-25 mcg/dose blister with device 1 inh INHALATION .9AM Envarsus XR 1 mg Tablet Extended Release 24 Hr 1 mg PO QAM Rx Instructions: must be taken on empty stomach Lokelma 5 gram Powder In Packet 5 g PO DAILY omeprazole 20 mg capsule,delayed release(DR/EC) 20 mg PO QAM Discharge Orders: Discharge Order (Routine); Ordered 10/18/24 Ordered By: Elvis Benitez Referrals: Greg Yen MD [Physician] - 1 week (We have notified your physician's clinic of the need for a follow-up appointment to be scheduled. If you have not heard from them within the next 2 business days, please call them directly. ) Julia Ortiz PA [Primary Care Provider] - 11/03/24 9:20 am Discharge Diet: Cardiac Discharge Activity: Resume usual activity Patient Instructions: Levofloxacin (By mouth) (Levaquin, Levaquin Leva-jossie), RSV (Respiratory Syncytial Virus) Infection (GEN), Opioid Safety Activity Restrictions/Additional Instructions: - Please continue to hydrate well drink plenty of electrolyte balanced fluids - follow-up with cardiology -please take antibiotics as prescribed for pneumonia -Follow-up with Dr. Rocha next week -You do have a prominent right hilar lymph node 1.3 cm, with scattered prominent mediastinal lymph nodes largest of which precarinal measures 9 mm in short axis, this should be followed up as outpatient either through Dr. Rocha or your primary care for repeat CT imaging in 1 month Discharge Attestations Time Spent in Discharge Care*: greater than 30 min Quality Metrics Clinical Quality Measures [ No reported AMI, CVA or VTE this stay] Coding Level of Care Code 46786 Total time (in minutes) for Discharge: 45 Diagnoses Acute hypoxic respiratory failure J96.01 RSV infection B33.8 Sepsis A41.9 Pneumonia J18.9 Hyponatremia E87.1 JAMES (acute kidney injury) N17.9 Hypomagnesemia E83.42
--- NOTE | 2024-10-18 12:25 | PC.NURSE ---
financial writer called clinic to schedule hospital discharge appointment. was told that lauryn cohen will be out of office next week and there is no other provider covering so the soonest appointment will be the morning of november 03
[2024-10-18 15:15] LABS: Tacrolimus, Highly Sensitive 3.4 mcg/L
== END 2024-10-18 14:25 | disposition home or self-care (01) | DRG 871 ==
LOC: ER 10:44 → ER IP 13:46 → MEDSURG 14:57
PROVIDERS: Admitting Provider Family Medicine; Emergency Provider Emergency Medicine; PCP Physician Assistant; Visit Provider Family Medicine
DX: A41.9 Sepsis, unspecified organism (principal); J18.9 Pneumonia, unspecified organism; J96.01 Acute respiratory failure with hypoxia; E87.1 Hypo-osmolality and hyponatremia; N17.9 Acute kidney failure, unspecified; Z94.4 Liver transplant status; D84.821 Immunodeficiency due to drugs; B97.4 Respiratory syncytial virus as the cause of diseases classified elsewhere; E83.42 Hypomagnesemia; Z79.621 Long term (current) use of calcineurin inhibitor; J45.909 Unspecified asthma, uncomplicated; E78.5 Hyperlipidemia, unspecified; Z86.711 Personal history of pulmonary embolism; Z86.718 Personal history of other venous thrombosis and embolism; Z86.16 Personal history of COVID-19; N39.46 Mixed incontinence; Z92.3 Personal history of irradiation; E03.9 Hypothyroidism, unspecified; Z85.3 Personal history of malignant neoplasm of breast; Z90.49 Acquired absence of other specified parts of digestive tract
CPT/HCPCS: 36415; 36600; 71045; 71275; 80053; 80197; 80202; 81001; 82803; 83036; 83605; 83735; 83880; 84100; 84145; 84443; 84484; 85025; 85378; 86140; 87040; 87070; 87086; 87205; 87637; 93005; 93306; 94640; 94664; 96365; 96367; 96372; 96375; 99285; G0378; J1650; J2405; J2470; J2543; J2919; J3370; J3475; J7030; J7626

== ENCOUNTER → 2024-10-24 12:59 | Outpatient (BNVA) | payer MEDICARE, OTHER, SELFPAY | PROVIDERS: PCP Physician Assistant; Visit Provider Anesthesiology Pain Medicine | DX: M79.18 Myalgia, other site (principal); M47.812 Spondylosis without myelopathy or radiculopathy, cervical region; M50.30 Other cervical disc degeneration, unspecified cervical region; Z98.1 Arthrodesis status | CPT/HCPCS: 20553; 99214; J1010; J3490 ==

== ENCOUNTER → 2024-11-15 14:16 | Outpatient (BNVA) | payer MEDICARE, OTHER, SELFPAY | PROVIDERS: PCP Physician Assistant; Referring Provider Internal Medicine Pulmonary Disease; Visit Provider Internal Medicine Cardiovascular Disease | DX: R06.02 Shortness of breath (principal); R09.89 Other specified symptoms and signs involving the circulatory and respiratory systems; Z94.4 Liver transplant status | CPT/HCPCS: 99204 ==

== ENCOUNTER → 2024-11-21 08:30 | Outpatient (BNVA) | payer MEDICARE, OTHER, SELFPAY | PROVIDERS: PCP Physician Assistant; Visit Provider Podiatrist Foot & Ankle Surgery | DX: M72.2 Plantar fascial fibromatosis (principal); M79.671 Pain in right foot | CPT/HCPCS: 20550 ==

== ENCOUNTER 2024-11-29 11:10 | Outpatient (CLI) | payer MEDICARE, OTHER, SELFPAY ==
[2024-11-29 12:03] LABS: Basophils % 0.4 %; Eosinophils # 0.1 10^3/uL (0.0-0.8); Eosinophils % 1.4 %; Hematocrit 32.3 % (36-47); Lymphocytes # 1.9 10^3/uL (0.8-4.8); Lymphocytes % 23.7 %; Mean Corpuscular HGB Conc 32.8 g/dL (30-55); Mean Corpuscular Hemoglobin 29.2 pg (27-33); Mean Platelet Volume 9.2 fL (7.4-10.4); Monocytes # 0.9 10^3/uL (0.2-0.9); Monocytes % 10.7 %; Neutrophils # 5.07 10^3/uL (1.8-7.7); Neutrophils % 62.8 %; Nucleated Red Blood Cells % 0 %; Platelet Count 207 10^3/cmm (157-399); Red Blood Count 3.63 10^6/uL (3.85-5.65); Red Cell Distribution Width 13.3 % (12.1-15.1); White Blood Count 8.06 10^3/uL (3.29-11.43)
[2024-11-29 12:28] LABS: INR 0.94 (0.83-1.21); Prothrombin Time (Patient) 13.2 Seconds (12.0-15.1)
[2024-11-29 12:42] LABS: Anion Gap 14.3 (5-19); Blood Urea Nitrogen 30 mg/dL (8-23); Carbon Dioxide 24 mmol/L (22-29); Chloride 103 mmol/L (98-107); Glucose 94 mg/dL (65-115); Osmolality Calculated 290 mOsm/kg (285-295); Potassium 4.3 mmol/L (3.5-5.1); Sodium 137 mmol/L (136-145)
== END 2024-11-29 11:11 | disposition home or self-care (01) ==
PROVIDERS: PCP Physician Assistant; Visit Provider Internal Medicine Cardiovascular Disease
DX: R06.02 Shortness of breath (principal); I20.89 Other forms of angina pectoris; R58 Hemorrhage, not elsewhere classified
CPT/HCPCS: 36415; 80048; 85025; 85610

== ENCOUNTER 2024-12-01 09:43 | Outpatient (RCR) | payer MEDICARE, OTHER, SELFPAY | END 2024-12-19 23:59 | disposition home or self-care (01) | LOC: SPT 09:43 | PROVIDERS: PCP Physician Assistant; Visit Provider Podiatrist Foot & Ankle Surgery | DX: M72.2 Plantar fascial fibromatosis (principal); M79.671 Pain in right foot | CPT/HCPCS: 97110; 97140; 97161 ==

== ENCOUNTER 2024-12-04 14:00 | Inpatient (IN) | payer MEDICARE, OTHER, SELFPAY ==
--- NOTE | 2024-12-04 15:02 | PM.HP ---
Providers/Chief Complaint Admitting Physician: Greg Yen MD Primary Care Provider: Julia Ortiz Chief Complaint: pre hydration for CCL CSU 104 History of Present Illness Vanessa Stewart is a 74 year old female past medical history significant for liver cirrhosis from secondary fatty liver etiology on liver transplant list, hyperlipidemia, bilateral carpal tunnel syndrome, asthma, chronic cough and chronic kidney disease who struggling with unexplained shortness of breath has been referred to us from her cow tester Dr. Andrews to perform left and right heart cath in order to rule out obstructive coronary artery disease pulmonary AVM or intracardiac shunt. Patient baseline creatinine 1.3-1.4. She appeared to be dehydrated being on diuretics. It is the reason she has been admitted for overnight IV hydration for acute on chronic kidney disease in order to prevent contrast induced nephropathy. We will be proceeding with left and right heart cath tomorrow. Review of Systems All/Imm: Reports: acute wheezing Medications/Allergies Home Medications ?Medication ?Instructions ?Recorded ?Confirmed ?Last Taken ?Type albuterol sulfate 90 mcg/actuation 2 puff inhalation Q6H PRN 09/22/19 12/02/24 Unknown Rx aerosol inhaler (Ventolin HFA) shortness of breath or wheezing #8.5 grams montelukast 10 mg tablet 10 mg PO DAILY #90 tabs 11/30/19 12/02/24 10/15/24 Rx fluticasone propionate 50 1 spray intranasal BID PRN 06/07/20 12/02/24 Unknown History mcg/actuation nasal allergies spray,suspension aspirin 325 mg tablet 325 mg PO QAM 10/16/22 12/02/24 10/15/24 History buspirone 5 mg tablet 5 mg PO BID 10/16/22 12/02/24 10/15/24 History calcium carbonate 500 mg PO BID 11/25/23 12/02/24 10/15/24 History cetirizine 10 mg tablet 10 mg PO QAM 10/16/24 12/02/24 10/15/24 History fluticasone furoate 100 1 inh inhalation .9AM 10/16/24 12/02/24 10/15/24 History mcg-vilanterol 25 mcg/dose inhalation powder (Breo Ellipta) ipratropium 0.5 mg-albuterol 3 mg 3 ml inhalation Q4H PRN Shortness 10/16/24 12/02/24 Unknown History (2.5 mg base)/3 mL nebulization Of Breath soln levothyroxine 50 mcg tablet 50 mcg PO QAM 10/16/24 12/02/24 10/15/24 History melatonin 3 mg tablet 6 mg PO QPM 10/16/24 12/02/24 10/15/24 History multivitamin 1 tab PO QAM 10/16/24 12/02/24 10/15/24 History omeprazole 20 mg capsule,delayed 20 mg PO QAM 10/16/24 12/02/24 10/15/24 History release sodium zirconium cyclosilicate 5 5 g PO DAILY 10/16/24 12/02/24 10/15/24 History gram oral powder packet (Lokelma) tacrolimus 1 mg tablet,extended 1 mg PO QAM 10/16/24 12/02/24 10/15/24 History release 24 hr (Envarsus XR) furosemide 20 mg tablet (Lasix) 20 mg PO DAILY #90 tabs 11/15/24 12/02/24 Unknown Rx Allergies Allergy/AdvReac Type Severity Reaction Status Date / Time No Known Allergies Allergy Verified 12/02/24 10:02 PFSH Acute PFSH: Medical History (Updated 12/04/24 @ 18:18 by Greg Yen MD) Shortness of breath Mixed stress and urge urinary incontinence Hx of radiation therapy Chronic GERD Hyperlipidemia Chronic cystitis Environmental and seasonal allergies Hypertension Hypothalamic hypothyroidism Breast cancer, left Surgical History Hx of breast surgery History of cholecystectomy Laparoscopic 09/09/19 History of hysterectomy 1982 Family History Other CAD (coronary artery disease) Cancer Chronic kidney disease (CKD) Diabetes Hyperlipidemia Hypertension Psychiatric illness Social History Smoking and tobacco/nicotine status: never used tobacco/nicotine Second hand smoke exposure: Yes Alcohol intake: never Substance/Drug Use: never Adopted: No Caregiver/support person: No Lives independently: Yes Household members: spouse and children Housing: House Marital status: Number of children: 3 Number of grandchildren: 4 Current occupational status: retired Do you think of yourself as: Straight/Heterosexual Current gender identity: Female Physical Exam Const: OTHER: GENERAL: Patient is alert, awake and oriented x3. HEART: Regular S1 and S2. No murmur, rub or gallop. LUNGS: Clear to auscultate bilaterally. CENTRAL NERVOUS SYSTEM: Grossly nonfocal. EXTREMITIES: Lower extremities with out edema bilaterally. A&P Assessment and plan (1) Shortness of breath: (2) Anginal equivalent: (3) CKD (chronic kidney disease) stage 3, GFR 30-59 ml/min: (4) Dehydration: Plan Patient is admitted to the floor for IV hydration Discontinue Lasix Start IV fluid 100 mL/h for next 12 Check BMP in the Continue home medication Proceed with left and right heart cath in the morning. Further plan will be advised as per progress the patient PDMP PDMP Reviewed: Not Reviewed Attestations Medical Necessity Statement*: I am expecting patient's stay to cross more than 2 midnight Coding Level of Care Code Acute Code for g Fwd Diagnoses Shortness of breath R06.02 Anginal equivalent I20.89 CKD (chronic kidney disease) stage 3, GFR 30-59 ml/min N18.30 Dehydration E86.0
[2024-12-04] MEDS: sodium chloride 0.9% 1,000 ML 50 ML IV (17:06)
[2024-12-04 19:57] VITALS: PULSE 79; RESP 17; O2SAT 99
[2024-12-04] MEDS: albuterol 2.5 mg/3 mL Neb INHALATION (19:57)
[2024-12-04] MEDS: budesonide 0.5 mg/2 mL Neb INHALATION (19:57)
[2024-12-04 20:04] VITALS: BP 134/83; PULSE 80; RESP 18; TEMP 36.7; O2SAT 100
[2024-12-04 20:08] VITALS: PULSE 83
[2024-12-04] MEDS: BuSPIRONE 10 mg Tablet 5 MG PO (20:45)
[2024-12-04] MEDS: calcium carbonate 500 mg Chew Tablet PO (20:45)
[2024-12-04] MEDS: MELATONIN 3 MG TABLET 6 MG PO (20:45)
[2024-12-04 23:40] VITALS: BP 134/83; PULSE 97; RESP 17; TEMP 36.6; O2SAT 99
[2024-12-05] VITALS (10 sets, daily range): BP systolic 104–124; BP diastolic 51–88; PULSE 74–92; RESP 16–22; TEMP 36.6–36.7; O2SAT 94–100
[2024-12-05 03:52] LABS: Basophils % 0.1 %; Eosinophils # 0.1 10^3/uL (0.0-0.8); Eosinophils % 1.2 %; Hematocrit 29.6 % (36-47); Lymphocytes # 2.2 10^3/uL (0.8-4.8); Mean Corpuscular HGB Conc 32.4 g/dL (30-55); Mean Corpuscular Hemoglobin 29.7 pg (27-33); Mean Corpuscular Volume 91.6 fl (85-98); Mean Platelet Volume 9.7 fL (7.4-10.4); Monocytes # 0.6 10^3/uL (0.2-0.9); Neutrophils # 5.69 10^3/uL (1.8-7.7); Neutrophils % 66.1 %; Nucleated Red Blood Cells % 0 %; Platelet Count 203 10^3/cmm (157-399); Red Blood Count 3.23 10^6/uL (3.85-5.65); Red Cell Distribution Width 13.6 % (12.1-15.1)
[2024-12-05 04:13] LABS: Anion Gap 13.4 (5-19); Blood Urea Nitrogen 26 mg/dL (8-23); Calcium 8.8 mg/dL (8.5-10.5); Carbon Dioxide 23 mmol/L (22-29); Chloride 107 mmol/L (98-107); Glucose 92 mg/dL (65-115); Osmolality Calculated 292 mOsm/kg (285-295); Potassium 4.4 mmol/L (3.5-5.1); Sodium 139 mmol/L (136-145)
[2024-12-05] MEDS: cetirizine 10 mg Tablet PO (05:09)
[2024-12-05] MEDS: pantoprazole DR 40 mg Tablet PO (05:09)
[2024-12-05] MEDS: levothyroxine 50 mcg Tablet PO (05:09)
--- NOTE | 2024-12-05 06:23 | XACV_ITS ---
Exam Room: 2 Ht: 152 cm Wt: 59 kg BSA: 1.59 m2 Gender: Female : 1950 Any Known Allergies: No known allergies Exam Priority: Routine Procedure(s): Procedure Description: Diagnostic procedure Procedure Description: Left Heart Catheterization Procedure Description: Right Heart Catheterization Procedure Description: Left ventriculography Procedure Description: O2 saturation Procedure Description: Coronary Angiography Farshad NGUYỄN; Diagnostic Cath Status: Elective Diagnostic Findings * No disease noted in the Left Main, Left Anterior Descending, Right, or Circumflex coronary arteries. * Coronary angiography shows right dominance. Conclusions 1. No disease noted in the Left Main, Left Anterior Descending, Right, or Circumflex coronary arteries. 2. Hyperdynamic left ventricular systolic function. Ejection fraction of 75%. 3. Right heart catheterizationPulmonary capillary wedge pressure: 10 mmHg Pulmonary artery mean pressure: 17 mmHg RV pressure: 22/0 with mean of 5 mmHg RA pressure: 7 mmHgCardiac output by Lara: 5 L/min Cardiac index:3.3 L/mn*m2AO sat: 98% PA sat: 73% RV sat: 76% RA sat: 76%Normal right and left-sided pressures No intracardiac shunt noted Normal cardiac output and cardiac index. Recommendations * Continue current medical management and risk factor modification. Diagnostic RX Recommendation: medical therapy and/or counseling LV EDP: 5 mmHg Ventriculography Ejection Fraction: 75.0 % Pressures Phase:Rest AO : 106 / 63 ( 81 ) @ 11:05:00 AM 108 / 60 ( 84 ) @ 11:19:00 AM 97 / 62 ( 78 ) @ 11:19:00 AM LV : 109 / 1 / 5 @ 11:18:00 AM 120 / 2 / 10 @ 11:19:00 AM 134 / 0 / 14 @ 11:19:00 AM RV : 21 / 1 / 12 @ 10:54:00 AM 22 / 0 / 5 @ 10:55:00 AM PA : 25 / 7 ( 18 ) @ 10:52:00 AM 25 / 9 ( 17 ) @ 10:54:00 AM RA : a wave = 11 v wave = 8 mean = 7 @ 10:55:00 AM PCW : a wave = 13 v wave = 10 mean = 10 @ 10:53:00 AM O2 Content Phase:Rest PA : O2 Content O2: 73.0 @ 11:18:00 AM Saturations Phase:Rest AO : 98 @ 11:05:00 AM RA : 76 @ 11:19:00 AM RV : 76 @ 11:19:00 AM PA : 73 @ 11:18:00 AM Cardiac Output Phase:Rest Lara : 5 @ 10:35:54 AM Lara Cardiac Index: 3 @ 10:35:54 AM Flow Phase:Rest Qp : 5 @ 10:35:54 AM Qs : 6 @ 10:35:54 AM Valves Phase:DefaultPhase AV : 6.0 @ 10:35:54 AM AV Mean Gradient: 9.0 @ 10:35:54 AM AV Flow: 201 @ 10:35:54 AM AV Area: 1.5 @ 10:35:54 AM AV Area Index: 0.97 @ 10:35:54 AM Clinical Evaluation EBL: 5mL-10mL Procedural Details Procedure Consent Obtained. Pre-Procedure Time Out. Identified patient by full name and date of as verbalized by the patient/guarantor. Does the consent match the physician's order: Yes. Accurate & Complete Informed Consent: Yes. Inpatient/Outpatient History & Physical on Chart: Yes. If H&P is completed, is and addenduem needed: No. Visualize and Verify Site with Patient/Guarantor: N/A. Relevant Radiology Images available: Yes. The risks, benefits, and alternatives of sedation and/or procedure were discussed by physician. The patient agrees to continue. Procedure started. [facility] Clinical Fraility Score: 3: Managing Well. Project Economist Indications: SOB. Chest Pain Symptom Assessment: Atypical Angina. Cardiovascular Instability: No. Correct patient, site and procedure confirmed by cath team. PERRLA. Strong, equal hand heel layer bilaterally. Lungs clear x 5 lobes. IV Site on Arrival: 20 gauge in the right anticubital. IV Fluids: 0.9% NaCl at KVO. 900 mL infused prior to medical laboratory technicians. Pre Procedural Pulses: bilateral dorsalis pedis was 2+. Pre Procedural Pulses: bilateral posterior tibial was 3+. Pre Procedural Pulses: bilateral radial was 3+. Patient on Room air for RHC. right groin was prepped with chloroprep then draped in the usual sterile fashion. right radial was prepped with chloroprep then draped in the usual sterile fashion. right brachial was prepped with chloroprep then draped in the usual sterile fashion. Physician notified. Baseline sample Acquired. HR: 116 BPM. Patient's family in the medical laboratory technicians waiting room. Dr. Yen will update a tthe completion of the procedure. Equipment: 6F - Radial. Cardiac Cath Pack. ACIST Manifold Kit Model BT 2000. Heparinized Saline (2 units/mL), 1000 mL bag. Physician arrived. Physician scrubbed in. Immediate Pre-Procedure Time Out. Correct Patient: Yes; Correct Procedure: Yes; Correct Site: Yes; Correct Patient Position: Yes; Correct Supplies: Yes; Dried Flammable Prep: Yes; Blood Products Available: N/A;. Micropuncture wire in through the existing 20g PIV in the right brachial vein. Lidocaine 1% infiltrated to the right brachial. Venus-Len catheter inserted. Daniel guidewrie in through the swan. Oximetry samples were obtained. Normal venous range: 60-85%. Normal arterial range: 95-100%. Pressure measurements obtained. Venus-Len out. Lidocaine 1% infiltrated to the right radial. Arterial access obtained. Respiratory therapyJaelyn, called to run sats. A 5 swazi TIG catheter in over the exchange J wire. Oxygen started at 2liters/min via nasal canula. Multiple views taken of right coronary artery. Catheter removed over the exchange J wire. A 5 swazi Antonio catheter in over the exchange J wire. Multiple views taken of left coronary artery. Catheter removed over the exchange J wire. A 5 swazi Angled Pig catheter in over the exchange J wire. Jaelyn, Respiratory Therapy, here to pick pulling machine operator sats. EDP Sample taken: LV 109/1,5; HR: 77 BPM; SpO2: 98%. LV gram performed in HUYNH @ 10 mL/second for a total of 30 mL. EDP Sample taken: LV 120/2,10; HR: 94 BPM; SpO2: 99%. Pullback taken: LV 134/0,14; AO 108/60(84); Mean: 9mmHg, Peak to Peak: 6mmHg, SEP: 25sec/min; HR: 97 BPM; SpO2: 98%. Catheter removed over the exchange J wire. Dr. Yen scrubbed out. A Manual Compression was successful obtaining hemostatsis at the Right Brachial Vein insertion site. A TR Band was successful obtaining hemostatsis at the Right Radial artery insertion site. Right brachial sheath removed and manual pressure held until hemostasis was achieved. Sterile 4x4 and Op-site applied to the puncture site. No oozing or hematoma noted. Post sheath removal instructions were given and the patient verbalized understanding. Post Procedure: Pulses reassessed and unchanged. PERRLA. Strong, equal hand heel layer bilaterally. No VTE prophylaxis required. Medication's Wasted: Lidocaine 1% = 18 mL. Medication's Wasted: Nitro = 49.8 mg. Medication's Wasted: Heparin = 1000 units. Medication's Wasted: Other = Versed 1mg. Medication's Wasted: Other = Fentanyl 75 mcg. Total IV fluids: 215 mL. Post-op diagnosis: Normal coronaries; normal right sided heart pressures. Complications: none. Estimated blood loss: 5mL-10mL. Responsiveness - Normal response to verbal stimuli; alert and oriented, PERRLA. Airway - Unaffected, no intervention required; spontaneous ventilation. Circulation: W/N/L, pulses unchanged. Nausea/Vomiting: No. Procedure completed. Patient transferred by bed to CPRU. Vital chart was stopped. Access Site Site: Right Brachial Vein Sheath Size: 6 Fr Hemostasis Method: Manual Compression Hemostasis Success: Successful Site: Right Radial artery Sheath Size: 6 Fr Hemostasis Method: TR Band Hemostasis Success: Successful Procedure Medications Start: 9:37 AM Stop: 9:37 AM Medication: Versed Amount: 1 mg Route: I.V. Start: 10:03 AM Stop: 10:03 AM Medication: Nitrogylcerin Amount: 200 mcg Route: I.A. Start: 10:03 AM Stop: 10:03 AM Medication: Fentanyl Amount: 25 mcg Route: I.V. Start: 10:04 AM Stop: 10:04 AM Medication: Heparin Amount: 5000 units Route: I.V. I, the attending physician, have reviewed and verified all procedure medications. Yes, all medications given per verbal order History/Risk Factors Hypertension: Yes Dyslipidemia: Yes Peripheral Arterial Disease (PAD): No Myocardial Infarction ([place]): No Obesity: No Renal Disease: No Tobacco Use: Never Prior Interventions PCI: No CABG: No Valve Surgery: No Report Signatures Finalized by Greg Yen MD on 12/05/2024 11:10 AM
[2024-12-05] MEDS: TACROLIMUS 1 MG 1 EACH PO (06:26)
--- OUTSIDE RECORDS SUMMARY | 2024-12-05 06:49 | XMS_ITS | Encounter Summary ---
Author Organization [facility] Address [address] [place] [address] Care Team Providers Care Truck Service Technician Name Role Phone Candido Ansari DO Primary Care Provide r Encounter Details Date Type Department Care Team (Late st Contact Info) Description 11/26/2024 External Device Data [facility] ABSTRACTION Provider, Abstract NO ADDRESS ON FILE Social History Tobacco Use Types Packs/Day Years Used Date Smoking Tobacco: Never Smokeless Tobacco: Never Alcohol Use Standard Drinks/Week Comments No 0 (1 standard drink = 0.6 oz pur e alcohol) Feeling Safe Answer Date Recorded Are you in a relationship wi th someone who hurts you emotionally and/or physically? No 08/30/2024 Comments Unknown Sex and Gender Information Value Date Recorded Sex Assigned at Female 07/01/2024 1:49 PM CDT Legal Sex Female 8:57 AM CHAPERON Gender Identity Female 07/01/2024 1:49 PM CDT Sexual Orientation Not on file documented as of this encounter Plan of Treatment Not on file documented as of this encounter Visit Diagnoses Not on filedocumented in this encounter Care Teams Truck Service Technician Relationship Specialty Start Date End Date Candido Ansari DO [address] [facility] [address] [place] [address] PCP - General Internal Medicine 05/02/15 documented as of this encounter
--- OUTSIDE RECORDS SUMMARY | 2024-12-05 06:49 | XMS_ITS | Encounter Summary ---
Author Organization [facility] Address [address] [place] [address] Care Team Providers Care Dust Box Tender Name Role Phone Candido Ansari DO Primary [...] PM CDT Legal Sex Female 8:57 AM TUBER OPERATOR Gender Identity Female 07/01/2024 1:49 PM CDT Sexual Orientation Not on file documented as of this encounter Plan of Treatment Not on file documented as of this encounter Visit Diagnoses Not on filedocumented in this encounter Care Teams Dust Box Tender Relationship Specialty Start Date End Date Candido Ansari DO [address] [facility] [address] [place] [address] PCP - General Internal Medicine 05/02/15 documented as of this encounter
--- OUTSIDE RECORDS SUMMARY | 2024-12-05 06:49 | XMS_ITS | Encounter Summary ---
Author Organization [facility] Address [address] [place] [address] Care Team Providers Care Multi Craft Maintenance Technician Name Role Phone Candido Ansari DO Primary Care Provide r Encounter Details Date Type Department Care Team (Latest Contact Info) Description 03/31/2003 Outpatient Historical [facility] Fernandez Mcmullen MD [address] [place] [address] HYPERLIPIDEMIA NEC/NOS (Primary Dx); ALLERGIC RHINITIS NOS; ENURESIS NOS; AFTERCARE COPYIST USE MEDICATN Social History Tobacco Use Types Packs/Day Years Used Date Smoking Tobacco: Never Assessed Comments Unknown Sex and Gender Information Value Date Recorded Sex Assigned at Not on file Legal Sex Female 3:05 AM FOUNTAIN BRUSH ASSEMBLER Gender Identity Not on file Sexual Orientation Not on file documented as of this encounter Plan of Treatment Not on file documented as of this encounter Visit Diagnoses Diagnosis Other and unspecified hyperlipidemia- Primary Allergic rhinitis, cause unspecified Unspecified urinary incontinence Encounter for long-term (current) use of other medications documented in this encounter Care Teams Multi Craft Maintenance Technician Relationship Specialty Start Date End Date Candido Ansrai DO [address] [address] PCP - General Internal Medicine 05/02/15 documented as of this encounter
--- OUTSIDE RECORDS SUMMARY | 2024-12-05 06:49 | XMS_ITS | Encounter Summary ---
Author Organization [facility] Address [address] [place] [address] Care Team Providers Care Relationship Manager Name Role Phone Candido Ansari DO Primary Care Provide r Encounter Details Date Type Department Care Team (Late st Contact Info) Description 04/04/2003 Outpatient Historical [facility] Social History Tobacco Use Types Packs/Day Years Used Date Smoking Tobacco: Never Assessed Comments Unknown Sex and Gender Information Value Date Recorded Sex Assigned at Not on file Legal Sex Female 3:05 AM WHOLESALE DIAMOND BROKER Gender Identity Not on file Sexual Orientation Not on file documented as of this encounter Plan of Treatment Not on file documented as of this encounter Visit Diagnoses Not on filedocumented in this encounter Care Teams Relationship Manager Relationship Specialty Start Date End Date Candido Ansari DO [address] [id number] PCP - General Internal Medicine 05/02/15 documented as of this encounter
--- OUTSIDE RECORDS SUMMARY | 2024-12-05 06:49 | XMS_ITS | Encounter Summary ---
Author Organization [facility] Address [address] [place] [address] Care Team Providers Care Warehouse Operations Manager Name Role Phone Candido Ansari DO Primary Care Provide r Encounter Details Date Type Department Care Team (Late st Contact Info) Description 11/09/2024 External Device Data ST[facility] ABSTRACTION Provider, Abstract [...] PM CDT Legal Sex Female 8:57 AM AOC AADC OPERATIONS STAFF OFFICER Gender Identity Female 07/01/2024 1:49 PM CDT Sexual Orientation Not on file documented as of this encounter Plan of Treatment Not on file documented as of this encounter Visit Diagnoses Not on filedocumented in this encounter Care Teams Warehouse Operations Manager Relationship Specialty Start Date End Date Candido Ansari DO [address] [facility] [address] [place] [address] PCP - General Internal Medicine 05/02/15 documented as of this encounter
--- OUTSIDE RECORDS SUMMARY | 2024-12-05 06:49 | XMS_ITS | Clinical Summary ---
Author Organization [facility] Address [address] [place] [address] Care Team Providers Care Veterinary Receptionist Name Role Phone Ansari, Candido Carltoniel Primary Care Provide r Allergies Active Allergy Reactions Criticality Noted Date Comments Unclassified Drug Other (See Comments) 07/20/20 12 Pt does not take pain medicines makes her sick Medications levothyroxine (LEVOTHROID) 112 mcg Oral tablet Take 75 mcg by mouth daily at bedtime . Active simvastatin (ZOCOR) 20 mg Oral tablet Take 20 mg by mouth Daily LATE. Active ERGOCALCIFEROL, VITAMIN D2, (VITAMIN D ORAL) Take by mouth. Activ e flunisolide (NASALIDE) 25 mcg (0.025 %) Cisco, Non-Aerosol Administer 2 Sprays in each nostril 2 times daily. Active omeprazole (PRILOSEC) 10 mg Capsule, Delayed Release(E.C.) Take 20 mg by mouth daily with breakfast . Active cyanocobalamin (VITAMIN B-12) 100 mcg tablet Take 100 mcg by mouth daily. Active azelastine-flut icasone 137-50 mcg/spray [employer], Non-Aerosol Administer 2 Sprays in each nostril daily early childhood education coordinator. Active cholecalciferol , Vitamin D3, (VITAMIN D3) 1,000 unit Capsule Take 1,000 Units by mouth daily with breakfast. Active levocetirizine (XYZAL) 5 mg tablet Take 5 mg by mouth Daily LATE. Active CALCIUM CITRATE/VITAMIN D3 (CITRACAL + D ORAL) Take 2 Tablet by mouth daily with breakfast. Active OMEGA-3 FATTY ACIDS (FISH OIL ORAL) Take 1,200 mg by mouth Daily LATE. Active oxyCODONE-aceta minophen (PERCOCET) 5-325 mg tablet Take 1 Tablet by mouth every 4 hours as needed for Pain, Break-Through. Max Daily Amount: 6 Tablet 90 Tablet 0 6 Active Active Problems Problem Noted Date Diagnosed Date Preoperative general physical examination 2015 Obesity (BMI 30.0-34.9) 01/30/2016 Cervical radicular pain 04/16/2015 Stenosis, cervical spine 04/16/2015 DDD (degenerative disc disease), cervical 2014 Cervical spondylosis 04/16/2015 Hyperlipidemia Hypothyroidism GERD (gastroesophageal reflux disease) Resolved Problems Problem Noted Date Diagnosed Date Resolved Date R Osteoarthritis of CMC joint of thumb 07/20/2012 01/30/2016 R Trigger finger (acquired) 07/20/2012 01/30/2016 Motion sickness 01/30/2016 Family History Medical History Relation Name Comments Healthy Brother 1 Venkat Healthy Brother 2 Momo Healthy Brother 3 Claus Healthy Daughter 1 Angeline Healthy Daughter 2 Arianna Cataract Father Diabetes Father Heart Disease Father Other Father Malaria Lung Cancer Mother Smoker Healthy Son Garfield Relation Name Status Comments Brother 1 Venkat Alive Brother 2 Momo Alive Brother 3 Claus Alive Daughter 1 Angeline Alive Daughter 2 Arianna Alive Father (Age 75) Mother (Age 64) Son Garfield Alive Social History Tobacco Use Types Packs/Day Years Used Date Smoking Tobacco: Never Smokeless Tobacco: Never Alcohol Use Standard Drinks/Week Comments No 0 (1 standard drink = 0.6 oz pur e alcohol) Comments No Sex and Gender Information Value Date Recorded Sex Assigned at Not on file Legal Sex Female 3:05 AM TALENT DIRECTOR Gender Identity Not on file Sexual Orientation Not on file Last Filed Vital Signs Vital Sign Reading Time Taken Comments Blood Pressure 120/74 03/21/2016 11:33 AM CDT Pulse 71 02/25/2016 11:30 AM CDT Temperature 36.4 ??C (97.5 ??F) 02/05/2016 7:31 AM CD T Respiratory Rate 20 02/05/2016 7:31 AM CDT Oxygen Saturation 96% 02/05/2016 7:31 AM CDT Inhaled Oxygen Concentration - - Weight 79.8 kg (176 lb) 03/21/2016 11:33 AM CDT Height 157.5 cm (5' 2 ) 03/21/2016 11:33 AM CDT Body Mass Index 32.19 03/21/2016 11:33 AM CDT Plan of Treatment Health Maintenance Due Date Last Done Comments DTAP/TDAP/TD VACCINES (1 - Tdap) 1968 FIT-DNA Q 3 years 1994 FIT/FOBT Q 1 year 1994 Flex Sig/CT Colonography Q 5 years 1994 PNEUMOCOCCAL VACCINE 50+ YEA RS (1 of 1 - PCV) 1999 ZOSTER VACCINE (1 of 2) 1999 INFLUENZA VACCINE (#1) 2024 RSV VACCINE (60+ or ) (1 - 1-dose 75+ series) 2024 COLORECTAL SCREENING 12/01/2024 12/01/2014 Colorectal Cancer Screening 12/01/2024 OSTEOPOROSIS SCREENING Completed 05/04/2017, 2014 Medical Devices Implanted Type Area Service Advisor Device Identifier Shelf Expiration Date Model / Serial / Lot Spacer Allcrft Cl 6mm 5d 6183-5-006 - [id number] Implanted:Qty: 1 on 02/04/2016 by Emiliana Jacome MD at [facility] Biological N/A: Neck NELIA- SPINE 10/02/2020 6183-5-006 / / [id number] Spacer Allcrft Cl 6mm 5d 6183-5-006 - [id number] Implanted:Qty: 1 on 02/04/2016 by Emiliana Jacome MD at [facility] Biological N/A: Neck NELIA- SPINE 10/02/2020 6183-5-006 / / [id number] Hemostatic Gelfoam Powder 1gm [id number] - [id number] Implanted:Qty: 1 on 02/04/2016 by Emiliana Jacome MD at [facility] Hemostatic N/A: Neck PFIZER- PHARM 04/20/2018 [id number] / / [id number] Plate Aviator 2lvl 26mm [id number] - [id number] Implanted:Qty: 1 on 02/04/2016 by Emiliana Jacome MD at [facility] Plate N/A: Neck NELIA- SPINE [id number] / / [id number] Screw Avtr Va Sd 4.0x14mm [id number] - [id number] Implanted:Qty: 6 on 02/04/2016 by Emiliana Jacome MD at [facility] Screw N/A: Neck NELIA- SPINE [id number] / / [id number] Insurance MEDICARE PART A AND B [facility] Advance Directives For more information, please contact: [phone] * Full Code (Latest Code Status on File) Date Activated Date Inactivated Comments 02/04/2016 12:10 PM 02/05/2016 2:33 PM * Full Code Date Activated Date Inactivated Comments 02/04/2016 7:36 AM 02/04/2016 12:10 PM * Full Code Date Activated Date Inactivated Comments 01/08/2016 10:03 AM 01/09/2016 2:13 AM Care Teams Veterinary Receptionist Relationship Specialty Start Date End Date Candido Ansari DO [address] [facility] [address] [place] [address] PCP - General Internal Medicine 05/02/15
--- OUTSIDE RECORDS SUMMARY | 2024-12-05 06:49 | XMS_ITS | Patient Health Record ---
Author Organization [facility] Address [address] [place] [address] Care Team Providers Care Rod Buster Name Role Phone Carlota Jefferson APN Primary Care Provider Hugh Goffian Unavailable [phone] Lilly ONEAL, Beth Unavailable Unavailabl e Reason For Referral No Information Medications Medication SIG (Take, Route, Frequency, Duration) Notes Start Date End Date Status Simvastatin 20 MG 1 tablet in the even ing Orally Once a day Active Montelukast Sodium 10 MG 1 tablet Orally Once a day Active Citracal Plus - as directed Orally Active Alendronate Sodium 70 MG 1 tablet 30 min utes before the first food, beverage or medicine of the day with plain water Orally once weekly Active Spironolactone 25 MG 1 tablet Orally Active Tamoxifen Citrate 20 MG 1 tablet Orally Once a day Active Bumetanide 2 MG as directed Orally Active Ferrous Sulfate 325 (65 Fe) MG 2-3 tablet Orally Once a day Active Albuterol Sulfate (2.5 MG/3ML) 0.083% 3 ml as needed Inhalation every 6 hrs Active Omeprazole 20 MG 1 capsule 30 minutes before morning meal Orally Once a day Active Potassium Chloride ER 10 MEQ 1 tablet wi th food Orally Twice a day Active Levothyroxine Sodium 25 MCG 1 tablet in the morning on an empty stomach Orally Once a day Active Clotrimazole 10 MG 1 kyra Mouth/Throa t Five times a day Active Probiotic - as directed Orally Active Amoxicillin-Pot Clavulanate 875-125 MG 1 tablet Orally every 12 hrs Active Symbicort 160-4.5 MCG/ACT 1 puffs (rinse mouth after use) Inhalation Twice a day Active Apixaban 5 MG as directed Orally t wice a day for 30 days 08/29/2020 Active Albuterol Sulfate HFA 108 (90 Base) MCG/ACT 2 puffs as needed Inhalation every 6 hrs Active Immunizations Vaccine Route Administration Date Status Comme nts Influenza, seasonal, injecta ble, preservative free, 3 yrs and above Unknown 05/30/2020 Administered Social History Tobacco Use: Social History Observation Description Date Details (start date - stop date) Never Smoker NA - NA xTobacco Use/Smoking Question Answer Notes Are you a nonsmoker Problems Problem Type SNOMED Code ICD Code Onset Dates Problem Status W/U Status Risk Notes Problem History of pulmonary embolus (168213866) History of pulmonary embolism (Z86.711) Active confirmed Problem Cirrhosis - non-alcoholic (302173503) 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 Plan Of Treatment No Information Insurance Providers Payer Name Payer Address Payer Phone Subscriber Number Group Number Insured Name Patient Relationship to Insured Coverage Start Date Coverage End Date [place] Medicare [address] [place] [phone] [id number] Vanessa Eckert Self - patient is the insured [employer] Medicare Supplement Admin Office [address] [address] [place] [address] [phone] [id number] Vanessa Eckert Self - patient is the insured Medical (General) History Medical History History ICD Code left breast cancer non alcoholic cirrhosis of the liver hypothyroidism chronic cough Surgical History Surgery Date(Month/Year) tonsillectomy cholecystectomy adenoidectomy partial hysterectomy Hospitalization History Reason Date(Month/Year) Covid inpatient -[facility] COVID-[facility] June 2020 see surgical Hx
--- OUTSIDE RECORDS SUMMARY | 2024-12-05 06:49 | XMS_ITS | Clinical Summary ---
Author Organization [facility] Address [address] [facility] Attn: [place] [address] Care Team Providers Care Relocation Commissioner Name Role Phone Candido Ansari DO Primary Care Provide r Allergies Active Allergy Reactions Criticality Noted Date Comments Scopolamine Unknown 01/07/2022 Unclassified Drug Other (See Comments) 07/20/20 12 Pt does not take pain medicines makes her sick Medications busPIRone (BUSPAR) 5 mg tablet Take 1 Tablet (5 mg) by mouth every 8 hours. 2 Active fludrocortisone (FLORINEF) 0.1 mg tablet Take 1 Tablet (0.1 mg) by mouth daily. 2 Active fluticasone furoate-vilantero L (BREO ELLIPTA) 100-25 mcg/dose Disk with Device Take 1 Puff by inhalation daily. 2 Active levothyroxine 75 mcg tablet Take 1 Tablet (75 mcg) by mouth daily in the morning. 2 Active magnesium oxide (MAG-OX) 400 mg (241.3 mg magnesium) tablet Take 2 Tablets (800 mg) by mouth 2 times daily with meals. 2 Active montelukast (SINGULAIR) 10 mg tablet Take 1 Tablet (10 mg) by mouth daily at bedtime. 2 Active pantoprazole (PROTONIX) 40 mg Tablet, Delayed Release (E.C.) Take 1 Tablet (40 mg) by mouth daily in the morning. 2 Active sodium zirconium cyclosilicate (LOKELMA) 5 gram Powder in Packet Take 3 Packets (15 Grams) by mouth every 24 hours. 2 Active cyanocobalamin (VITAMIN B-12) 100 mcg tablet Take 100 mcg by mouth daily. 5 Active omeprazole (PriLOSEC) 10 mg Capsule, Delayed Release(E.C.) Take 20 mg by mouth daily with breakfast . 5 Active cholecalciferol, Vitamin D3, (VITAMIN D3) 25 mcg (1,000 unit) Capsule Take 1,000 Units by mouth daily with breakfast. 6 Active calcium citrate/vitamin D3 (CITRACAL + D ORAL) Take 2 Tablet by mouth daily with breakfast. 6 Active albuterol sulfate HFA 90 mcg/actuation aerosol inhaler Take 2 Puffs by inhalation every 4 hours as needed. Active aspirin (DARCY) 325 mg tablet Take 325 mg by mouth daily. 3 05/17/20 25 Active calcium-cholecalc iferol (OS-SHABANA 500+D) 500 mg-5 mcg (200 unit) tablet Take 1 Tablet by mouth 2 times daily with meals. 3 Active fluticasone propionate (FLONASE) 50 mcg/spray Tad, Suspension nasal inhaler Administer 2 Sprays in each nostril daily. 2 Active levothyroxine 50 mcg tablet Take 50 mcg by mouth daily before breakfast. Active melatonin 3 mg Tablet Take 6 mg by mouth nightly as needed. 4 03/07/20 25 Active omeprazole (PriLOSEC) 20 mg Capsule, Delayed Release(E.C.) Take 20 mg by mouth daily. 4 03/07/20 25 Active sodium zirconium cyclosilicate (LOKELMA) 5 gram Powder in Packet Take 5 Grams by mouth daily. 2 Active Active Problems Problem Noted Date Diagnosed Date Severe protein-calorie malnutrition 01/20/2022 S/P liver transplant 01/07/2022 JAMES (acute kidney injury) 01/07/2022 Hyperkalemia 01/07/2022 Hypotension 01/07/2022 Steroid-induced hyperglycemia 01/07/2022 Anemia in CKD (chronic kidney disease) Hyperphosphatemia 01/07/2022 Preoperative general physical examination 2015 Obesity (BMI 30.0-34.9) 01/30/2016 Cervical radicular pain 04/16/2015 Cervical spondylosis 04/16/2015 Stenosis, cervical spine 04/16/2015 DDD (degenerative disc disease), cervical 2014 Hyperlipidemia Hypothyroidism GERD (gastroesophageal reflux disease) Asthma Anxiety Hyponatremia Temporomandibular joint disorder H/O hernia repair H/O cervical discectomy Breast cancer Arthritis Resolved Problems Problem Noted Date Diagnosed Date Resolved Date R Osteoarthritis of CMC joint of thumb 07/20/2012 01/30/2016 R Trigger finger (acquired) 07/20/2012 01/30/2016 Motion sickness 01/30/2016 Encounters Date Type Department Care Team Description 11/26/2024 External Device Data [facility] ABSTRACTION Provider, Abstract 11/26/2024 External Device Data [facility] ABSTRACTION Provider, Abstract 11/09/2024 External Device Data [facility] ABSTRACTION Provider, Abstract 10/13/2024 External Device Data [facility] ABSTRACTION Provider, Abstract 10/05/2024 2:50 PM HEADING SAW OPERATOR Office Visit [facility] [address] [place] [address] Brandt Garcia, FABRICATION TECHNICIAN Spondylosis of lumbosacral spine with radiculopathy (Primary Dx) from Last 3 Months Family History Medical History Relation Name Comments [...] Date Smoking Tobacco: Never Smokeless Tobacco: Never Tobacco Cessation:Counseling Given: Not Answered Alcohol Use Standard Drinks/Week Comments No 0 (1 standard drink = 0.6 oz pur e alcohol) Feeling Safe Answer Date Recorded Are you in a relationship wi th someone who hurts you emotionally and/or physically? No 08/30/2024 Comments Unknown Sex and Gender Information Value Date Recorded Sex Assigned at Female 07/01/2024 1:49 PM CDT Legal Sex Female 8:57 AM HEADING SAW OPERATOR Gender Identity Female 07/01/2024 1:49 PM CDT Sexual Orientation Not on file Last Filed Vital Signs Vital Sign Reading Time Taken Comments Blood Pressure 122/77 08/30/2024 1:53 PM HEADING SAW OPERATOR Pulse 91 10/05/2024 2:27 PM HEADING SAW OPERATOR Temperature 36.5 ??C (97.7 ??F) 08/30/2024 12:[address] Respiratory Rate 16 08/30/2024 12:51 PM HEADING SAW OPERATOR Oxygen Saturation 97% 10/05/2024 2:27 PM HEADING SAW OPERATOR Inhaled Oxygen Concentration - - Weight 63.5 kg (140 lb) 10/05/2024 2:27 PM HEADING SAW OPERATOR Height 152.4 cm (5') 10/05/2024 2:27 PM HEADING SAW OPERATOR Body Mass Index 27.34 10/05/2024 2:27 PM HEADING SAW OPERATOR Plan of Treatment Health Maintenance Due Date Last Done Comments DTAP/TDAP/TD VACCINES (1 - Tdap) 1968 PNEUMOCOCCAL VACCINE 50+ YEA RS (1 of 2 - PCV) 1968 ZOSTER VACCINE (1 of 2) 1968 FIT-DNA Q 3 years 1994 FIT/FOBT Q 1 year 1994 Flex Sig/CT Colonography Q 5 years 1994 INFLUENZA VACCINE (#1) 2024 05/30/2020 RSV VACCINE (60+ or ) (1 - 1-dose 75+ series) 2024 COLORECTAL SCREENING 12/01/2024 12/01/2014 Colorectal Cancer Screening 12/01/2024 OSTEOPOROSIS SCREENING Completed 4, 05/30/2024, 12/29/2022, Additional history exists Medical Devices Implanted Type Area Semiconductor Dies Loader Device Identifier Shelf Expiration Date Model / Serial / Lot Spacer Allcrft Cl 6mm 5d 6183-5-006 - [id number] Implanted:Qty: 1 on 02/04/2016 by Emiliana Jacome MD Biological N/A: Neck NELIA- SPINE 10/02/2020 6183-5-006 / / [id number] Spacer Allcrft Cl 6mm 5d 6183-5-006 - [id number] Implanted:Qty: 1 on 02/04/2016 by Emiliana Jacome MD Biological N/A: Neck NELIA- SPINE 10/02/2020 6183-5-006 / / [id number] Hemostatic Gelfoam Powder 1gm [id number] - [id number] Implanted:Qty: 1 on 02/04/2016 by Emiliana Jacome MD Hemostatic N/A: Neck PFIZER- PHARM 04/20/2018 [id number] / / [id number] Plate Aviator 2lvl 26mm [id number] - [id number] Implanted:Qty: 1 on 02/04/2016 by Emiliana Jacome MD Plate N/A: Neck NELIA- SPINE [id number] / / [id number] Screw Avtr Va Sd 4.0x14mm [id number] - [id number] Implanted:Qty: 6 on 02/04/2016 by Emiliana Jacome MD Screw N/A: Neck NELIA- SPINE [id number] / / [id number] Insurance MEDICARE PART A AND B [employer] LIFE INS [id number] [id number] Advance Directives For more information, please contact: [phone] Documents on File Type Date Recorded Patient Safety Companion Expl anation Advance Directive POA 01/29/2022 9:59 AM * Full Code (Latest Code Status on File) Date Activated Date Inactivated Comments 01/07/2022 4:47 PM 01/21/2022 1:41 PM Care Teams Relocation Commissioner Relationship Specialty Start Date End Date Candido Ansari DO [address] [address] PCP - General Internal Medicine 05/02/15
--- OUTSIDE RECORDS SUMMARY | 2024-12-05 06:49 | XMS_ITS ---
Author Organization [facility] Address [address] [facility] Attn: [place] [address] Care Team Providers Care Sand Caster Name Role Phone Candido Ansari DO Primary Care Provide r Active Problems Problem Noted Date Diagnosed Date [...] repair H/O cervical discectomy Breast cancer Arthritis Current Treatment and Therapy Plans No current plan information found. Past Treatment and Therapy Plans No past plan information found. Lifetime Dose Tracking * Chemical Lifetime Dose Automatic Entry Manual Entr y Effective Dose 2.8 mSv 0 mSv 2.8 mSv Total DLP 264 DLP 0 DLP 264 DLP CTDIvol Max 16.8 mGy 0 mGy 16.8 mGy CTDIvol Min 16.8 mGy 0 mGy 16.8 mGy Resolved Problems Problem Noted Date Diagnosed Date Resolved Date R Osteoarthritis of CMC joint of thumb 07/20/2012 01/30/2016 R Trigger finger (acquired) 07/20/2012 01/30/2016 Motion sickness 01/30/2016
[2024-12-05] MEDS: montelukast sodium 10 mg Tablet PO (08:16)
[2024-12-05] MEDS: BuSPIRONE 10 mg Tablet 5 MG PO (08:16)
[2024-12-05] MEDS: aspirin 325 mg Tablet PO (08:16)
[2024-12-05] MEDS: calcium carbonate 500 mg Chew Tablet PO (08:16)
[2024-12-05] MEDS: albuterol 2.5 mg/3 mL Neb INHALATION ×3 (08:33→16:57)
[2024-12-05] MEDS: budesonide 0.5 mg/2 mL Neb INHALATION (08:33)
--- NOTE | 2024-12-05 09:36 | P.HPUD_ITS ---
Surgery/Procedure H&P Update DATE OF PROCEDURE: December 05, 2024 DATE H&P PERFORMED: 12/04/24 H&P UPDATE INFORMATION: I have reviewed H&P completed within last 30 days, I have examined patient prior to procedure and No changes to prior documentation PREOP DIAGNOSIS: Unexplained shortness of breath, preop for liver transplant PRIMARY INDICATION FOR PROCEDURE: Preop for liver transplant, unexplained shortness of breath Right and left heart cath requested by solutions manager PLANNED PROCEDURE: As above PATIENT REASSESSED PRIOR TO SEDATION, WITH NO CHANGE NOTED: Yes PHYSICAL EXAM: alert, oriented x 3, clear to auscultation bilaterally, regular rate & rhythm and operative site marked AIRWAY EVAL/ANESTHESIA PLAN: ASA II, Risks, benefits & alternatives of sedation and/or procedure discussed and Patient agrees to continue as planned ADDITIONAL INFORMATION: All risk-benefit and alternative for the procedure has been explained to the patient including 2% risk of stroke major bleed, risk for minor bleed oozing infection hematoma pseudoaneurysm. There is risk for urgent emergent bypass or vascular surgery. Patient would like to proceed with it. She understands 6% risk of contrast-induced nephropathy, today creatinine is 1.1 which is improved from 1.4 patient has been rehydrated overnight.
--- NOTE | 2024-12-05 09:43 | P.PN_ITS ---
<Statement entered by Greg Yen MD - 12/05/24 18:42> patient was evaluated and cared for in conjunction with an advanced practice practitioner. I personally examined the patient and reviewed the chart and all pertinent data including imaging, telemetry, and laboratory results. I discussed the patient in detail with the advanced practice practitioner. Please see their note for complete H&P testing result and agreed upon plan of care for the patient. Subjective 2 Subjective: She has not had any chest pain overnight, no worsening shortness of breath, no lower extremity edema. Blood pressure normotensive. Vitals/I&O/Wt Last Vital Signs Temp 97.9 F 12/05/24 07:53 Pulse 74 12/05/24 08:00 Resp 18 12/05/24 08:00 BP 124/88 12/05/24 07:53 Pulse Ox 95 12/05/24 08:00 O2 Del Method Room Air 12/05/24 08:00 12/04/24 12/05/24 12/05/24 22:59 06:59 14:59 Intake Total 240 / 240 Balance 240 / 240 Weight last 48 hrs Weight 135 lb 12.8 oz Physical Exam 2 Const: COMMON NORMALS: no acute distress and patient oriented x3 GENERAL APPEARANCE: cooperative and comfortable ORIENTATION/CONSCIOUSNESS: Yes awake, Yes oriented to person, Yes oriented to place and Yes oriented to time Chest: COMMONS NORMALS: normal inspection of the chest and normal palpation of entire chest wall CHEST: Yes Symmetrical chest wall rise Resp: COMMON NORMALS: normal respiratory effort, No retractions, No use of accessory muscles and clear to auscultation bilaterally EFFORT & INSPECTION: Yes symmetric chest movement AUSCULTATION: clear to auscultation bilaterally Cardio: COMMON NORMALS: regular rate, regular rhythm, S1 normal heart sound present, S2 normal heart sound present, No gallops present (Cardio), No clicks present (Cardio), No murmurs present (Cardio) and No rub (Cardio) RATE: r egular rate RHYTHM: regular rhythm HEART SOUNDS: S1 normal heart sound present and S2 normal heart sound present PERIPHERAL PULSES: radial pulses present Extremity: COMMON NORMALS: no pedal edema Neuro: COMMON NORMALS: patient oriented x3 and moves all extremities S ENSORIUM/ORIENTATION: Yes oriented to person, Yes oriented to place and Yes oriented to time Data 12/05/24 03:24 12/05/24 03:24 A&P Assessment and plan (1) Shortness of breath: (2) Anginal equivalent: (3) CKD (chronic kidney disease) stage 3, GFR 30-59 ml/min: (4) Dehydration: Plan Plan is for right and left heart cath today. Creatinine improved to 1.1, down from 1.4 yesterday. Further plan will be devised after her procedure. PDMP PDMP Reviewed: Not Reviewed Attestations 2 Medical Necessity Statement*: Left and right heart cath today for workup unexplained shortness of breath Coding Level of Care Code Acute Code for Chg Fwd Diagnoses Shortness of breath R06.02 Anginal equivalent I20.89 CKD (chronic kidney disease) stage 3, GFR 30-59 ml/min N18.30 Dehydration E86.0
--- NOTE | 2024-12-05 09:44 | PC.CHAP ---
Pastoral Care Encounter/Spiritual Assessment Type of Contact [] Declined folding machine operator visit [] Patient/Family/Request visit [] Outpatient visit [] Follow-up visit [] Physician referral [] Code/Alert [x] Routine visit [] Staff referral [] Actively dying [] Patient sleeping [x] Family support [] [] Out of room [] Palliative care [] [] Receiving care in room [] Pre-surgical visit [] Trauma [] Long length of stay [] ICU visit [] Other: Relational/Emotional Strength [] Patient feels connected with others/family/visitors/staff [] Distress [] Loneliness/isolation [] Abandonment Spirituality of Patient [x] Person of Cayla [x] Attends Sikhism of their [place] [x] Believes in Prayer [] Reads Bible or Mosque materials [] There are Spiritual issues to be addressed Automobile Mechanic Motor Interventions [x] Prayer [x] Active listening [] Non-anxious presence [] Spiritual/emotional support [] Crisis/trauma care [] Spiritual counseling [] Bereavement support [] Provided bereavement packet [x] Provided Bible/devotional materials [] Provided toy/stuffed animal, coloring book to patient or family member [] Provided Communion [] Anointing/Critz [] Salvation [x] Completed spiritual assessment [] Other: Impact on Illness or Injury [] Angry [] Fearful [] Anxious [] Often cries [] Exhaustion [] Unable to work [] Unable to attend jewish [] Unable to walk/stand [] Unable to read [] Unable to drive [] Unable to eat/drink [] Unable to sleep [] Unable to be with family [] Patient intubated [] Other: Summary Time spent with patient 20 min
[2024-12-05 10:21] LABS: Arterial Blood Gas Hematocrit 22.7 % (37-47); Blood Gas Operator Identificat glc; Blood Gas Sample Site Not specified; Blood Gas Sample Type Not specified; Carboxyhemoglobin 1.2 %THgb (0.4-20.1); HGB O2 Sat 74.4 % (95-100); Methemoglobin 0.5 % (0.4-1.5); Total Hemoglobin 7.4 g/dL (12-16)
[2024-12-05 10:24] LABS: Arterial Blood Gas Hematocrit 12.7 % (37-47); Blood Gas Operator Identificat glc; Blood Gas Sample Site Not specified; Blood Gas Sample Type Not specified; Carboxyhemoglobin 1.3 %THgb (0.4-20.1); HGB O2 Sat 74.1 % (95-100); Total Hemoglobin < 5.0 g/dL (12-16)
[2024-12-05 10:26] LABS: Blood Gas Operator Identificat glc; Blood Gas Sample Site Not specified; Blood Gas Sample Type Not specified; Carboxyhemoglobin 1.2 %THgb (0.4-20.1); HGB O2 Sat 71.8 % (95-100); Methemoglobin 0.5 % (0.4-1.5); Total Hemoglobin 7.8 g/dL (12-16)
[2024-12-05 10:28] LABS: Arterial Blood Gas Hematocrit 9.4 % (37-47); Blood Gas Operator Identificat glc; Blood Gas Sample Site Not specified; Blood Gas Sample Type Not specified; Carboxyhemoglobin 0.9 %THgb (0.4-20.1); HGB O2 Sat 95.7 % (95-100); Methemoglobin 1.6 % (0.4-1.5); Total Hemoglobin < 5.0 g/dL (12-16)
--- NOTE | 2024-12-05 16:47 | P.DS_ITS ---
<Statement entered by Greg Yen MD - 12/05/24 18:34> Patient was evaluated and cared for in conjunction with an advanced practice practitioner. I personally examined the patient and reviewed the chart and all pertinent data including imaging, telemetry, and laboratory results. I discussed the patient in detail with the advanced practice practitioner. Please see their note for complete H&P testing result and agreed upon plan of care for the patient. Discharge Providers Date of Admission: 12/04/24 14:00 Date of Discharge: December 05, 2024 Attending Provider at Admission: Greg Yen MD Attending Provider at Discharge: Greg Yen MD Primary Care Provider: Julia Ortiz Diagnoses at Discharge Discharge Diagnosis (1) Shortness of breath: Status: Acute (2) Anginal equivalent: Status: Acute (3) CKD (chronic kidney disease) stage 3, GFR 30-59 ml/min: Status: Acute (4) Dehydration: Status: Acute Reason for Visit Reason for Visit: pre hydration for CCL CSU 104 Brief History: Vanessa Stewart is a 74 year old female past medical history significant for liver cirrhosis from secondary fatty liver etiology on liver transplant list, hyperlipidemia, bilateral carpal tunnel syndrome, asthma, chronic cough and chronic kidney disease who struggling with unexplained shortness of breath has been referred to us from 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 Andrews to perform left and right heart cath in order to rule out obstructive coronary artery disease pulmonary AVM or intracardiac shunt. Patient baseline creatinine 1.3-1.4. She appeared to be dehydrated being on diuretics. It is the reason she has been admitted for overnight IV hydration for acute on chronic kidney disease in order to prevent contrast induced nephropathy. We will be proceeding with left and right heart cath tomorrow. Hospital Course Hospital Course She underwent right left heart cath today revealing no disease in the left main, LAD, RCA or circumflex coronary arteries with normal right and left heart pressures. No complications with right radial cath site. She will be discharged home today. Follow-up with PCP for BMP in 7 to 10 days and with cardiology in 3 weeks. She does not require any diuretic therapy currently. Physical Exam Const: COMMON NORMALS: no acute distress and patient oriented x3 GENERAL APPEARANCE: cooperative ORIENTATION/CONSCIOUSNESS: Yes awake, Yes oriented to person, Yes oriented to place and Yes oriented to time Chest: COMMONS NORMALS: normal inspection of the chest and normal palpation of entire chest wall CHEST: Yes Symmetrical chest wall rise Resp: COMMON NORMALS: normal respiratory effort, No retractions, No use of accessory muscles and clear to auscultation bilaterally AUSCULTATION: clear to auscultation bilaterally Cardio: COMMON NORMALS: regular rate, regular rhythm, S1 normal heart sound present, S2 normal heart sound present, No gallops present (Cardio), No clicks present (Cardio), No murmurs present (Cardio) and No rub (Cardio) RATE: regular rate RHYTHM: regular rhythm HEART SOUNDS: S1 normal heart sound present and S2 normal heart sound present PERIPHERAL PULSES: radial pulses present positive right 2+ and femoral pulses present positive right 2+ Neuro: COMMON NORMALS: patient oriented x3 and moves all extremities SENSORIUM/ORIENTATION: Yes oriented to person, Yes oriented to place and Yes oriented to time Skin: WOUNDS: Yes surgical site (no hematoma palpable) Details: no odor Discharge Data Studies Completed and Pending Completed Studies During Hospitalization Category Date Time Status [employer] request for service Routine Exams 12/05/24 06:23 Completed Laboratory Results WBC 8.60 10^3/uL (3.29-11.43) 12/05/24 03:24 RBC 3.23 10^6/uL (3.85-5.65) L 12/05/24 03:24 Hgb 9.60 g/dL (11.27-16.99) L 12/05/24 03:24 Hct 29.6 % (36-47) L 12/05/24 03:24 MCV 91.6 fl (85-98) 12/05/24 03:24 MCH 29.7 pg (27-33) 12/05/24 03:24 MCHC 32.4 g/dL (30-55) 12/05/24 03:24 RDW 13.6 % (12.1-15.1) 12/05/24 03:24 Plt Count 203 10^3/cmm (157-399) 12/05/24 03:24 MPV 9.7 fL (7.4-10.4) 12/05/24 03:24 Neut % (Auto) 66.1 % 12/05/24 03:24 Lymph % (Auto) 25.0 % 12/05/24 03:24 [place] % (Auto) 7.0 % 12/05/24 03:24 Eos % (Auto) 1.2 % 12/05/24 03:24 Baso % (Auto) 0.1 % 12/05/24 03:24 Neut # (Auto) 5.69 10^3/uL (1.8-7.7) 12/05/24 03:24 Lymph # (Auto) 2.2 10^3/uL (0.8-4.8) 12/05/24 03:24 [place] # (Auto) 0.6 10^3/uL (0.2-0.9) 12/05/24 03:24 Eos # (Auto) 0.1 10^3/uL (0.0-0.8) 12/05/24 03:24 Baso # (Auto) 0.0 10^3/uL (0.0-0.1) 12/05/24 03: Nucleated RBC % (auto) 0 % 12/05/24 03: Nucleated RBCs # 0.0 /100WBC 12/05/24 03:24 Specimen Type Not specified 12/05/24 10:08 Specimen Type Not specified 12/05/24 10:08 Specimen Type Not specified 12/05/24 10:08 Specimen Type Not specified 12/05/24 10:08 Sample Site Not specified 12/05/24 10:08 Sample Site Not specified 12/05/24 10:08 Sample Site Not specified 12/05/24 10:08 Sample Site Not specified 12/05/24 10:08 Tayo Test N/a 12/05/24 10:08 Tayo Test N/a 12/05/24 10:08 Tayo Test N/a 12/05/24 10:08 Tayo Test N/a 12/05/24 10:08 A-a O2 Gradient Not Reportable 12/05/24 10:08 A-a O2 Gradient Not Reportable 12/05/24 10:08 A-a O2 Gradient Not Reportable 12/05/24 10:08 A-a O2 Gradient Not Reportable 12/05/24 10:08 Hematocrit 9.4 % (37-47) L 12/05/24 10:08 Hematocrit 12.7 % (37-47) L 12/05/24 10:08 Hematocrit 22.7 % (37-47) L 12/05/24 10:08 Hematocrit 24.0 % (37-47) L 12/05/24 10:08 Hgb O2 Saturation 71.8 % (95-100) L 12/05/24 10:08 Hgb O2 Saturation 74.1 % (95-100) L 12/05/24 10:08 Hgb O2 Saturation 74.4 % (95-100) L 12/05/24 10:08 Hgb O2 Saturation 95.7 % (95-100) 12/05/24 10:08 Carboxyhemoglobin 0.9 %THgb (0.4-20.1) 12/05/24 10:08 Carboxyhemoglobin 1.2 %THgb (0.4-20.1) 12/05/24 10:08 Carboxyhemoglobin 1.2 %THgb (0.4-20.1) 12/05/24 10:08 Carboxyhemoglobin 1.3 %THgb (0.4-20.1) 12/05/24 10:08 Methemoglobin 0.5 % (0.4-1.5) 12/05/24 10:08 Methemoglobin 0.5 % (0.4-1.5) 12/05/24 10:08 Methemoglobin 1.0 % (0.4-1.5) 12/05/24 10:08 Methemoglobin 1.6 % (0.4-1.5) H 12/05/24 10:08 Total Hemoglobin 7.4 g/dL (12-16) L 12/05/24 10:08 Total Hemoglobin 7.8 g/dL (12-16) L 12/05/24 10:08 Total Hemoglobin < 5.0 g/dL (12-16) L 12/05/24 10:08 Total Hemoglobin < 5.0 g/dL (12-16) L 12/05/24 10:08 O2 Delivery Device Not Reportable 12/05/24 10:08 O2 Delivery Device Not Reportable 12/05/24 10:08 O2 Delivery Device Not Reportable 12/05/24 10:08 O2 Delivery Device Not Reportable 12/05/24 10:08 Kitchen Porter ID glc 12/05/24 10:08 Kitchen Porter ID glc 12/05/24 10:08 Kitchen Porter ID glc 12/05/24 10:08 Kitchen Porter ID glc 12/05/24 10:08 Sodium 139 mmol/L (136-145) 12/05/24 03:24 Potassium 4.4 mmol/L (3.5-5.1) 12/05/24 03:24 Chloride 107 mmol/L (98-107) 12/05/24 03:24 Carbon Dioxide 23 mmol/L (22-29) 12/05/24 03:24 Anion Gap 13.4 (5-19) 12/05/24 03:24 BUN 26 mg/dL (8-23) H 12/05/24 03:24 Creatinine 1.1 mg/dL (0.5-0.9) H 12/05/24 03:24 GFR Calculation Not Reportable 12/05/24 03:24 Glucose 92 mg/dL (65-115) 12/05/24 03:24 Calculated Osmolality 292 mOsm/kg (285-295) 12/05/24 03:24 Calcium 8.8 mg/dL (8.5-10.5) 12/05/24 03:24 Vitals Last Vital Signs Temp 97.8 F 12/05/24 12:00 Pulse 88 12/05/24 12:00 Resp 18 12/05/24 12:00 BP 107/54 12/05/24 12:00 Pulse Ox 100 12/05/24 12:00 O2 Del Method Room Air 12/05/24 12:00 Discharge Plan Discharge Patient Disposition: Home Condition: Stable Prescriptions: Continued montelukast 10 mg tablet 10 mg PO DAILY Qty: 90 3RF albuterol sulfate [Ventolin HFA] 90 mcg/actuation HFA aerosol inhaler 2 puff INHALATION Q6H MDD 8 puffs PRN (Reason: shortness of breath or wheezin g) Qty: 8.5 3RF fluticasone propionate 50 mcg/actuation spray,suspension 1 spray INTRANASAL BID PRN (Reason: allergies) Rx Instructions: administer into each nostril buspirone 5 mg tablet 5 mg PO BID aspirin 325 mg tablet 325 mg PO QAM calcium carbonate 500 mg calcium (1,250 mg) tablet 500 mg PO BID multivitamin Tablet 1 tab PO QAM ipratropium-albuterol 0.5 mg-3 mg(2.5 mg base)/3 mL Solution For Nebulization 3 ml INHALATION Q4H PRN (Reason: Shortness Of Breath) cetirizine 10 mg tablet 10 mg PO QAM melatonin 3 mg Tablet 6 mg PO QPM levothyroxine 50 mcg tablet 50 mcg PO QAM fluticasone furoate-vilanterol [Breo Ellipta] 100-25 mcg/dose blister with device 1 inh INHALATION .9AM Envarsus XR 1 mg Tablet Extended Release 24 Hr 1 mg PO QAM Rx Instructions: must be taken on empty stomach Lokelma 5 gram Powder In Packet 5 g PO DAILY omeprazole 20 mg capsule,delayed release(DR/EC) 20 mg PO QAM Discharge Orders: Discharge Order (Routine); Ordered 12/05/24 Ordered By: Miranda Cloud Referrals: Miranda Cloud FNP [Nurse Practitioner] - 12/20/24 11:45 am Julia Ortiz PA [Primary Care Provider] - 7-10 days (for [facility]) Discharge Diet: Advance as tolerated Discharge Activity: Increase activity as tolerated Patient Instructions: Dyspnea (DC), Heart Catheterization (DC), Opioid Safety, Post Angiogram Home Care Instructions Activity Restrictions/Additional Instructions: No lifting over 5 pounds with right arm for the next 3 days. Discharge Attestations Time Spent in Discharge Care*: less than 30 min Quality Metrics Clinical Quality Measures [ No reported AMI, CVA or VTE this stay] Coding Level of Care Code Acute Code for Chg Fwd Diagnoses Shortness of breath R06.02 Anginal equivalent I20.89 CKD (chronic kidney disease) stage 3, GFR 30-59 ml/min N18.30 Dehydration E86.0
--- NOTE | 2024-12-05 17:56 | PC.NURSE ---
TR band removed per protocol. Patient toloerated well. Education provided at DC
== END 2024-12-05 17:57 | disposition home or self-care (01) | DRG 641 ==
PROVIDERS: Admitting Provider Internal Medicine Cardiovascular Disease; PCP Physician Assistant; Visit Provider Internal Medicine Cardiovascular Disease
PROC: B2111ZZ Fluoroscopy of Multiple Coronary Arteries using Low Osmolar Contrast (ICD-10-PCS; principal; 2024-12-05 10:35)
DX: E86.0 Dehydration (principal); N17.9 Acute kidney failure, unspecified; I12.9 Hypertensive chronic kidney disease with stage 1 through stage 4 chronic kidney disease, or unspecified chronic kidney disease; N18.30 Chronic kidney disease, stage 3 unspecified; K74.60 Unspecified cirrhosis of liver; K76.0 Fatty (change of) liver, not elsewhere classified; E78.5 Hyperlipidemia, unspecified; G56.03 Carpal tunnel syndrome, bilateral upper limbs; J45.909 Unspecified asthma, uncomplicated; Z79.82 Long term (current) use of aspirin; I20.89 Other forms of angina pectoris; N39.46 Mixed incontinence; Z92.3 Personal history of irradiation; Z85.3 Personal history of malignant neoplasm of breast; E03.9 Hypothyroidism, unspecified; K21.9 Gastro-esophageal reflux disease without esophagitis
CPT/HCPCS: 36415; 80048; 82810; 85025; 94640; G0379; J1644; J2250; J3010; J3490; J7030; J7613; J7626; J9999

== ENCOUNTER → 2024-12-19 15:57 | Outpatient (BNVA) | payer MEDICARE, OTHER, SELFPAY | PROVIDERS: PCP Physician Assistant; Visit Provider Nurse Practitioner Family | DX: I12.9 Hypertensive chronic kidney disease with stage 1 through stage 4 chronic kidney disease, or unspecified chronic kidney disease (principal); N18.30 Chronic kidney disease, stage 3 unspecified; Z94.4 Liver transplant status; R06.02 Shortness of breath | CPT/HCPCS: 36415; 80048; 99214 ==

== ENCOUNTER 2024-12-20 05:00 | Outpatient (RCR) | payer MEDICARE, OTHER, SELFPAY | END 2025-01-18 23:59 | disposition home or self-care (01) | LOC: SPT 05:00 | PROVIDERS: PCP Physician Assistant; Visit Provider Podiatrist Foot & Ankle Surgery | DX: M72.2 Plantar fascial fibromatosis (principal) | CPT/HCPCS: 97110; 97140; 97164 ==

== ENCOUNTER 2025-01-19 05:00 | Outpatient (RCR) | payer MEDICARE, OTHER, SELFPAY | END 2025-02-18 23:55 | disposition home or self-care (01) | LOC: SPT 05:00 | PROVIDERS: PCP Physician Assistant; Visit Provider Podiatrist Foot & Ankle Surgery | DX: M72.2 Plantar fascial fibromatosis (principal) | CPT/HCPCS: 97110; 97140 ==

== ENCOUNTER → 2025-01-23 13:07 | Outpatient (BNVA) | payer MEDICARE, OTHER, SELFPAY | PROVIDERS: PCP Physician Assistant; Visit Provider Anesthesiology Pain Medicine | DX: M79.18 Myalgia, other site (principal); M47.812 Spondylosis without myelopathy or radiculopathy, cervical region; M54.2 Cervicalgia; M54.9 Dorsalgia, unspecified; Z98.1 Arthrodesis status | CPT/HCPCS: 20553; 99214; J1010; J3490 ==

== ENCOUNTER → 2025-03-28 13:10 | Outpatient (BNVA) | payer MEDICARE, OTHER, SELFPAY | PROVIDERS: PCP Physician Assistant; Visit Provider Anesthesiology Pain Medicine | DX: M79.18 Myalgia, other site (principal); M54.9 Dorsalgia, unspecified; M54.2 Cervicalgia; Z98.1 Arthrodesis status; M47.812 Spondylosis without myelopathy or radiculopathy, cervical region | CPT/HCPCS: 20553; 99214; J1010; J3490 ==

== ENCOUNTER → 2025-05-31 10:22 | Outpatient (BNVA) | payer MEDICARE, OTHER, SELFPAY | PROVIDERS: PCP Physician Assistant; Visit Provider Nurse Practitioner Family | DX: L81.4 Other melanin hyperpigmentation (principal); D69.2 Other nonthrombocytopenic purpura; L81.8 Other specified disorders of pigmentation; L81.1 Chloasma; D36.11 Benign neoplasm of peripheral nerves and autonomic nervous system of face, head, and neck; L57.8 Other skin changes due to chronic exposure to nonionizing radiation; L82.1 Other seborrheic keratosis; Z92.25 Personal history of immunosuppression therapy; D48.5 Neoplasm of uncertain behavior of skin | CPT/HCPCS: 11102; 99213 ==